=== PATIENT | male | born 1970 | race Caucasian/White ===

== ENCOUNTER 2017-06-17 13:32 | Inpatient (IN) | payer OTHER ==
[2017-06-17 14:21] VITALS: BMI 29.5
--- NOTE | 2017-06-17 15:11 | HP ---
CIWA Score - CIWA Score Nausea/Vomitin-Mild Nausea/No Vomiting Muscle Tremors: 4-Moderate,w/Arms Extend Anxiety: 4-Mod. Anxious/Guarded Agitation: 3 Paroxysmal Sweats: 3 Orientation: 0-Oriented Tacttile Disturbances: 1-Very Mild Itch/Numbness Auditory Disturbances: 0-None Visual Disturbances: 0-None Headache: 0-None Present CIWA-Ar Total Score: 16 Admission ROS BHS - HPI Chief Complaint: Withdrawal sx. Allergies/Adverse Reactions: Allergies Allergy/AdvReac Type Severity Reaction Status Date / Time No Known Allergies Allergy Verified 06/23/16 13:18 History of Present Illness: 47 y/o man with a long hx. of drug dependence is admitted for detox. Pt. has been in previous detox, denies significant period drug free. Last detox at [facility] > a month ago. Exam Limitations: No Limitations - Ebola screening Have you traveled outside of the country in the last 21 days: No Have you had contact with anyone from an Ebola affected area: No Have you been sick,other than usual withdrawal symptoms: No Do you have a fever: No - Review of Systems Constitutional: Diaphoresis EENT: reports: No Symptoms Reported Respiratory: reports: No Symptoms reported Cardiac: reports: No Symptoms Reported GI: reports: Nausea, Abdominal cramping Musculoskeletal: reports: Joint Pain Integumentary: reports: Sweating Neuro: reports: Seizure (last one 03/2016), Tremors Endocrine: reports: No Symptoms Reported Hematology: reports: No Symptoms Reported Psychiatric: reports: Orientated x3, Anxious Other Systems: Reviewed and Negative Patient History - Patient Medical History Hx Anemia: No Hx Asthma: No Hx Chronic Obstructive Pulmonary Disease (COPD): No Hx Cancer: No Hx Cardiac Disorders: No Hx Congestive Heart Failure: No Hx Hypertension: No Hx Hypercholesterolemia: No Hx Pacemaker: No HX Cerebrovascular Accident: No Hx Seizures: Yes (last one 03/2016) Hx Dementia: No Hx Diabetes: No Hx Gastrointestinal Disorders: Yes (TUMS NEEDED) Hx Liver Disease: No Hx Genitourinary Disorders: No Hx Sexually Transmitted Disorders: Yes (CHLAMYDIA X 2, IN THE PAST) Hx Renal Disease (ESRD): No Hx Thyroid Disease: No Hx Human Immunodeficiency Virus (HIV): No Hx Hepatitis C: No Hx Depression: No Hx Suicide Attempt: No Hx Bipolar Disorder: No Hx Schizophrenia: No - Patient Surgical History Past Surgical History: Yes Hx Neurologic Surgery: No Hx Cataract Extraction: No Hx Cardiac Surgery: No Hx Lung Surgery: No Hx Breast Surgery: No Hx Breast Biopsy: No Hx Abdominal Surgery: No Hx Appendectomy: No Hx Cholecystectomy: Yes (2004) Other Surgical History: right inguinal hernia x2 and left inguinal repair 2010; nose polyps removal - PPD History Previous Implant?: Yes Documented Results: Positive w/o proof PPD to be Administered?: No - Smoking Cessation Smoking history: Current every day smoker Have you smoked in the past 12 months: Yes Aproximately how many cigarettes per day: 25 Hx Chewing Tobacco Use: No Initiated information on smoking cessation: Yes 'Breaking Loose' booklet given: 06/17/17 - Substance & Tx. History Hx Alcohol Use: No Hx Substance Use: Yes Substance Use Type: Tranquilizers Hx Substance Use Treatment: Yes ([facility] 03/2017) - Substances Abused Alprazolam (Xanax) Route: Oral Frequency: Daily Amount used: 20mg Age of first use: 28 Date of Last Use: 06/17/17 Family Disease History - Family Disease History Family Disease History: Diabetes: Father (pancreatic CA alive,post surgical DM) , Heart Disease: Grandparent, Mother, CA: Father Admission Physical Exam BHS - Vital Signs Vital Signs: Vital Signs - 24 hr 06/17/17 14:18 Temperature 96.7 F L Pulse Rate 70 Respiratory 19 Rate Blood Pressure 117/77 - Physical General Appearance: Yes: Tremorous, Irritable, Sweating, Anxious HEENTM: Yes: Within Normal Limits Respiratory: Yes: Chest Non-Tender, Lungs Clear, Normal Breath Sounds Neck: Yes: Supple Breast: Yes: Breast Exam Deferred Cardiology: Yes: Regular Rhythm, Regular Rate, S1, S2 Abdominal: Yes: Normal Bowel Sounds, Non Tender, Soft Genitourinary: Yes: Within Normal Limits Back: Yes: Within Normal Limits Musculoskeletal: Yes: Within Normal Limits Extremities: Yes: Tremors Neurological: Yes: Fully Oriented, Alert Integumentary: Yes: Diaphoresis Lymphatic: Yes: Within Normal Limits - Diagnostic (1) Nicotine dependence Current Visit: Yes Status: Acute Qualifiers: Nicotine product type: cigarettes Substance use status: uncomplicated Qualified Code(s): F17.210 - Nicotine dependence, cigarettes, uncomplicated ; F17.210 - Nicotine dependence, cigarettes, uncomplicated (2) Opioid dependence on agonist therapy Current Visit: Yes Status: Acute (3) Uncomplicated sedative, hypnotic or anxiolytic withdrawal Current Visit: Yes Status: Acute (4) Acid reflux Current Visit: Yes Status: Chronic Qualifiers: Esophagitis presence: without esophagitis Qualified Code(s): K21.9 - Gastro-esophageal reflux disease without esophagitis; K21.9 - Gastro-esophageal reflux disease without esophagitis; K21.9 - Gastro-esophageal reflux disease without esophagitis Cleared for Admission BHS - Detox or Rehab S Level of Care: Medically Managed Detox Regimen/Protocol: Valium S Breath Alcohol Content Breath Alcohol Content: 0 Urine Drug Screen - Results Drug Screen Negative: No Urine Drug Screen Results: BZO-Benzodiazepines, MTD-Methadone, TCA-Tricyclic Antidepress
[2017-06-17] MEDS ORDERED: MENTHOL/PHENOL 1 EACH UD MM PRN (15:21)
[2017-06-17] MEDS ORDERED: hydrOXYzine PAMOATE 50 MG CAPSULE (FP) PO PRN (15:21)
[2017-06-17] MEDS ORDERED: MAGNESIUM HYDROX 2400MG/30ML ORAL SUSPENSION 30 ML CUP PO PRN (15:21)
[2017-06-17] MEDS ORDERED: LOPERAMIDE HCL 2 MG CAPSULE PO PRN (15:21)
[2017-06-17] MEDS ORDERED: MAGNESIUM CITRATE 300 ML BOTTLE PO PRN (15:21)
[2017-06-17] MEDS ORDERED: NICOTINE POLACRILEX 4 MG GUM BC PRN (15:21)
[2017-06-17] MEDS ORDERED: MAG HYDROX/AL HYDROX/SIMETH 30 ML UNIT-DOSE CUP PO PRN (15:21)
[2017-06-17] MEDS ORDERED: ACETAMINOPHEN 325 MG TABLET (FP) PO PRN (15:21)
[2017-06-17] MEDS ORDERED: P-EPHED 60MG/TRIPROLIDI 2.5MG TABLET PO PRN (15:21)
[2017-06-17] MEDS ORDERED: diazePAM 5 MG TABLET PO ONE (15:21)
[2017-06-17] MEDS ORDERED: guaiFENesin/D-METHORPHAN HB 10 ML UNIT-DOSE CUPS PO PRN (15:21)
[2017-06-17] MEDS ORDERED: diphenhydrAMINE HCL 50 MG CAPSULE PO PRN (15:21)
[2017-06-17] MEDS: NICOTINE 21 MG/24 HOURS TOPICAL PATCH TD SCH (19:46)
[2017-06-17] MEDS: GABAPENTIN 300 MG CAPSULE (FP) PO SCH (22:23)
[2017-06-17] MEDS: THIAMINE HCL 100 MG TABLET (FP) PO SCH (22:23)
[2017-06-17] MEDS: diazePAM 5 MG TABLET PO SCH (22:23)
[2017-06-17 23:02] LABS: URINE APPEARANCE SLCLOUDY; URINE BILIRUBIN NEGATIVE (NEGATIVE); URINE BLOOD NEGATIVE (NEGATIVE); URINE COLOR AMBER; URINE GLUCOSE (UA) NEGATIVE (NEGATIVE); URINE KETONE TRACE (NEGATIVE); URINE NITRITE NEGATIVE (NEGATIVE); URINE PROTEIN NEGATIVE (NEGATIVE); URINE UROBILINOGEN NEGATIVE mg/dL (0.2-1.0)
[2017-06-18] MEDS ORDERED: METHADONE HCL 10 MG TABLET ONE (05:50)
[2017-06-18] MEDS ORDERED: METHADONE HCL 40 MG DISPERSABLE TABLET ONE (05:51)
[2017-06-18] MEDS ORDERED: METHADONE HCL 10 MG TABLET PO SCH (06:00)
[2017-06-18] MEDS: diazePAM 5 MG TABLET PO SCH ×3 (06:04→22:21)
[2017-06-18] MEDS: GABAPENTIN 300 MG CAPSULE (FP) PO SCH ×3 (06:04→22:21)
[2017-06-18] MEDS: METHADONE 80 MG, METHADONE 30 MG PO SCH (06:04)
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
[2017-06-18 09:57] LABS: MCH 29.1 pg (25.7-33.7); MCHC 33.4 g/dl (32.0-35.9); MEAN CELL VOLUME 87.3 fl (80-96); MEAN PLT VOLUME 8.4 fl (7.5-11.1); PLATELET COUNT 224 K/MM3 (134-434); RDW 14.9 % (11.9-15.9); WHITE BLOOD COUNT 5.2 K/mm3 (4.0-10.0)
[2017-06-18 10:26] LABS: ALBUMIN 3.6 g/dl (3.4-5.0); ALK PHOS 59 U/L (45-117); ANION GAP 7 (8-16); BILIRUBIN,TOTAL 0.6 mg/dL (0.2-1.0); CALCIUM 8.3 mg/dL (8.5-10.1); CO2 29 mmol/L (21-32); CREATININE 0.8 mg/dL (0.7-1.3); GLUCOSE,RANDOM 106 mg/dL (74-106); SGOT/AST 16 U/L (15-37); SGPT/ALT 13 U/L (12-78); TOT PROT 6.9 g/dl (6.4-8.2)
[2017-06-18] MEDS: NICOTINE 21 MG/24 HOURS TOPICAL PATCH TD SCH (10:27)
[2017-06-18] MEDS: PRENATAL VITAMINS W/ FOLIC ACID TABLET (FP) PO SCH (10:27)
[2017-06-18] MEDS: diazePAM 5 MG TABLET PO PRN ×2 (10:27→17:13)
[2017-06-18 13:45] LABS: URINE LEUK ESTERASE Negative (NEGATIVE)
--- NOTE | 2017-06-18 15:19 | PN ---
S CIWA - CIWA Score Nausea/Vomitin Muscle Tremors: 4-Moderate,w/Arms Extend Anxiety: 4-Mod. Anxious/Guarded Agitation: 4-Moderately Restless Paroxysmal Sweats: 3 Orientation: 0-Oriented Tacttile Disturbances: 1-Very Mild Itch/Numbness Auditory Disturbances: 0-None Visual Disturbances: 0-None Headache: 1-Very Mild CIWA-Ar Total Score: 20 BHS Progress Note (SOAP) Subjective: Anxiety, tremor, chills, stomach ache, interrupted sleep Objective: 06/18/17 15:18 Last Vital Signs Temp Pulse Resp BP Pulse Ox 96.1 F L 70 18 118/62 06/18/17 13:11 06/18/17 13:11 06/18/17 13:11 06/18/17 13:11 Laboratory Tests 06/17/17 06/18/17 06/18/17 22:45 07:30 07:30 WBC 5.2 RBC 4.03 Hgb 11.7 Hct 35.2 L MCV 87.3 MCH 29.1 MCHC 33.4 RDW 14.9 Plt Count 224 MPV 8.4 Sodium 142 Potassium 4.0 Chloride 106 Carbon Dioxide 29 Anion Gap 7 L BUN 22 H D Creatinine 0.8 Creat Clearance w eGFR > 60 Random Glucose 106 Calcium 8.3 L Total Bilirubin 0.6 D AST 16 ALT 13 Alkaline Phosphatase 59 D Total Protein 6.9 Albumin 3.6 Urine Color Maria Ines Urine Appearance Slcloudy Urine pH 5.0 D Ur Specific [place] >= 1.030 H Urine Protein Negative Urine Glucose (UA) Negative Urine Ketones Trace H Urine Blood Negative Urine Nitrite Negative Urine Bilirubin Negative Urine Urobilinogen Negative Ur Leukocyte Esterase Negative RPR Titer 06/18/17 07:30 WBC RBC Hgb Hct MCV MCH MCHC RDW Plt Count MPV Sodium Potassium Chloride Carbon Dioxide Anion Gap BUN Creatinine Creat Clearance w eGFR Random Glucose Calcium Total Bilirubin AST ALT Alkaline Phosphatase Total Protein Albumin Urine Color Urine Appearance Urine pH Ur Specific [place] Urine Protein Urine Glucose (UA) Urine Ketones Urine Blood Urine Nitrite Urine Bilirubin Urine Urobilinogen Ur Leukocyte Esterase RPR Titer Nonreactive Labs noted: bun 22 Assessment: 06/18/17 15:19 Withdrawal symptoms Noted with azotemia Plan: Continue detox Azotemia: encouraged to drink lots of water
[2017-06-18] MEDS: IBUPROFEN 400 MG TABLET (FP) PO PRN (18:51)
[2017-06-18] MEDS: ZOLPIDEM TARTRATE 5 MG TABLET PO PRN (22:21)
[2017-06-18] MEDS: THIAMINE HCL 100 MG TABLET (FP) PO SCH (22:21)
[2017-06-19] MEDS ORDERED: METHADONE HCL 10 MG TABLET ONE (04:45)
[2017-06-19] MEDS ORDERED: METHADONE HCL 40 MG DISPERSABLE TABLET ONE (04:46)
[2017-06-19] MEDS: METHADONE 80 MG, METHADONE 30 MG PO SCH (05:16)
[2017-06-19] MEDS: GABAPENTIN 300 MG CAPSULE (FP) PO SCH ×3 (05:16→22:16)
[2017-06-19] MEDS: diazePAM 5 MG TABLET PO PRN ×4 (05:17→18:00)
[2017-06-19] MEDS: NICOTINE 21 MG/24 HOURS TOPICAL PATCH TD SCH (09:20)
[2017-06-19] MEDS: PRENATAL VITAMINS W/ FOLIC ACID TABLET (FP) PO SCH (09:22)
--- NOTE | 2017-06-19 10:19 | EKG ---
Test Reason : Blood Pressure : / mmHG Vent. Rate : 064 BPM Atrial Rate : 064 BPM P-R Int : 200 ms QRS Dur : 090 ms QT Int : 418 ms P-R-T Axes : 034 040 045 degrees QTc Int : 431 ms NORMAL SINUS RHYTHM NORMAL ECG NO PREVIOUS ECGS AVAILABLE Confirmed by MOISÉS JACKSON MD ([id number]) on 06/19/2017 10:18:39 AM Referred By: Confirmed By:MOISÉS JACKSON MD
[2017-06-19] MEDS: diazePAM 5 MG TABLET PO SCH ×2 (10:59→22:16)
--- NOTE | 2017-06-19 11:45 | PN ---
[facility] CIWA - CIWA Score Nausea/Vomitin-No Nausea/No Vomiting Muscle Tremors: 4-Moderate,w/Arms Extend Anxiety: 4-Mod. Anxious/Guarded Agitation: 4-Moderately Restless Paroxysmal Sweats: 1-Minimal Palms Moist Orientation: 0-Oriented Tacttile Disturbances: 3-Moderate Itch/Numb/Burn Auditory Disturbances: 0-None Visual Disturbances: 0-None Headache: 0-None Present CIWA-Ar Total Score: 16 S Progress Note (SOAP) Subjective: ANXIETY,TREMORS,COLD SWEATS,JITTERY,RESTLESSNESS. Objective: 06/19/17 11:44 Vital Signs Temperature 98.5 F 06/19/17 10:16 Pulse Rate 64 06/19/17 10:16 Respiratory Rate 20 06/19/17 10:16 Blood Pressure 137/83 06/19/17 10:16 O2 Sat by Pulse Oximetry (%) Laboratory Last Values WBC 5.2 K/mm3 (4.0-10.0) 06/18/17 07:30 RBC 4.03 M/mm3 (4.00-5.60) 06/18/17 07:30 Hgb 11.7 GM/dL (11.7-16.9) 06/18/17 07:30 Hct 35.2 % (35.4-49) L 06/18/17 07:30 MCV 87.3 fl (80-96) 06/18/17 07:30 MCH 29.1 pg (25.7-33.7) 06/18/17 07:30 MCHC 33.4 g/dl (32.0-35.9) 06/18/17 07:30 RDW 14.9 % (11.9-15.9) 06/18/17 07:30 Plt Count 224 K/MM3 (134-434) 06/18/17 07:30 MPV 8.4 fl (7.5-11.1) 06/18/17 07:30 Sodium 142 mmol/L (136-145) 06/18/17 07:30 Potassium 4.0 mmol/L (3.5-5.1) 06/18/17 07:30 Chloride 106 mmol/L (98-107) 06/18/17 07:30 Carbon Dioxide 29 mmol/L (21-32) 06/18/17 07:30 Anion Gap 7 (8-16) L 06/18/17 07:30 BUN 22 mg/dL (7-18) H D 06/18/17 07:30 Creatinine 0.8 mg/dL (0.7-1.3) 06/18/17 07:30 Creat Clearance w eGFR > 60 (>60) 06/18/17 07:30 Random Glucose 106 mg/dL (74-106) 06/18/17 07:30 Calcium 8.3 mg/dL (8.5-10.1) L 06/18/17 07:30 Total Bilirubin 0.6 mg/dL (0.2-1.0) D 06/18/17 07:30 AST 16 U/L (15-37) 06/18/17 07:30 ALT 13 U/L (12-78) 06/18/17 07:30 Alkaline Phosphatase 59 U/L (45-117) D 06/18/17 07:30 Total Protein 6.9 g/dl (6.4-8.2) 06/18/17 07:30 Albumin 3.6 g/dl (3.4-5.0) 06/18/17 07:30 Urine Color Maria Ines 06/17/17 22:45 Urine Appearance Slcloudy 06/17/17 22:45 Urine pH 5.0 (5.0-8.0) D 06/17/17 22:45 Ur Specific [place] >= 1.030 (1.005-1.025) H 06/17/17 22:45 Urine Protein Negative (NEGATIVE) 06/17/17 22:45 Urine Glucose (UA) Negative (NEGATIVE) 06/17/17 22:45 Urine Ketones Trace (NEGATIVE) H 06/17/17 22:45 Urine Blood Negative (NEGATIVE) 06/17/17 22:45 Urine Nitrite Negative (NEGATIVE) 06/17/17 22:45 Urine Bilirubin Negative (NEGATIVE) 06/17/17 22:45 Urine Urobilinogen Negative mg/dL (0.2-1.0) 06/17/17 22:45 Ur Leukocyte Esterase Negative (NEGATIVE) 06/17/17 22:45 RPR Titer Nonreactive (NONREACTIVE) 06/18/17 07:30 Assessment: 06/19/17 11:44 WITHDRAWAL SX Plan: CONTINUE DETOX
[2017-06-19] MEDS: IBUPROFEN 400 MG TABLET (FP) PO PRN (18:02)
[2017-06-19] MEDS: THIAMINE HCL 100 MG TABLET (FP) PO SCH (22:16)
[2017-06-19] MEDS: ZOLPIDEM TARTRATE 5 MG TABLET PO PRN (22:16)
[2017-06-20] MEDS ORDERED: METHADONE HCL 40 MG DISPERSABLE TABLET ONE (04:55)
[2017-06-20] MEDS ORDERED: METHADONE HCL 10 MG TABLET ONE (04:55)
[2017-06-20] MEDS: GABAPENTIN 300 MG CAPSULE (FP) PO SCH ×3 (05:47→22:28)
[2017-06-20] MEDS: METHADONE 80 MG, METHADONE 30 MG PO SCH (05:48)
[2017-06-20] MEDS: diazePAM 5 MG TABLET PO PRN ×2 (05:52→12:00)
[2017-06-20] MEDS: diazePAM 5 MG TABLET PO SCH ×2 (10:24→22:30)
[2017-06-20] MEDS: PRENATAL VITAMINS W/ FOLIC ACID TABLET (FP) PO SCH (10:24)
[2017-06-20] MEDS: NICOTINE 21 MG/24 HOURS TOPICAL PATCH TD SCH (10:25)
--- NOTE | 2017-06-20 10:53 | PN ---
BHS Progress Note (SOAP) Subjective: SLIGHT TO MODERATE ANXIETY,SWEATS,ALERT O X 3. NAD. Objective: 06/20/17 10:52 Vital Signs Temperature 98.6 F 06/20/17 09:33 Pulse Rate 65 06/20/17 09:33 Respiratory Rate 18 06/20/17 09:33 Blood Pressure 135/88 06/20/17 09:33 O2 Sat by Pulse Oximetry (%) Laboratory Last Values WBC 5.2 K/mm3 (4.0-10.0) 06/18/17 07:30 RBC 4.03 M/mm3 (4.00-5.60) 06/18/17 07:30 Hgb 11.7 GM/dL (11.7-16.9) 06/18/17 07:30 Hct 35.2 % (35.4-49) L 06/18/17 07:30 MCV 87.3 fl (80-96) 06/18/17 07:30 MCH 29.1 pg (25.7-33.7) 06/18/17 07:30 MCHC 33.4 g/dl (32.0-35.9) 06/18/17 07:30 RDW 14.9 % (11.9-15.9) 06/18/17 07:30 Plt Count 224 K/MM3 (134-434) 06/18/17 07:30 MPV 8.4 fl (7.5-11.1) 06/18/17 07:30 Sodium 142 mmol/L (136-145) 06/18/17 07:30 Potassium 4.0 mmol/L (3.5-5.1) 06/18/17 07:30 Chloride 106 mmol/L (98-107) 06/18/17 07:30 Carbon Dioxide 29 mmol/L (21-32) 06/18/17 07:30 Anion Gap 7 (8-16) L 06/18/17 07:30 BUN 22 mg/dL (7-18) H D 06/18/17 07:30 Creatinine 0.8 mg/dL (0.7-1.3) 06/18/17 07:30 Creat Clearance w eGFR > 60 (>60) 06/18/17 07:30 Random Glucose 106 mg/dL (74-106) 06/18/17 07:30 Calcium 8.3 mg/dL (8.5-10.1) L 06/18/17 07:30 Total Bilirubin 0.6 mg/dL (0.2-1.0) D 06/18/17 07:30 AST 16 U/L (15-37) 06/18/17 07:30 ALT 13 U/L (12-78) 06/18/17 07:30 Alkaline Phosphatase 59 U/L (45-117) D 06/18/17 07:30 Total Protein 6.9 g/dl (6.4-8.2) 06/18/17 07:30 Albumin 3.6 g/dl (3.4-5.0) 06/18/17 07:30 Urine Color Maria Ines 06/17/17 22:45 Urine Appearance Slcloudy 06/17/17 22:45 Urine pH 5.0 (5.0-8.0) D 06/17/17 22:45 Ur Specific [place] >= 1.030 (1.005-1.025) H 06/17/17 22:45 Urine Protein Negative (NEGATIVE) 06/17/17 22:45 Urine Glucose (UA) Negative (NEGATIVE) 06/17/17 22:45 Urine Ketones Trace (NEGATIVE) H 06/17/17 22:45 Urine Blood Negative (NEGATIVE) 06/17/17 22:45 Urine Nitrite Negative (NEGATIVE) 06/17/17 22:45 Urine Bilirubin Negative (NEGATIVE) 06/17/17 22:45 Urine Urobilinogen Negative mg/dL (0.2-1.0) 06/17/17 22:45 Ur Leukocyte Esterase Negative (NEGATIVE) 06/17/17 22:45 RPR Titer Nonreactive (NONREACTIVE) 06/18/17 07:30 Assessment: 06/20/17 10:53 WITHDRAWAL SX Plan: CONTINUE DETOX
[2017-06-20] MEDS: THIAMINE HCL 100 MG TABLET (FP) PO SCH (22:28)
[2017-06-20] MEDS: ZOLPIDEM TARTRATE 5 MG TABLET PO PRN (22:30)
[2017-06-21] MEDS ORDERED: METHADONE HCL 10 MG TABLET ONE (04:35)
[2017-06-21] MEDS ORDERED: METHADONE HCL 40 MG DISPERSABLE TABLET ONE (04:36)
[2017-06-21] MEDS: GABAPENTIN 300 MG CAPSULE (FP) PO SCH (05:24)
[2017-06-21] MEDS: METHADONE 80 MG, METHADONE 30 MG PO SCH (05:24)
[2017-06-21 09:42] VITALS: BP 125/80; PULSE 69; TEMP 97.7
[2017-06-21] MEDS ORDERED: diazePAM 5 MG TABLET PO SCH (10:00)
--- NOTE | 2017-06-21 11:41 | DS ---
[facility] Detox Discharge Summary Admission Date: 06/17/17 Discharge Date: 06/21/17 - History Present History: Opioid Dependence, Sedative Dependence, MMTP Additional Comments: PATIENT GOING TO [facility] FOR AFTERCARE. PATIENT WAS DISCHARGED FROM DETOX UNIT IN STABLE MEDICAL CONDITION. Pertinent Past History: Nicotine Dependence, MMTP, History of seizures, Acid Reflux. - Physical Exam Results Vital Signs: Vital Signs Temperature 97.7 F 06/21/17 09:41 Pulse Rate 69 06/21/17 09:41 Respiratory Rate 69 H 06/21/17 09:41 Blood Pressure 125/80 06/21/17 09:41 O2 Sat by Pulse Oximetry (%) Pertinent Admission Physical Exam Findings: WITHDRAWAL SYMPTOMS. Laboratory Tests 06/17/17 06/18/17 06/18/17 22:45 07:30 07:30 WBC 5.2 RBC 4.03 Hgb 11.7 Hct 35.2 L MCV 87.3 MCH 29.1 MCHC 33.4 RDW 14.9 Plt Count 224 MPV 8.4 Sodium 142 Potassium 4.0 Chloride 106 Carbon Dioxide 29 Anion Gap 7 L BUN 22 H D Creatinine 0.8 Creat Clearance w eGFR > 60 Random Glucose 106 Calcium 8.3 L Total Bilirubin 0.6 D AST 16 ALT 13 Alkaline Phosphatase 59 D Total Protein 6.9 Albumin 3.6 Urine Color Maria Ines Urine Appearance Slcloudy Urine pH 5.0 D Ur Specific [place] >= 1.030 H Urine Protein Negative Urine Glucose (UA) Negative Urine Ketones Trace H Urine Blood Negative Urine Nitrite Negative Urine Bilirubin Negative Urine Urobilinogen Negative Ur Leukocyte Esterase Negative RPR Titer 06/18/17 07:30 WBC RBC Hgb Hct MCV MCH MCHC RDW Plt Count MPV Sodium Potassium Chloride Carbon Dioxide Anion Gap BUN Creatinine Creat Clearance w eGFR Random Glucose Calcium Total Bilirubin AST ALT Alkaline Phosphatase Total Protein Albumin Urine Color Urine Appearance Urine pH Ur Specific [place] Urine Protein Urine Glucose (UA) Urine Ketones Urine Blood Urine Nitrite Urine Bilirubin Urine Urobilinogen Ur Leukocyte Esterase RPR Titer Nonreactive LABS NOTED. - Treatment Hospital Course: Detox Protocol Followed, Detoxed Safely, Responded well, Discharged Condition Good, Rehab Referral Accepted Patient has Accepted a Rehab Referral to: [facility]. - Medication Discharge Medications: Ambulatory Orders Gabapentin [Neurontin] 600 mg PO TID 06/17/17 - Diagnosis (1) Nicotine dependence Status: Chronic Qualifiers: Nicotine product type: cigarettes Substance use status: in withdrawal Qualified Code(s): F17.213 - Nicotine dependence, cigarettes, with withdrawal; F17.213 - Nicotine dependence, cigarettes, with withdrawal (2) Opioid dependence on agonist therapy Status: Chronic (3) Uncomplicated sedative, hypnotic or anxiolytic withdrawal Status: Acute (4) Acid reflux Status: Chronic Qualifiers: Esophagitis presence: without esophagitis Qualified Code(s): K21.9 - Gastro-esophageal reflux disease without esophagitis; K21.9 - Gastro-esophageal reflux disease without esophagitis; K21.9 - Gastro-esophageal reflux disease without esophagitis (5) Methadone maintenance therapy patient Status: Chronic (6) Substance-induced anxiety disorder Status: Acute (7) Substance-induced sleep disorder Status: Acute - AMA Did Patient Leave Against Medical Advice: No
== END 2017-06-21 09:30 | disposition home or self-care (01) | DRG 773 ==
LOC: YASAS 13:32 → Y3N 15:37
PROVIDERS: ADMIT Internal Medicine; ATTEND Internal Medicine
PROC: HZ2ZZZZ Detoxification Services for Substance Abuse Treatment (ICD-10-PCS; principal; 2017-06-20)
DX: F13.230 Sedative, hypnotic or anxiolytic dependence with withdrawal, uncomplicated (principal); F11.20 Opioid dependence, uncomplicated; F17.213 Nicotine dependence, cigarettes, with withdrawal; F19.280 Other psychoactive substance dependence with psychoactive substance-induced anxiety disorder; F19.282 Other psychoactive substance dependence with psychoactive substance-induced sleep disorder; K21.9 Gastro-esophageal reflux disease without esophagitis; R79.89 Other specified abnormal findings of blood chemistry; Z87.438 Personal history of other diseases of male genital organs; Z86.69 Personal history of other diseases of the nervous system and sense organs
CPT/HCPCS: 36415; 71020-TC; 80053; 81003; 85027; 86593; 93005; 93010

== ENCOUNTER 2018-06-11 15:15 | Inpatient (IN) | payer OTHER ==
[2018-06-11 16:22] VITALS: BMI 34.0
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
[2018-06-11] MEDS ORDERED: LOPERAMIDE HCL 2 MG CAPSULE PO PRN (18:22)
[2018-06-11] MEDS ORDERED: IBUPROFEN 400 MG TABLET (FP) PO PRN (18:22)
[2018-06-11] MEDS ORDERED: MENTHOL/PHENOL 1 EACH UD MM PRN (18:22)
[2018-06-11] MEDS ORDERED: guaiFENesin/D-METHORPHAN HB 10 ML UNIT-DOSE CUPS PO PRN (18:22)
[2018-06-11] MEDS ORDERED: P-EPHED 60MG/TRIPROLIDI 2.5MG TABLET PO PRN (18:22)
[2018-06-11] MEDS ORDERED: MAGNESIUM HYDROX 2400MG/30ML ORAL SUSPENSION 30 ML CUP PO PRN (18:22)
[2018-06-11] MEDS ORDERED: MAGNESIUM CITRATE 300 ML BOTTLE PO PRN (18:22)
[2018-06-11] MEDS ORDERED: NICOTINE POLACRILEX 4 MG GUM BC PRN (18:22)
[2018-06-11] MEDS ORDERED: MAG HYDROX/AL HYDROX/SIMETH 30 ML UNIT-DOSE CUP PO PRN (18:22)
[2018-06-11] MEDS ORDERED: diazePAM 5 MG TABLET PO ONE (19:00)
[2018-06-11] MEDS ORDERED: MELATONIN 5 MG TABLETS PO PRN (22:00)
[2018-06-11] MEDS: DOCUSATE SODIUM 100 MG CAPSULE (FP) PO SCH (22:11)
[2018-06-11] MEDS: GABAPENTIN 300 MG CAPSULE (FP) PO SCH (22:11)
[2018-06-11] MEDS: THIAMINE HCL 100 MG TABLET (FP) PO SCH (22:12)
[2018-06-11] MEDS: diazePAM 5 MG TABLET PO SCH (22:12)
[2018-06-11 22:18] LABS: URINE APPEARANCE CLEAR; URINE BILIRUBIN NEGATIVE (<2.0 mg/dL); URINE COLOR LTYELLOW; URINE GLUCOSE (UA) NEGATIVE (NEGATIVE); URINE KETONE NEGATIVE (NEGATIVE); URINE LEUK ESTERASE TRACE (NEGATIVE); URINE NITRITE NEGATIVE (NEGATIVE); URINE PROTEIN NEGATIVE (NEGATIVE); URINE UROBILINOGEN NEGATIVE mg/dL (0.2-1.0)
[2018-06-11 23:04] LABS: EPI CELLS RARE /HPF (FEW); URINE MUCUS RARE
[2018-06-12] MEDS: GABAPENTIN 300 MG CAPSULE (FP) PO SCH ×3 (05:41→21:03)
[2018-06-12] MEDS: diazePAM 5 MG TABLET PO SCH ×3 (05:41→21:03)
[2018-06-12] MEDS: PRENATAL VITAMINS W/ FOLIC ACID TABLET (FP) PO SCH (09:57)
[2018-06-12] MEDS: PANTOPRAZOLE 20 MG TABLET (FP) PO SCH (09:58)
[2018-06-12] MEDS: diazePAM 5 MG TABLET PO PRN ×2 (09:58→16:53)
[2018-06-12] MEDS ORDERED: METHADONE HCL 40 MG DISPERSABLE TABLET PO ONE (10:01)
[2018-06-12 10:17] LABS: HEMATOCRIT 33.2 % (35.4-49); MCH 28.5 pg (25.7-33.7); MCHC 33.1 g/dl (32.0-35.9); MEAN CELL VOLUME 86.2 fl (80-96); MEAN PLT VOLUME 8.6 fl (7.5-11.1); PLATELET COUNT 222 K/MM3 (134-434); RBC 3.85 M/mm3 (4.00-5.60); RDW 16.1 % (11.9-15.9); WHITE BLOOD COUNT 4.3 K/mm3 (4.0-10.0)
--- NOTE | 2018-06-12 10:29 | PN ---
[facility] CIWA - CIWA Score Nausea/Vomitin-Mild Nausea/No Vomiting Muscle Tremors: 4-Moderate,w/Arms Extend Anxiety: 4-Mod. Anxious/Guarded Agitation: 4-Moderately Restless Paroxysmal Sweats: 1-Minimal Palms Moist Orientation: 1-Uncertain about Date Tacttile Disturbances: 1-Very Mild Itch/Numbness Auditory Disturbances: 0-None Visual Disturbances: 0-None Headache: 1-Very Mild CIWA-Ar Total Score: 17 S Progress Note (SOAP) Subjective: sweat tremor disoriented to date restlessness nausea gassy trouble sleep at night on methadone maintenance 120 mg added to home med and reconciled by the software writer Objective: 06/12/18 10:30 Vital Signs Temperature 97.5 F L 06/12/18 08:48 Pulse Rate 60 06/12/18 08:48 Respiratory Rate 18 06/12/18 08:48 Blood Pressure 109/72 06/12/18 08:48 O2 Sat by Pulse Oximetry (%) Laboratory Last Values WBC 4.3 K/mm3 (4.0-10.0) 06/12/18 07:00 RBC 3.85 M/mm3 (4.00-5.60) L 06/12/18 07:00 Hgb 11.0 GM/dL (11.7-16.9) L 06/12/18 07:00 Hct 33.2 % (35.4-49) L 06/12/18 07:00 MCV 86.2 fl (80-96) 06/12/18 07:00 MCH 28.5 pg (25.7-33.7) 06/12/18 07:00 MCHC 33.1 g/dl (32.0-35.9) 06/12/18 07:00 RDW 16.1 % (11.9-15.9) H 06/12/18 07:00 Plt Count 222 K/MM3 (134-434) 06/12/18 07:00 MPV 8.6 fl (7.5-11.1) 06/12/18 07:00 Urine Color Ltyellow 06/11/18 20:48 Urine Appearance Clear 06/11/18 20:48 Urine pH 5.0 (5.0-8.0) 06/11/18 20:48 Ur Specific [place] 1.015 (1.010-1.035) 06/11/18 20:48 Urine Protein Negative (NEGATIVE) 06/11/18 20:48 Urine Glucose (UA) Negative (NEGATIVE) 06/11/18 20:48 Urine Ketones Negative (NEGATIVE) 06/11/18 20:48 Urine Blood Negative (NEGATIVE) 06/11/18 20:48 Urine Nitrite Negative (NEGATIVE) 06/11/18 20:48 Urine Bilirubin Negative (<2.0 mg/dL) 06/11/18 20:48 Urine Urobilinogen Negative mg/dL (0.2-1.0) 06/11/18 20:48 Ur Leukocyte Esterase Trace (NEGATIVE) 06/11/18 20:48 Urine WBC (Auto) <1 /hpf (3-5) 06/11/18 20:48 Urine RBC (Auto) None /hpf (0-3) 06/11/18 20:48 Ur Epithelial Cells Rare /HPF (FEW) 06/11/18 20:48 Urine Mucus Rare 06/11/18 20:48 lab noted Assessment: 06/12/18 10:30 withdrawal sx methadone maintenance 120 mg Plan: continue detox begin methadone
[2018-06-12] MEDS: hydrOXYzine PAMOATE 50 MG CAPSULE (FP) PO PRN (10:31)
[2018-06-12] MEDS: NICOTINE 21 MG/24 HOURS TOPICAL PATCH TD SCH (10:32)
[2018-06-12 10:33] LABS: ALBUMIN 3.3 g/dl (3.4-5.0); ALK PHOS 57 U/L (45-117); ANION GAP 8 MMOL/L (8-16); BILIRUBIN,TOTAL 0.3 mg/dL (0.2-1); BLOOD UREA NITROGEN 21 mg/dL (7-18); CALCIUM 8.5 mg/dL (8.5-10.1); CHLORIDE 106 mmol/L (98-107); CO2 28 mmol/L (21-32); CREATININE 0.7 mg/dL (0.55-1.3); GLUCOSE,RANDOM 103 mg/dL (74-106); POTASSIUM 4.3 mmol/L (3.5-5.1); SGOT/AST 26 U/L (15-37); SGPT/ALT 17 U/L (13-61); SODIUM 143 mmol/L (136-145); TOT PROT 6.9 g/dl (6.4-8.2)
[2018-06-12] MEDS ORDERED: ONDANSETRON *ODT* 4 MG TABLET SL ONE (10:45)
[2018-06-12] MEDS: ACETAMINOPHEN 325 MG TABLET (FP) PO PRN ×2 (11:58→20:19)
--- NOTE | 2018-06-12 13:17 | EKG ---
Test Reason : Blood Pressure : / mmHG Vent. Rate : 060 BPM Atrial Rate : 060 BPM P-R Int : 200 ms QRS Dur : 088 ms QT Int : 412 ms P-R-T Axes : 043 020 041 degrees QTc Int : 412 ms POOR DATA QUALITY, INTERPRETATION MAY BE ADVERSELY AFFECTED NORMAL SINUS RHYTHM LOW VOLTAGE QRS BORDERLINE ECG WHEN COMPARED WITH ECG OF 17-JUN-2017 20:05, NO SIGNIFICANT CHANGE WAS FOUND Confirmed by MD JOBY, VIJAYA ([id number]) on 06/12/2018 1:17:11 PM Referred By: Confirmed By:VIJAYA HEMPHILL MD
[2018-06-12] MEDS: THIAMINE HCL 100 MG TABLET (FP) PO SCH (21:04)
[2018-06-12] MEDS: DOCUSATE SODIUM 100 MG CAPSULE (FP) PO SCH (21:34)
[2018-06-13] MEDS: diazePAM 5 MG TABLET PO PRN ×4 (01:19→19:13)
[2018-06-13] MEDS: GABAPENTIN 300 MG CAPSULE (FP) PO SCH ×3 (05:27→23:04)
[2018-06-13] MEDS: METHADONE HCL 40 MG DISPERSABLE TABLET PO SCH (05:27)
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
--- NOTE | 2018-06-13 08:37 | PN ---
S CIWA - CIWA Score Nausea/Vomitin-Mild Nausea/No Vomiting Muscle Tremors: 3 Anxiety: 4-Mod. Anxious/Guarded Agitation: 3 Paroxysmal Sweats: 1-Minimal Palms Moist Orientation: 0-Oriented Tacttile Disturbances: 1-Very Mild Itch/Numbness Auditory Disturbances: 0-None Visual Disturbances: 0-None Headache: 1-Very Mild CIWA-Ar Total Score: 14 BHS Progress Note (SOAP) Subjective: anxiety, restlessness, mild gi distress, trouble sleep at night Objective: 06/13/18 09:45 Vital Signs Temperature 98.2 F 06/13/18 07:07 Pulse Rate 58 L 06/13/18 07:07 Respiratory Rate 18 06/13/18 07:07 Blood Pressure 117/69 06/13/18 07:07 O2 Sat by Pulse Oximetry (%) Laboratory Last Values WBC 4.3 K/mm3 (4.0-10.0) 06/12/18 07:00 RBC 3.85 M/mm3 (4.00-5.60) L 06/12/18 07:00 Hgb 11.0 GM/dL (11.7-16.9) L 06/12/18 07:00 Hct 33.2 % (35.4-49) L 06/12/18 07:00 MCV 86.2 fl (80-96) 06/12/18 07:00 MCH 28.5 pg (25.7-33.7) 06/12/18 07:00 MCHC 33.1 g/dl (32.0-35.9) 06/12/18 07:00 RDW 16.1 % (11.9-15.9) H 06/12/18 07:00 Plt Count 222 K/MM3 (134-434) 06/12/18 07:00 MPV 8.6 fl (7.5-11.1) 06/12/18 07:00 Sodium 143 mmol/L (136-145) 06/12/18 07:00 Potassium 4.3 mmol/L (3.5-5.1) 06/12/18 07:00 Chloride 106 mmol/L (98-107) 06/12/18 07:00 Carbon Dioxide 28 mmol/L (21-32) 06/12/18 07:00 Anion Gap 8 MMOL/L (8-16) 06/12/18 07:00 BUN 21 mg/dL (7-18) H 06/12/18 07:00 Creatinine 0.7 mg/dL (0.55-1.3) 06/12/18 07:00 Creat Clearance w eGFR > 60 (>60) 06/12/18 07:00 Random Glucose 103 mg/dL (74-106) 06/12/18 07:00 Calcium 8.5 mg/dL (8.5-10.1) 06/12/18 07:00 Total Bilirubin 0.3 mg/dL (0.2-1) 06/12/18 07:00 AST 26 U/L (15-37) 06/12/18 07:00 ALT 17 U/L (13-61) 06/12/18 07:00 Alkaline Phosphatase 57 U/L (45-117) 06/12/18 07:00 Total Protein 6.9 g/dl (6.4-8.2) 06/12/18 07:00 Albumin 3.3 g/dl (3.4-5.0) L 06/12/18 07:00 Urine Color Ltyellow 06/11/18 20:48 Urine Appearance Clear 06/11/18 20:48 Urine pH 5.0 (5.0-8.0) 06/11/18 20:48 Ur Specific [place] 1.015 (1.010-1.035) 06/11/18 20:48 Urine Protein Negative (NEGATIVE) 06/11/18 20:48 Urine Glucose (UA) Negative (NEGATIVE) 06/11/18 20:48 Urine Ketones Negative (NEGATIVE) 06/11/18 20:48 Urine Blood Negative (NEGATIVE) 06/11/18 20:48 Urine Nitrite Negative (NEGATIVE) 06/11/18 20:48 Urine Bilirubin Negative (<2.0 mg/dL) 06/11/18 20:48 Urine Urobilinogen Negative mg/dL (0.2-1.0) 06/11/18 20:48 Ur Leukocyte Esterase Trace (NEGATIVE) 06/11/18 20:48 Urine WBC (Auto) <1 /hpf (3-5) 06/11/18 20:48 Urine RBC (Auto) None /hpf (0-3) 06/11/18 20:48 Ur Epithelial Cells Rare /HPF (FEW) 06/11/18 20:48 Urine Mucus Rare 06/11/18 20:48 RPR Titer Nonreactive (NONREACTIVE) 06/12/18 07:00 lab noted Assessment: 06/13/18 09:45 withdrawal sx Plan: continue detox
[2018-06-13] MEDS: PRENATAL VITAMINS W/ FOLIC ACID TABLET (FP) PO SCH (11:24)
[2018-06-13] MEDS: PANTOPRAZOLE 20 MG TABLET (FP) PO SCH (11:24)
[2018-06-13] MEDS: diazePAM 5 MG TABLET PO SCH ×2 (11:24→23:04)
[2018-06-13] MEDS: NICOTINE 21 MG/24 HOURS TOPICAL PATCH TD SCH (11:25)
[2018-06-13] MEDS: hydrOXYzine PAMOATE 50 MG CAPSULE (FP) PO PRN (16:45)
[2018-06-13] MEDS: DOCUSATE SODIUM 100 MG CAPSULE (FP) PO SCH (23:04)
[2018-06-13] MEDS: THIAMINE HCL 100 MG TABLET (FP) PO SCH (23:04)
[2018-06-14] MEDS: diazePAM 5 MG TABLET PO PRN ×4 (00:57→17:16)
[2018-06-14] MEDS: GABAPENTIN 300 MG CAPSULE (FP) PO SCH ×3 (05:55→22:20)
[2018-06-14] MEDS: METHADONE HCL 40 MG DISPERSABLE TABLET PO SCH (05:56)
[2018-06-14] MEDS: PRENATAL VITAMINS W/ FOLIC ACID TABLET (FP) PO SCH (10:08)
[2018-06-14] MEDS: NICOTINE 21 MG/24 HOURS TOPICAL PATCH TD SCH (10:08)
[2018-06-14] MEDS: diazePAM 5 MG TABLET PO SCH ×2 (10:08→22:20)
[2018-06-14] MEDS: PANTOPRAZOLE 20 MG TABLET (FP) PO SCH (10:08)
--- NOTE | 2018-06-14 10:27 | PN ---
BHS Progress Note (SOAP) Subjective: feeling better no tremor less anxiousness social with peers in day room discuss aftercare Objective: 06/14/18 10:25 Vital Signs Temperature 99.1 F 06/14/18 09:06 Pulse Rate 82 06/14/18 09:06 Respiratory Rate 19 06/14/18 09:06 Blood Pressure 158/76 06/14/18 09:06 O2 Sat by Pulse Oximetry (%) Laboratory Last Values WBC 4.3 K/mm3 (4.0-10.0) 06/12/18 07:00 RBC 3.85 M/mm3 (4.00-5.60) L 06/12/18 07:00 Hgb 11.0 GM/dL (11.7-16.9) L 06/12/18 07:00 Hct 33.2 % (35.4-49) L 06/12/18 07:00 MCV 86.2 fl (80-96) 06/12/18 07:00 MCH 28.5 pg (25.7-33.7) 06/12/18 07:00 MCHC 33.1 g/dl (32.0-35.9) 06/12/18 07:00 RDW 16.1 % (11.9-15.9) H 06/12/18 07:00 Plt Count 222 K/MM3 (134-434) 06/12/18 07:00 MPV 8.6 fl (7.5-11.1) 06/12/18 07:00 Sodium 143 mmol/L (136-145) 06/12/18 07:00 Potassium 4.3 mmol/L (3.5-5.1) 06/12/18 07:00 Chloride 106 mmol/L (98-107) 06/12/18 07:00 Carbon Dioxide 28 mmol/L (21-32) 06/12/18 07:00 Anion Gap 8 MMOL/L (8-16) 06/12/18 07:00 BUN 21 mg/dL (7-18) H 06/12/18 07:00 Creatinine 0.7 mg/dL (0.55-1.3) 06/12/18 07:00 Creat Clearance w eGFR > 60 (>60) 06/12/18 07:00 Random Glucose 103 mg/dL (74-106) 06/12/18 07:00 Calcium 8.5 mg/dL (8.5-10.1) 06/12/18 07:00 Total Bilirubin 0.3 mg/dL (0.2-1) 06/12/18 07:00 AST 26 U/L (15-37) 06/12/18 07:00 ALT 17 U/L (13-61) 06/12/18 07:00 Alkaline Phosphatase 57 U/L (45-117) 06/12/18 07:00 Total Protein 6.9 g/dl (6.4-8.2) 06/12/18 07:00 Albumin 3.3 g/dl (3.4-5.0) L 06/12/18 07:00 Urine Color Ltyellow 06/11/18 20:48 Urine Appearance Clear 06/11/18 20:48 Urine pH 5.0 (5.0-8.0) 06/11/18 20:48 Ur Specific [place] 1.015 (1.010-1.035) 06/11/18 20:48 Urine Protein Negative (NEGATIVE) 06/11/18 20:48 Urine Glucose (UA) Negative (NEGATIVE) 06/11/18 20:48 Urine Ketones Negative (NEGATIVE) 06/11/18 20:48 Urine Blood Negative (NEGATIVE) 06/11/18 20:48 Urine Nitrite Negative (NEGATIVE) 06/11/18 20:48 Urine Bilirubin Negative (<2.0 mg/dL) 06/11/18 20:48 Urine Urobilinogen Negative mg/dL (0.2-1.0) 06/11/18 20:48 Ur Leukocyte Esterase Trace (NEGATIVE) 06/11/18 20:48 Urine WBC (Auto) <1 /hpf (3-5) 06/11/18 20:48 Urine RBC (Auto) None /hpf (0-3) 06/11/18 20:48 Ur Epithelial Cells Rare /HPF (FEW) 06/11/18 20:48 Urine Mucus Rare 06/11/18 20:48 RPR Titer Nonreactive (NONREACTIVE) 06/12/18 07:00 lab noted patient experienced anxiousness about possible meeting exwife Assessment: 06/14/18 10:26 mild withdrawal sx Plan: medically supervised detox
[2018-06-14] MEDS: hydrOXYzine PAMOATE 50 MG CAPSULE (FP) PO PRN ×2 (14:43→18:56)
[2018-06-14] MEDS: ACETAMINOPHEN 325 MG TABLET (FP) PO PRN (14:43)
[2018-06-14] MEDS: THIAMINE HCL 100 MG TABLET (FP) PO SCH (22:20)
[2018-06-14] MEDS: DOCUSATE SODIUM 100 MG CAPSULE (FP) PO SCH (22:22)
[2018-06-15] MEDS: GABAPENTIN 300 MG CAPSULE (FP) PO SCH (06:10)
[2018-06-15] MEDS: METHADONE HCL 40 MG DISPERSABLE TABLET PO SCH (06:11)
[2018-06-15] MEDS: hydrOXYzine PAMOATE 50 MG CAPSULE (FP) PO PRN ×2 (06:14→10:20)
--- NOTE | 2018-06-15 08:34 | DS ---
[facility] Detox Discharge Summary Admission Date: 06/11/18 Discharge Date: 06/15/18 - History Present History: Sedative Dependence - Physical Exam Results Vital Signs: Vital Signs Temperature 97.5 F L 06/15/18 07:40 Pulse Rate 65 06/15/18 07:40 Respiratory Rate 18 06/15/18 07:40 Blood Pressure 124/80 06/15/18 07:40 O2 Sat by Pulse Oximetry (%) - Treatment Hospital Course: Detox Protocol Followed, Detoxed Safely, Responded well, Discharged Condition Good, Rehab Referral Accepted - Medication Discharge Medications: Ambulatory Orders Methadone [Dolophine -] 120 mg PO DAILY@0600 06/12/18 hydrOXYzine PAMOATE [Vistaril -] 50 mg PO Q4HWA #90 capsule 06/13/18 Famotidine [Pepcid -] 20 mg PO DAILY #30 tablet 06/14/18 Gabapentin [Neurontin] 600 mg PO TID #90 mg 06/14/18 - Diagnosis (1) Uncomplicated sedative, hypnotic or anxiolytic withdrawal Current Visit: Yes Status: Chronic (2) Acid reflux Current Visit: Yes Status: Chronic Qualifiers: Esophagitis presence: without esophagitis Qualified Code(s): K21.9 - Gastro -esophageal reflux disease without esophagitis (3) Constipation Current Visit: Yes Status: Chronic Qualifiers: Constipation type: unspecified constipation type Qualified Code(s): K59.00 - Constipation, unspecified (4) Edema Current Visit: Yes Status: Chronic Qualifiers: Edema type: unspecified Qualified Code(s): R60.9 - Edema, unspecified (5) Hx of carpal tunnel syndrome Current Visit: Yes Status: Chronic (6) Nicotine dependence Current Visit: Yes Status: Chronic Qualifiers: Nicotine product type: cigarettes Substance use status: uncomplicated Qualified Code(s): F17.210 - Nicotine dependence, cigarettes, uncomplicated (7) Opioid dependence on agonist therapy Current Visit: Yes Status: Chronic (8) PTSD (post-traumatic stress disorder) Current Visit: Yes Status: Chronic (9) Drug-induced mood disorder Current Visit: No Status: Acute (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
[2018-06-15 09:03] VITALS: BP 119/76; PULSE 76; TEMP 98.7
[2018-06-15] MEDS ORDERED: diazePAM 5 MG TABLET PO SCH (10:00)
[2018-06-15] MEDS: PRENATAL VITAMINS W/ FOLIC ACID TABLET (FP) PO SCH (10:20)
[2018-06-15] MEDS: PANTOPRAZOLE 20 MG TABLET (FP) PO SCH (10:20)
[2018-06-15] MEDS: NICOTINE 21 MG/24 HOURS TOPICAL PATCH TD SCH (10:20)
== END 2018-06-15 11:26 | disposition other institution (70) | DRG 773 ==
LOC: YASAS 15:15 → Y6N 17:29
PROC: HZ2ZZZZ Detoxification Services for Substance Abuse Treatment (ICD-10-PCS; principal; 2018-06-11)
DX: F13.230 Sedative, hypnotic or anxiolytic dependence with withdrawal, uncomplicated (principal); F11.20 Opioid dependence, uncomplicated; F17.210 Nicotine dependence, cigarettes, uncomplicated; F43.10 Post-traumatic stress disorder, unspecified; F19.24 Other psychoactive substance dependence with psychoactive substance-induced mood disorder; F19.280 Other psychoactive substance dependence with psychoactive substance-induced anxiety disorder; F19.282 Other psychoactive substance dependence with psychoactive substance-induced sleep disorder; K21.9 Gastro-esophageal reflux disease without esophagitis; K59.00 Constipation, unspecified; R60.9 Edema, unspecified; Z86.69 Personal history of other diseases of the nervous system and sense organs
CPT/HCPCS: 36415; 71046-TC-FY; 80053; 81003; 81015; 85027; 86593; 93005; 93010; Q0162

== ENCOUNTER 2018-06-15 11:35 | Inpatient (IN) | payer OTHER ==
[2018-06-15] MEDS ORDERED: NICOTINE POLACRILEX 4 MG GUM BUC PRN (11:41)
[2018-06-15] MEDS ORDERED: MAG HYDROX/AL HYDROX/SIMETH 30 ML UNIT-DOSE CUP PO PRN (11:41)
[2018-06-15] MEDS ORDERED: ACETAMINOPHEN 325 MG TABLET (FP) PO PRN (11:41)
[2018-06-15] MEDS ORDERED: LOPERAMIDE HCL 2 MG CAPSULE PO PRN (11:41)
[2018-06-15] MEDS ORDERED: MENTHOL/PHENOL 1 EACH UD MM PRN (11:41)
[2018-06-15] MEDS ORDERED: MAGNESIUM CITRATE 300 ML BOTTLE PO PRN (11:41)
[2018-06-15] MEDS ORDERED: guaiFENesin/D-METHORPHAN HB 10 ML UNIT-DOSE CUPS PO PRN (11:41)
[2018-06-15] MEDS ORDERED: MAGNESIUM HYDROX 2400MG/30ML ORAL SUSPENSION 30 ML CUP PO PRN (11:41)
[2018-06-15] MEDS ORDERED: P-EPHED 60MG/TRIPROLIDI 2.5MG TABLET PO PRN (11:41)
--- NOTE | 2018-06-15 11:41 | HP ---
[facility] Rehab Assess/Revision - Admission History Admitted to Rehab from[facility] - Findings Detox History & Physical reviewed: Yes Concur with findings: Yes
[2018-06-15 12:23] VITALS: BMI 34.1
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
[2018-06-15] MEDS: GABAPENTIN 300 MG CAPSULE (FP) PO SCH ×2 (17:43→21:29)
[2018-06-15] MEDS: THIAMINE HCL 100 MG TABLET (FP) PO SCH (21:29)
[2018-06-15] MEDS: hydrOXYzine PAMOATE 50 MG CAPSULE (FP) PO PRN (21:30)
[2018-06-15] MEDS: SUVOREXANT 10 MG TABLET PO PRN (21:30)
[2018-06-16] MEDS: MELATONIN 5 MG TABLETS PO PRN ×2 (00:32→23:55)
[2018-06-16] MEDS: GABAPENTIN 300 MG CAPSULE (FP) PO SCH ×3 (06:26→21:40)
[2018-06-16] MEDS: METHADONE HCL 40 MG DISPERSABLE TABLET PO SCH (06:26)
[2018-06-16] MEDS: NICOTINE 21 MG/24 HOURS TOPICAL PATCH TD SCH (09:48)
[2018-06-16] MEDS: PRENATAL VITAMINS W/ FOLIC ACID TABLET (FP) PO SCH (09:48)
[2018-06-16] MEDS: PANTOPRAZOLE 40 MG TABLET (FP) PO SCH (09:48)
[2018-06-16] MEDS: hydrOXYzine PAMOATE 50 MG CAPSULE (FP) PO PRN ×3 (14:16→23:00)
[2018-06-16] MEDS: THIAMINE HCL 100 MG TABLET (FP) PO SCH (21:40)
[2018-06-16] MEDS: SUVOREXANT 10 MG TABLET PO PRN (21:41)
[2018-06-17] MEDS: GABAPENTIN 300 MG CAPSULE (FP) PO SCH ×3 (06:26→21:56)
[2018-06-17] MEDS: METHADONE HCL 40 MG DISPERSABLE TABLET PO SCH (06:26)
[2018-06-17] MEDS: PRENATAL VITAMINS W/ FOLIC ACID TABLET (FP) PO SCH (09:39)
[2018-06-17] MEDS: PANTOPRAZOLE 40 MG TABLET (FP) PO SCH (09:39)
[2018-06-17] MEDS: NICOTINE 21 MG/24 HOURS TOPICAL PATCH TD SCH (09:39)
[2018-06-17] MEDS: IBUPROFEN 400 MG TABLET (FP) PO PRN (15:04)
[2018-06-17] MEDS: hydrOXYzine PAMOATE 50 MG CAPSULE (FP) PO PRN (21:57)
[2018-06-17] MEDS: SUVOREXANT 10 MG TABLET PO PRN (21:57)
[2018-06-17] MEDS: THIAMINE HCL 100 MG TABLET (FP) PO SCH (21:57)
[2018-06-18] MEDS: MELATONIN 5 MG TABLETS PO PRN (00:21)
[2018-06-18] MEDS: METHADONE HCL 40 MG DISPERSABLE TABLET PO SCH (05:58)
[2018-06-18] MEDS: GABAPENTIN 300 MG CAPSULE (FP) PO SCH ×3 (05:58→21:23)
[2018-06-18] MEDS: IBUPROFEN 400 MG TABLET (FP) PO PRN ×2 (06:36→21:23)
[2018-06-18] MEDS: PANTOPRAZOLE 40 MG TABLET (FP) PO SCH (10:02)
[2018-06-18] MEDS: PRENATAL VITAMINS W/ FOLIC ACID TABLET (FP) PO SCH (10:02)
[2018-06-18] MEDS: NICOTINE 21 MG/24 HOURS TOPICAL PATCH TD SCH (10:02)
[2018-06-18] MEDS: hydrOXYzine PAMOATE 50 MG CAPSULE (FP) PO PRN ×2 (10:04→21:23)
[2018-06-18] MEDS: DOCUSATE SODIUM 100 MG CAPSULE (FP) PO SCH ×2 (15:50→21:23)
[2018-06-18] MEDS: THIAMINE HCL 100 MG TABLET (FP) PO SCH (21:23)
[2018-06-18] MEDS ORDERED: SUVOREXANT 10 MG TABLET PO PRN (22:00)
[2018-06-19] MEDS: DOCUSATE SODIUM 100 MG CAPSULE (FP) PO SCH ×3 (06:12→21:33)
[2018-06-19] MEDS: METHADONE HCL 40 MG DISPERSABLE TABLET PO SCH (06:12)
[2018-06-19] MEDS: GABAPENTIN 300 MG CAPSULE (FP) PO SCH ×3 (06:12→21:33)
--- NOTE | 2018-06-19 08:13 | PN ---
S Progress Note Note: Patient complains of experiencing difficulty to sleep despite taking Belsomra 10 mg po at bedtime last night. Requests that dosage of medication be increased. Will increase Belsomra to 15 mg po HS prn for insomnia
[2018-06-19] MEDS: PANTOPRAZOLE 40 MG TABLET (FP) PO SCH (10:04)
[2018-06-19] MEDS: hydrOXYzine PAMOATE 50 MG CAPSULE (FP) PO PRN ×3 (10:04→21:33)
[2018-06-19] MEDS: PRENATAL VITAMINS W/ FOLIC ACID TABLET (FP) PO SCH (10:04)
[2018-06-19] MEDS: NICOTINE 21 MG/24 HOURS TOPICAL PATCH TD SCH (10:04)
[2018-06-19] MEDS: THIAMINE HCL 100 MG TABLET (FP) PO SCH (21:33)
[2018-06-19] MEDS: SUVOREXANT 15 MG TABLET PO PRN (21:34)
[2018-06-19] MEDS: IBUPROFEN 400 MG TABLET (FP) PO PRN (23:16)
[2018-06-20] MEDS: MELATONIN 5 MG TABLETS PO PRN (00:30)
[2018-06-20] MEDS: GABAPENTIN 300 MG CAPSULE (FP) PO SCH ×3 (06:07→21:10)
[2018-06-20] MEDS: METHADONE HCL 40 MG DISPERSABLE TABLET PO SCH (06:07)
[2018-06-20] MEDS: DOCUSATE SODIUM 100 MG CAPSULE (FP) PO SCH ×3 (06:07→21:10)
[2018-06-20] MEDS: NICOTINE 21 MG/24 HOURS TOPICAL PATCH TD SCH (09:58)
[2018-06-20] MEDS: PRENATAL VITAMINS W/ FOLIC ACID TABLET (FP) PO SCH (09:59)
[2018-06-20] MEDS: PANTOPRAZOLE 40 MG TABLET (FP) PO SCH (09:59)
[2018-06-20] MEDS: hydrOXYzine PAMOATE 50 MG CAPSULE (FP) PO PRN ×2 (10:01→21:13)
[2018-06-20] MEDS: IBUPROFEN 400 MG TABLET (FP) PO PRN ×2 (14:10→22:27)
[2018-06-20] MEDS: THIAMINE HCL 100 MG TABLET (FP) PO SCH (21:10)
[2018-06-20] MEDS: SUVOREXANT 15 MG TABLET PO PRN (21:12)
[2018-06-21] MEDS: GABAPENTIN 300 MG CAPSULE (FP) PO SCH ×3 (06:17→21:49)
[2018-06-21] MEDS: DOCUSATE SODIUM 100 MG CAPSULE (FP) PO SCH ×3 (06:17→21:49)
[2018-06-21] MEDS: METHADONE HCL 40 MG DISPERSABLE TABLET PO SCH (06:17)
[2018-06-21] MEDS: hydrOXYzine PAMOATE 50 MG CAPSULE (FP) PO PRN ×3 (09:27→21:49)
[2018-06-21] MEDS: IBUPROFEN 400 MG TABLET (FP) PO PRN ×2 (09:27→21:49)
[2018-06-21] MEDS: PANTOPRAZOLE 40 MG TABLET (FP) PO SCH (09:28)
[2018-06-21] MEDS: PRENATAL VITAMINS W/ FOLIC ACID TABLET (FP) PO SCH (09:28)
[2018-06-21] MEDS: NICOTINE 21 MG/24 HOURS TOPICAL PATCH TD SCH (09:29)
[2018-06-21] MEDS: THIAMINE HCL 100 MG TABLET (FP) PO SCH (21:49)
[2018-06-21] MEDS: SUVOREXANT 15 MG TABLET PO PRN (21:49)
[2018-06-22] MEDS: METHADONE HCL 40 MG DISPERSABLE TABLET PO SCH (06:10)
[2018-06-22] MEDS: GABAPENTIN 300 MG CAPSULE (FP) PO SCH ×3 (06:11→21:32)
[2018-06-22] MEDS: DOCUSATE SODIUM 100 MG CAPSULE (FP) PO SCH ×3 (06:11→21:31)
[2018-06-22] MEDS: IBUPROFEN 400 MG TABLET (FP) PO PRN ×2 (09:57→21:32)
[2018-06-22] MEDS: PANTOPRAZOLE 40 MG TABLET (FP) PO SCH (09:58)
[2018-06-22] MEDS: PRENATAL VITAMINS W/ FOLIC ACID TABLET (FP) PO SCH (09:58)
[2018-06-22] MEDS: hydrOXYzine PAMOATE 50 MG CAPSULE (FP) PO PRN ×3 (09:58→21:32)
[2018-06-22] MEDS: NICOTINE 21 MG/24 HOURS TOPICAL PATCH TD SCH (09:58)
[2018-06-22] MEDS: THIAMINE HCL 100 MG TABLET (FP) PO SCH (21:31)
[2018-06-22] MEDS: SUVOREXANT 15 MG TABLET PO PRN (21:32)
[2018-06-22] MEDS ORDERED: SUVOREXANT 10 MG TABLET PO PRN (22:00)
[2018-06-23] MEDS: DOCUSATE SODIUM 100 MG CAPSULE (FP) PO SCH ×3 (05:55→21:48)
[2018-06-23] MEDS: METHADONE HCL 40 MG DISPERSABLE TABLET PO SCH (05:55)
[2018-06-23] MEDS: GABAPENTIN 300 MG CAPSULE (FP) PO SCH ×3 (05:55→21:48)
[2018-06-23] MEDS: NICOTINE 21 MG/24 HOURS TOPICAL PATCH TD SCH (10:17)
[2018-06-23] MEDS: PRENATAL VITAMINS W/ FOLIC ACID TABLET (FP) PO SCH (10:17)
[2018-06-23] MEDS: PANTOPRAZOLE 40 MG TABLET (FP) PO SCH (10:17)
[2018-06-23] MEDS: hydrOXYzine PAMOATE 50 MG CAPSULE (FP) PO PRN ×2 (14:58→21:48)
[2018-06-23] MEDS: IBUPROFEN 400 MG TABLET (FP) PO PRN (21:47)
[2018-06-23] MEDS: THIAMINE HCL 100 MG TABLET (FP) PO SCH (21:48)
[2018-06-23] MEDS: SUVOREXANT 15 MG TABLET PO PRN (21:48)
[2018-06-24] MEDS: GABAPENTIN 300 MG CAPSULE (FP) PO SCH ×3 (06:03→21:36)
[2018-06-24] MEDS: DOCUSATE SODIUM 100 MG CAPSULE (FP) PO SCH ×3 (06:03→21:37)
[2018-06-24] MEDS: METHADONE HCL 40 MG DISPERSABLE TABLET PO SCH (06:03)
[2018-06-24] MEDS: PRENATAL VITAMINS W/ FOLIC ACID TABLET (FP) PO SCH (09:53)
[2018-06-24] MEDS: NICOTINE 21 MG/24 HOURS TOPICAL PATCH TD SCH (09:53)
[2018-06-24] MEDS: PANTOPRAZOLE 40 MG TABLET (FP) PO SCH (09:53)
[2018-06-24] MEDS: hydrOXYzine PAMOATE 50 MG CAPSULE (FP) PO PRN (14:40)
[2018-06-24] MEDS: IBUPROFEN 400 MG TABLET (FP) PO PRN ×2 (14:40→21:37)
[2018-06-24] MEDS: THIAMINE HCL 100 MG TABLET (FP) PO SCH (21:36)
[2018-06-24] MEDS: SUVOREXANT 15 MG TABLET PO PRN (21:36)
[2018-06-25] MEDS: GABAPENTIN 300 MG CAPSULE (FP) PO SCH ×3 (06:15→21:08)
[2018-06-25] MEDS: METHADONE HCL 40 MG DISPERSABLE TABLET PO SCH (06:15)
[2018-06-25] MEDS: DOCUSATE SODIUM 100 MG CAPSULE (FP) PO SCH ×3 (06:15→21:08)
[2018-06-25] MEDS: PRENATAL VITAMINS W/ FOLIC ACID TABLET (FP) PO SCH (10:05)
[2018-06-25] MEDS: PANTOPRAZOLE 40 MG TABLET (FP) PO SCH (10:05)
[2018-06-25] MEDS: NICOTINE 21 MG/24 HOURS TOPICAL PATCH TD SCH (10:06)
[2018-06-25] MEDS: hydrOXYzine PAMOATE 50 MG CAPSULE (FP) PO PRN ×3 (10:06→21:09)
[2018-06-25] MEDS: AMMONIUM LACTATE 12% LOTION 225 GM BOTTLE TP SCH (12:07)
[2018-06-25] MEDS: IBUPROFEN 400 MG TABLET (FP) PO PRN ×2 (15:21→21:10)
[2018-06-25] MEDS: THIAMINE HCL 100 MG TABLET (FP) PO SCH (21:07)
[2018-06-25] MEDS: MELATONIN 5 MG TABLETS PO PRN (21:08)
[2018-06-25] MEDS: SUVOREXANT 15 MG TABLET PO PRN (21:08)
[2018-06-25] MEDS ORDERED: SUVOREXANT 10 MG TABLET PO PRN (22:00)
[2018-06-26] MEDS: GABAPENTIN 300 MG CAPSULE (FP) PO SCH ×3 (06:07→21:25)
[2018-06-26] MEDS: METHADONE HCL 40 MG DISPERSABLE TABLET PO SCH (06:07)
[2018-06-26] MEDS: DOCUSATE SODIUM 100 MG CAPSULE (FP) PO SCH ×3 (06:07→21:25)
[2018-06-26] MEDS: PANTOPRAZOLE 40 MG TABLET (FP) PO SCH (09:54)
[2018-06-26] MEDS: PRENATAL VITAMINS W/ FOLIC ACID TABLET (FP) PO SCH (09:54)
[2018-06-26] MEDS: AMMONIUM LACTATE 12% LOTION 225 GM BOTTLE TP SCH (09:54)
[2018-06-26] MEDS: NICOTINE 21 MG/24 HOURS TOPICAL PATCH TD SCH (09:54)
--- NOTE | 2018-06-26 11:51 | HP ---
MARTY VASQUEZ Rehab Assess/Revision - Admission History Admitted to Rehab from: [facility] [place] - Vital signs Vital Signs: Vital Signs Period Temp Pulse Resp BP Sys/Curry Pulse Ox Last 24 Hr 98.1 F 73 18-18 102/64 - Findings Detox History & Physical reviewed: Yes Concur with findings: Yes Inpatient Rehab Admission - Initial Determination Are CD services needed?: Yes Free of communicable disease: Yes - Rehab Admission Criteria Previous failed treatment: Yes Comorbidities: Yes Lacks judgement: Yes
[2018-06-26] MEDS: hydrOXYzine PAMOATE 50 MG CAPSULE (FP) PO PRN ×2 (14:23→21:25)
[2018-06-26] MEDS: THIAMINE HCL 100 MG TABLET (FP) PO SCH (21:25)
[2018-06-26] MEDS: IBUPROFEN 400 MG TABLET (FP) PO PRN (21:25)
[2018-06-26] MEDS: SUVOREXANT 15 MG TABLET PO PRN (21:26)
[2018-06-27] MEDS: DOCUSATE SODIUM 100 MG CAPSULE (FP) PO SCH ×3 (06:00→21:35)
[2018-06-27] MEDS: GABAPENTIN 300 MG CAPSULE (FP) PO SCH ×3 (06:00→21:35)
[2018-06-27] MEDS: METHADONE HCL 40 MG DISPERSABLE TABLET PO SCH (06:00)
[2018-06-27] MEDS: PRENATAL VITAMINS W/ FOLIC ACID TABLET (FP) PO SCH (09:56)
[2018-06-27] MEDS: PANTOPRAZOLE 40 MG TABLET (FP) PO SCH (09:56)
[2018-06-27] MEDS: NICOTINE 21 MG/24 HOURS TOPICAL PATCH TD SCH (09:56)
[2018-06-27] MEDS: AMMONIUM LACTATE 12% LOTION 225 GM BOTTLE TP SCH (09:57)
[2018-06-27] MEDS: hydrOXYzine PAMOATE 50 MG CAPSULE (FP) PO PRN ×2 (14:08→21:37)
[2018-06-27] MEDS: THIAMINE HCL 100 MG TABLET (FP) PO SCH (21:35)
[2018-06-27] MEDS: IBUPROFEN 400 MG TABLET (FP) PO PRN (21:37)
[2018-06-27] MEDS: SUVOREXANT 15 MG TABLET PO PRN (21:37)
[2018-06-28] MEDS: DOCUSATE SODIUM 100 MG CAPSULE (FP) PO SCH ×3 (06:02→21:57)
[2018-06-28] MEDS: METHADONE HCL 40 MG DISPERSABLE TABLET PO SCH (06:02)
[2018-06-28] MEDS: GABAPENTIN 300 MG CAPSULE (FP) PO SCH ×3 (06:02→21:57)
[2018-06-28] MEDS ORDERED: PT OWN MED DRAWER 7, Y5N ONE (08:27)
[2018-06-28] MEDS: NICOTINE 21 MG/24 HOURS TOPICAL PATCH TD SCH (09:45)
[2018-06-28] MEDS: PRENATAL VITAMINS W/ FOLIC ACID TABLET (FP) PO SCH (09:45)
[2018-06-28] MEDS: hydrOXYzine PAMOATE 50 MG CAPSULE (FP) PO PRN ×3 (09:45→21:57)
[2018-06-28] MEDS: PANTOPRAZOLE 40 MG TABLET (FP) PO SCH (09:45)
[2018-06-28] MEDS: AMMONIUM LACTATE 12% LOTION 225 GM BOTTLE TP SCH (09:46)
[2018-06-28] MEDS: IBUPROFEN 400 MG TABLET (FP) PO PRN ×2 (14:26→21:58)
[2018-06-28] MEDS: THIAMINE HCL 100 MG TABLET (FP) PO SCH (21:57)
[2018-06-28] MEDS: SUVOREXANT 15 MG TABLET PO PRN (21:58)
[2018-06-29] MEDS: METHADONE HCL 40 MG DISPERSABLE TABLET PO SCH (06:16)
[2018-06-29] MEDS: DOCUSATE SODIUM 100 MG CAPSULE (FP) PO SCH ×3 (06:16→21:21)
[2018-06-29] MEDS: GABAPENTIN 300 MG CAPSULE (FP) PO SCH ×3 (06:16→21:20)
[2018-06-29] MEDS ORDERED: PT OWN MED DRAWER 7, Y5N ONE (08:37)
[2018-06-29] MEDS: PRENATAL VITAMINS W/ FOLIC ACID TABLET (FP) PO SCH (10:00)
[2018-06-29] MEDS: AMMONIUM LACTATE 12% LOTION 225 GM BOTTLE TP SCH (10:00)
[2018-06-29] MEDS: PANTOPRAZOLE 40 MG TABLET (FP) PO SCH (10:00)
[2018-06-29] MEDS: NICOTINE 21 MG/24 HOURS TOPICAL PATCH TD SCH (10:00)
[2018-06-29] MEDS: hydrOXYzine PAMOATE 50 MG CAPSULE (FP) PO PRN ×2 (14:00→21:20)
[2018-06-29] MEDS: IBUPROFEN 400 MG TABLET (FP) PO PRN (21:20)
[2018-06-29] MEDS: THIAMINE HCL 100 MG TABLET (FP) PO SCH (21:21)
[2018-06-29] MEDS: SUVOREXANT 15 MG TABLET PO PRN (21:21)
[2018-06-30] MEDS: METHADONE HCL 40 MG DISPERSABLE TABLET PO SCH (06:21)
[2018-06-30] MEDS: DOCUSATE SODIUM 100 MG CAPSULE (FP) PO SCH ×3 (06:21→21:21)
[2018-06-30] MEDS: GABAPENTIN 300 MG CAPSULE (FP) PO SCH ×3 (06:21→21:21)
[2018-06-30] MEDS: NICOTINE 21 MG/24 HOURS TOPICAL PATCH TD SCH (10:02)
[2018-06-30] MEDS: PRENATAL VITAMINS W/ FOLIC ACID TABLET (FP) PO SCH (10:02)
[2018-06-30] MEDS: PANTOPRAZOLE 40 MG TABLET (FP) PO SCH (10:02)
[2018-06-30] MEDS: AMMONIUM LACTATE 12% LOTION 225 GM BOTTLE TP SCH (10:03)
[2018-06-30] MEDS ORDERED: PT OWN MED DRAWER 7, Y5N ONE (10:04)
[2018-06-30] MEDS: IBUPROFEN 400 MG TABLET (FP) PO PRN (15:01)
[2018-06-30] MEDS: hydrOXYzine PAMOATE 50 MG CAPSULE (FP) PO PRN ×2 (15:02→21:22)
[2018-06-30] MEDS: THIAMINE HCL 100 MG TABLET (FP) PO SCH (21:21)
[2018-07-01] MEDS: GABAPENTIN 300 MG CAPSULE (FP) PO SCH ×3 (06:08→21:14)
[2018-07-01] MEDS: METHADONE HCL 40 MG DISPERSABLE TABLET PO SCH (06:08)
[2018-07-01] MEDS: DOCUSATE SODIUM 100 MG CAPSULE (FP) PO SCH ×3 (06:08→21:14)
[2018-07-01] MEDS: NICOTINE 21 MG/24 HOURS TOPICAL PATCH TD SCH (09:58)
[2018-07-01] MEDS: PANTOPRAZOLE 40 MG TABLET (FP) PO SCH (09:58)
[2018-07-01] MEDS: PRENATAL VITAMINS W/ FOLIC ACID TABLET (FP) PO SCH (09:58)
[2018-07-01] MEDS: AMMONIUM LACTATE 12% LOTION 225 GM BOTTLE TP SCH (09:59)
[2018-07-01] MEDS: hydrOXYzine PAMOATE 50 MG CAPSULE (FP) PO PRN ×2 (14:51→21:16)
[2018-07-01] MEDS: IBUPROFEN 400 MG TABLET (FP) PO PRN (14:51)
[2018-07-01] MEDS: THIAMINE HCL 100 MG TABLET (FP) PO SCH (21:14)
[2018-07-01] MEDS ORDERED: SUVOREXANT 15 MG TABLET PO ONE (23:17)
--- NOTE | 2018-07-01 23:23 | PN ---
[facility] Progress Note Note: Psychiatry Attending's on-call note : Called for renewal of belsomra. Chart reviewed. Dose confirmed. Spoke to patient via telephone. Mr Stock denies adverse effects. Reports insomnia. Wants the medication. Reminded of virtues of sleep hygiene. Belsomra 15 mg po hs. Re-ordered.
[2018-07-02] MEDS: GABAPENTIN 300 MG CAPSULE (FP) PO SCH ×3 (06:07→21:24)
[2018-07-02] MEDS: METHADONE HCL 40 MG DISPERSABLE TABLET PO SCH (06:08)
[2018-07-02] MEDS: DOCUSATE SODIUM 100 MG CAPSULE (FP) PO SCH ×3 (06:08→21:26)
[2018-07-02] MEDS: NICOTINE 21 MG/24 HOURS TOPICAL PATCH TD SCH (10:20)
[2018-07-02] MEDS: PANTOPRAZOLE 40 MG TABLET (FP) PO SCH (10:20)
[2018-07-02] MEDS: PRENATAL VITAMINS W/ FOLIC ACID TABLET (FP) PO SCH (10:20)
[2018-07-02] MEDS: AMMONIUM LACTATE 12% LOTION 225 GM BOTTLE TP SCH (10:21)
[2018-07-02] MEDS: IBUPROFEN 400 MG TABLET (FP) PO PRN (15:37)
[2018-07-02] MEDS: hydrOXYzine PAMOATE 50 MG CAPSULE (FP) PO PRN ×2 (15:38→21:26)
[2018-07-02] MEDS: THIAMINE HCL 100 MG TABLET (FP) PO SCH (21:24)
[2018-07-03] MEDS: METHADONE HCL 40 MG DISPERSABLE TABLET PO SCH (06:04)
[2018-07-03] MEDS: DOCUSATE SODIUM 100 MG CAPSULE (FP) PO SCH ×3 (06:04→21:59)
[2018-07-03] MEDS: GABAPENTIN 300 MG CAPSULE (FP) PO SCH ×3 (06:05→21:59)
[2018-07-03] MEDS: PRENATAL VITAMINS W/ FOLIC ACID TABLET (FP) PO SCH (10:16)
[2018-07-03] MEDS: IBUPROFEN 400 MG TABLET (FP) PO PRN (10:16)
[2018-07-03] MEDS: NICOTINE 21 MG/24 HOURS TOPICAL PATCH TD SCH (10:16)
[2018-07-03] MEDS: PANTOPRAZOLE 40 MG TABLET (FP) PO SCH (10:16)
[2018-07-03] MEDS: AMMONIUM LACTATE 12% LOTION 225 GM BOTTLE TP SCH (10:16)
[2018-07-03] MEDS: hydrOXYzine PAMOATE 50 MG CAPSULE (FP) PO PRN ×3 (10:17→21:58)
[2018-07-03] MEDS: THIAMINE HCL 100 MG TABLET (FP) PO SCH (21:58)
[2018-07-04] MEDS: GABAPENTIN 300 MG CAPSULE (FP) PO SCH ×3 (06:16→22:00)
[2018-07-04] MEDS: METHADONE HCL 40 MG DISPERSABLE TABLET PO SCH (06:16)
[2018-07-04] MEDS: DOCUSATE SODIUM 100 MG CAPSULE (FP) PO SCH ×3 (06:16→22:00)
[2018-07-04] MEDS: PRENATAL VITAMINS W/ FOLIC ACID TABLET (FP) PO SCH (10:07)
[2018-07-04] MEDS: NICOTINE 21 MG/24 HOURS TOPICAL PATCH TD SCH (10:07)
[2018-07-04] MEDS: PANTOPRAZOLE 40 MG TABLET (FP) PO SCH (10:07)
[2018-07-04] MEDS: hydrOXYzine PAMOATE 50 MG CAPSULE (FP) PO PRN ×3 (10:08→22:03)
[2018-07-04] MEDS: AMMONIUM LACTATE 12% LOTION 225 GM BOTTLE TP SCH (10:08)
[2018-07-04] MEDS: THIAMINE HCL 100 MG TABLET (FP) PO SCH (22:00)
[2018-07-04] MEDS: IBUPROFEN 400 MG TABLET (FP) PO PRN (22:02)
[2018-07-05] MEDS: DOCUSATE SODIUM 100 MG CAPSULE (FP) PO SCH (05:59)
[2018-07-05] MEDS: GABAPENTIN 300 MG CAPSULE (FP) PO SCH (05:59)
[2018-07-05] MEDS ORDERED: METHADONE HCL 40 MG DISPERSABLE TABLET PO SCH (06:00)
[2018-07-05 06:51] VITALS: BP 103/63; PULSE 75; TEMP 97.7
--- NOTE | 2018-07-05 09:26 | PN ---
S Progress Note Note: Patient completed rehabilitation protocol and dischrhe to home iin stable comdition. Discharge order issued.
== END 2018-07-05 10:00 | disposition home or self-care (01) | DRG 772 ==
LOC: YASAS 11:35 → Y3W 11:36
PROVIDERS: ADMIT Psychiatry & Neurology Psychiatry; ATTEND Psychiatry & Neurology Psychiatry
PROC: HZ42ZZZ Group Counseling for Substance Abuse Treatment, Cognitive-Behavioral (ICD-10-PCS; principal; 2018-06-15)
DX: F13.20 Sedative, hypnotic or anxiolytic dependence, uncomplicated (principal); F11.20 Opioid dependence, uncomplicated; F17.210 Nicotine dependence, cigarettes, uncomplicated; F41.9 Anxiety disorder, unspecified; F43.10 Post-traumatic stress disorder, unspecified; F19.282 Other psychoactive substance dependence with psychoactive substance-induced sleep disorder; K21.9 Gastro-esophageal reflux disease without esophagitis; M54.30 Sciatica, unspecified side; R76.11 Nonspecific reaction to tuberculin skin test without active tuberculosis

== ENCOUNTER 2018-11-15 13:52 | Inpatient (IN) | payer OTHER ==
[2018-11-15 16:26] VITALS: BMI 33.4
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
[2018-11-15] MEDS ORDERED: MAG HYDROX/AL HYDROX/SIMETH 30 ML UNIT-DOSE CUP PO PRN (17:38)
[2018-11-15] MEDS ORDERED: hydrOXYzine PAMOATE 25 MG CAPSULE (FP) PO PRN (17:38)
[2018-11-15] MEDS ORDERED: BISMUTH SUBSALICYLATE 524 MG/30 ML UD PO PRN (17:38)
[2018-11-15] MEDS ORDERED: IBUPROFEN 400 MG TABLET (FP) PO PRN (17:38)
[2018-11-15] MEDS ORDERED: ACETAMINOPHEN 325 MG TABLET (FP) PO PRN ×2 (17:38)
[2018-11-15] MEDS ORDERED: MELATONIN 5 MG TABLETS PO PRN (17:38)
[2018-11-15] MEDS ORDERED: MENTHOL/PHENOL 1 EACH UD MM PRN (17:38)
[2018-11-15] MEDS ORDERED: MAGNESIUM CITRATE 300 ML BOTTLE PO PRN (17:38)
[2018-11-15] MEDS ORDERED: MAGNESIUM HYDROX 2400MG/30ML ORAL SUSPENSION 30 ML CUP PO PRN (17:38)
[2018-11-15] MEDS ORDERED: AMMONIUM LACTATE 12% LOTION 225 GM BOTTLE TP PRN (18:13)
[2018-11-15] MEDS: diazePAM 5 MG TABLET PO PRN (20:09)
[2018-11-15] MEDS: diazePAM 5 MG TABLET PO SCH (22:27)
[2018-11-15] MEDS: THIAMINE HCL 100 MG TABLET (FP) PO SCH (22:27)
[2018-11-15] MEDS: GABAPENTIN 100 MG CAPSULE (FP) PO SCH (22:27)
[2018-11-16] MEDS: diazePAM 5 MG TABLET PO PRN ×3 (02:05→17:07)
[2018-11-16] MEDS: diazePAM 5 MG TABLET PO SCH ×3 (05:24→22:04)
[2018-11-16] MEDS: GABAPENTIN 100 MG CAPSULE (FP) PO SCH ×3 (05:24→22:04)
[2018-11-16] MEDS ORDERED: METHADONE HCL 40 MG DISPERSABLE TABLET PO ONE (08:45)
[2018-11-16] MEDS: PRENATAL VITAMINS W/ FOLIC ACID TABLET (FP) PO SCH (09:30)
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
[2018-11-16 11:28] LABS: HEMATOCRIT 35.5 % (35.4-49); MCH 30.1 pg (25.7-33.7); MCHC 33.8 g/dl (32.0-35.9); MEAN CELL VOLUME 89.1 fl (80-96); MEAN PLT VOLUME 8.3 fl (7.5-11.1); PLATELET COUNT 246 K/MM3 (134-434); RBC 3.99 M/mm3 (4.00-5.60); RDW 16.9 % (11.9-15.9); WHITE BLOOD COUNT 4.9 K/mm3 (4.0-10.0)
[2018-11-16 11:53] LABS: ALBUMIN 3.4 g/dl (3.4-5.0); ALK PHOS 80 U/L (45-117); ANION GAP 6 MMOL/L (8-16); BILIRUBIN,TOTAL 0.2 mg/dL (0.2-1); BLOOD UREA NITROGEN 18 mg/dL (7-18); CALCIUM 8.2 mg/dL (8.5-10.1); CHLORIDE 104 mmol/L (98-107); CO2 30 mmol/L (21-32); CREATININE 0.7 mg/dL (0.55-1.3); GLUCOSE,RANDOM 111 mg/dL (74-106); POTASSIUM 4.5 mmol/L (3.5-5.1); SGOT/AST 17 U/L (15-37); SGPT/ALT 13 U/L (13-61); SODIUM 140 mmol/L (136-145); TOT PROT 7.2 g/dl (6.4-8.2)
[2018-11-16] MEDS: NICOTINE 21 MG/24 HOURS TOPICAL PATCH TD SCH (13:38)
--- NOTE | 2018-11-16 14:49 | PN ---
[facility] Progress Note (SOAP) Subjective: pt here for detox from benzo use- on valium, pt requesting nicotine patch O: Vital Signs - 24 hr 11/15/18 11/15/18 11/16/18 16:24 22:14 00:30 Temperature 97.9 F 98.1 F Pulse Rate 68 76 Respiratory 18 18 18 Rate Blood Pressure 118/68 116/68 11/16/18 11/16/18 11/16/18 03:30 06:00 09:20 Temperature 97.7 F 97.7 F Pulse Rate 73 67 Respiratory 18 18 20 Rate Blood Pressure 132/77 120/76 11/16/18 13:53 Temperature 98.4 F Pulse Rate 68 Respiratory 18 Rate Blood Pressure 129/82 Laboratory Tests 11/16/18 11/16/18 11/16/18 07:00 07:00 07:00 WBC 4.9 RBC 3.99 L Hgb 12.0 Hct 35.5 MCV 89.1 MCH 30.1 MCHC 33.8 RDW 16.9 H Plt Count 246 MPV 8.3 Sodium 140 Potassium 4.5 Chloride 104 Carbon Dioxide 30 Anion Gap 6 L BUN 18 Creatinine 0.7 Creat Clearance w eGFR 119.37 Random Glucose 111 H Calcium 8.2 L Total Bilirubin 0.2 AST 17 ALT 13 Alkaline Phosphatase 80 Total Protein 7.2 Albumin 3.4 RPR Titer Nonreactive labs and VS WNL a/p: continue benzo detox, prn clonidine/vistaril nicotine patch and gum
[2018-11-16] MEDS: cloNIDine HCL 0.1 MG TABLET PO PRN (19:19)
[2018-11-16] MEDS: hydrOXYzine PAMOATE 50 MG CAPSULE (FP) PO PRN (19:19)
[2018-11-16] MEDS: QUEtiapine FUMARATE 50 MG TABLET PO SCH (22:04)
[2018-11-16] MEDS: THIAMINE HCL 100 MG TABLET (FP) PO SCH (22:04)
[2018-11-17] MEDS: METHADONE HCL 40 MG DISPERSABLE TABLET PO SCH (05:52)
[2018-11-17] MEDS: GABAPENTIN 100 MG CAPSULE (FP) PO SCH ×3 (05:53→22:05)
[2018-11-17] MEDS: diazePAM 5 MG TABLET PO PRN ×3 (05:55→17:07)
[2018-11-17] MEDS: PRENATAL VITAMINS W/ FOLIC ACID TABLET (FP) PO SCH (10:11)
[2018-11-17] MEDS: NICOTINE 21 MG/24 HOURS TOPICAL PATCH TD SCH (10:11)
[2018-11-17] MEDS: diazePAM 5 MG TABLET PO SCH ×2 (10:12→22:04)
--- NOTE | 2018-11-17 10:53 | PN ---
[facility] CIWA - CIWA Score Nausea/Vomitin Muscle Tremors: 2 Anxiety: 2 Agitation: 0-Normal Activity Paroxysmal Sweats: 2 Orientation: 0-Oriented Tacttile Disturbances: 0-None Auditory Disturbances: 1-Very Mild Visual Disturbances: 1-Very Mild Sensitivity Headache: 0-None Present CIWA-Ar Total Score: 11 [facility] Progress Note (SOAP) Subjective: c/o interrupted sleep, nausea, interrupted sleep Objective: 11/17/18 10:53 Vital Signs Temperature 98.0 F 11/17/18 09:36 Pulse Rate 95 H 11/17/18 09:36 Respiratory Rate 18 11/17/18 09:36 Blood Pressure 121/78 11/17/18 09:36 O2 Sat by Pulse Oximetry (%) Laboratory Last Values WBC 4.9 K/mm3 (4.0-10.0) 11/16/18 07:00 RBC 3.99 M/mm3 (4.00-5.60) L 11/16/18 07:00 Hgb 12.0 GM/dL (11.7-16.9) 11/16/18 07:00 Hct 35.5 % (35.4-49) 11/16/18 07:00 MCV 89.1 fl (80-96) 11/16/18 07:00 MCH 30.1 pg (25.7-33.7) 11/16/18 07:00 MCHC 33.8 g/dl (32.0-35.9) 11/16/18 07:00 RDW 16.9 % (11.9-15.9) H 11/16/18 07:00 Plt Count 246 K/MM3 (134-434) 11/16/18 07:00 MPV 8.3 fl (7.5-11.1) 11/16/18 07:00 Sodium 140 mmol/L (136-145) 11/16/18 07:00 Potassium 4.5 mmol/L (3.5-5.1) 11/16/18 07:00 Chloride 104 mmol/L (98-107) 11/16/18 07:00 Carbon Dioxide 30 mmol/L (21-32) 11/16/18 07:00 Anion Gap 6 MMOL/L (8-16) L 11/16/18 07:00 BUN 18 mg/dL (7-18) 11/16/18 07:00 Creatinine 0.7 mg/dL (0.55-1.3) 11/16/18 07:00 Creat Clearance w eGFR 119.37 (>60) 11/16/18 07:00 Random Glucose 111 mg/dL (74-106) H 11/16/18 07:00 Calcium 8.2 mg/dL (8.5-10.1) L 11/16/18 07:00 Total Bilirubin 0.2 mg/dL (0.2-1) 11/16/18 07:00 AST 17 U/L (15-37) 11/16/18 07:00 ALT 13 U/L (13-61) 11/16/18 07:00 Alkaline Phosphatase 80 U/L (45-117) 11/16/18 07:00 Total Protein 7.2 g/dl (6.4-8.2) 11/16/18 07:00 Albumin 3.4 g/dl (3.4-5.0) 11/16/18 07:00 RPR Titer Nonreactive (NONREACTIVE) 11/16/18 07:00 11/17/18 14:28 AOx3 full ROM ambulating in the unit no acute distress Assessment: 11/17/18 14:28 withdrawal sx Plan: continue detox increase PO fluids continue to monitor
[2018-11-17] MEDS: hydrOXYzine PAMOATE 50 MG CAPSULE (FP) PO PRN (12:41)
[2018-11-17] MEDS: cloNIDine HCL 0.1 MG TABLET PO PRN (20:30)
[2018-11-17] MEDS: THIAMINE HCL 100 MG TABLET (FP) PO SCH (22:05)
[2018-11-17] MEDS: QUEtiapine FUMARATE 50 MG TABLET PO SCH (22:05)
[2018-11-18] MEDS: diazePAM 5 MG TABLET PO PRN ×2 (01:45→14:40)
[2018-11-18] MEDS: GABAPENTIN 100 MG CAPSULE (FP) PO SCH (05:49)
[2018-11-18] MEDS: METHADONE HCL 40 MG DISPERSABLE TABLET PO SCH (05:49)
[2018-11-18] MEDS ORDERED: diazePAM 5 MG TABLET PO SCH (06:00)
[2018-11-18] MEDS: PRENATAL VITAMINS W/ FOLIC ACID TABLET (FP) PO SCH (12:53)
[2018-11-18] MEDS: NICOTINE 21 MG/24 HOURS TOPICAL PATCH TD SCH (12:53)
[2018-11-18] MEDS: GABAPENTIN 300 MG CAPSULE (FP) PO SCH ×2 (13:21→22:15)
--- NOTE | 2018-11-18 16:04 | PN ---
S Progress Note (SOAP) Subjective: Anxious, sweating, chills, tremor, interrupted sleep. Patient stated that he was on neurontin 600mg TID and it was changed to 300mg TID when he was at [facility]. Patient stated that neurontin 300mg TID was helping him a lot with his anxiety and requesting for his neurontin 100mg TID to be increased to 300mg TID. Objective: 11/18/18 16:01 Last Vital Signs Temp Pulse Resp BP Pulse Ox 98.8 F 77 18 122/79 11/18/18 13:13 11/18/18 13:13 11/18/18 13:13 11/18/18 13:13 Laboratory Tests 11/16/18 11/16/18 11/16/18 07:00 07:00 07:00 WBC 4.9 RBC 3.99 L Hgb 12.0 Hct 35.5 MCV 89.1 MCH 30.1 MCHC 33.8 RDW 16.9 H Plt Count 246 MPV 8.3 Sodium 140 Potassium 4.5 Chloride 104 Carbon Dioxide 30 Anion Gap 6 L BUN 18 Creatinine 0.7 Creat Clearance w eGFR 119.37 Random Glucose 111 H Calcium 8.2 L Total Bilirubin 0.2 AST 17 ALT 13 Alkaline Phosphatase 80 Total Protein 7.2 Albumin 3.4 RPR Titer Nonreactive Labs reviewed Assessment: 11/18/18 16:02 Withdrawal symptoms Plan: Continue detox Encouraged PO water intake Neurontin increased to 300mg PO TID
[2018-11-18] MEDS: hydrOXYzine PAMOATE 50 MG CAPSULE (FP) PO PRN (20:36)
[2018-11-18] MEDS: cloNIDine HCL 0.1 MG TABLET PO PRN (20:36)
[2018-11-18] MEDS: QUEtiapine FUMARATE 50 MG TABLET PO SCH (22:15)
[2018-11-18] MEDS: THIAMINE HCL 100 MG TABLET (FP) PO SCH (22:15)
[2018-11-19] MEDS: METHADONE HCL 40 MG DISPERSABLE TABLET PO SCH (05:20)
[2018-11-19] MEDS: GABAPENTIN 300 MG CAPSULE (FP) PO SCH (05:21)
[2018-11-19 09:46] VITALS: BP 128/78; PULSE 101; TEMP 98.6
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
== END 2018-11-19 09:12 | disposition home or self-care (01) | DRG 773 ==
LOC: YASAS 13:52 → Y6N 18:55
PROVIDERS: ADMIT Surgery; ATTEND Surgery
PROC: HZ2ZZZZ Detoxification Services for Substance Abuse Treatment (ICD-10-PCS; principal; 2018-11-15)
DX: F13.230 Sedative, hypnotic or anxiolytic dependence with withdrawal, uncomplicated (principal); F11.20 Opioid dependence, uncomplicated; F17.213 Nicotine dependence, cigarettes, with withdrawal; F19.282 Other psychoactive substance dependence with psychoactive substance-induced sleep disorder; F41.8 Other specified anxiety disorders; F32.9 Major depressive disorder, single episode, unspecified; K21.9 Gastro-esophageal reflux disease without esophagitis; Z86.69 Personal history of other diseases of the nervous system and sense organs; Z86.19 Personal history of other infectious and parasitic diseases
CPT/HCPCS: 36415; 80053; 85027; 86593; J0735

== ENCOUNTER 2019-01-03 10:13 | Inpatient (IN) | payer OTHER ==
[2019-01-03 12:10] VITALS: BMI 34.3
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
[2019-01-03] MEDS ORDERED: MAGNESIUM CITRATE 300 ML BOTTLE PO PRN (13:12)
[2019-01-03] MEDS ORDERED: IBUPROFEN 400 MG TABLET (FP) PO PRN (13:12)
[2019-01-03] MEDS ORDERED: MAG HYDROX/AL HYDROX/SIMETH 30 ML UNIT-DOSE CUP PO PRN (13:12)
[2019-01-03] MEDS ORDERED: BISMUTH SUBSALICYLATE 262 MG/15 ML BTL PO PRN (13:12)
[2019-01-03] MEDS ORDERED: MENTHOL/PHENOL 1 EACH UD MM PRN (13:12)
[2019-01-03] MEDS ORDERED: MAGNESIUM HYDROX 2400MG/30ML ORAL SUSPENSION 30 ML CUP PO PRN (13:12)
[2019-01-03] MEDS ORDERED: ACETAMINOPHEN 325 MG TABLET (FP) PO PRN ×2 (13:12)
[2019-01-03] MEDS: chlordiazePOXIDE HCL 25 MG CAPSULE PO PRN (16:50)
[2019-01-03 17:45] LABS: HEMATOCRIT 34.5 % (35.4-49); HEMOGLOBIN 11.2 GM/dL (11.7-16.9); MCH 29.3 pg (25.7-33.7); MCHC 32.3 g/dl (32.0-35.9); MEAN CELL VOLUME 90.7 fl (80-96); MEAN PLT VOLUME 8.3 fl (7.5-11.1); PLATELET COUNT 282 K/MM3 (134-434); RBC 3.81 M/mm3 (4.00-5.60); RDW 15.9 % (11.9-15.9); WHITE BLOOD COUNT 4.6 K/mm3 (4.0-10.0)
[2019-01-03 17:57] LABS: ALBUMIN 3.4 g/dl (3.4-5.0); BILIRUBIN,TOTAL 0.2 mg/dL (0.2-1); CALCIUM 8.5 mg/dL (8.5-10.1); CREATININE 0.8 mg/dL (0.55-1.3); POTASSIUM 4.6 mmol/L (3.5-5.1)
[2019-01-03] MEDS: THIAMINE HCL 100 MG TABLET (FP) PO SCH (22:43)
[2019-01-03] MEDS: chlordiazePOXIDE HCL 25 MG CAPSULE PO SCH (22:44)
[2019-01-03] MEDS: MELATONIN 5 MG TABLETS PO PRN (22:45)
[2019-01-04] MEDS: chlordiazePOXIDE HCL 25 MG CAPSULE PO SCH ×4 (04:08→22:09)
[2019-01-04] MEDS: METHADONE HCL 40 MG DISPERSABLE TABLET PO SCH (10:08)
[2019-01-04] MEDS: PRENATAL VITAMINS W/ FOLIC ACID TABLET (FP) PO SCH (10:08)
[2019-01-04] MEDS ORDERED: NICOTINE POLACRILEX 4 MG GUM BUC PRN (10:16)
[2019-01-04] MEDS: chlordiazePOXIDE HCL 25 MG CAPSULE PO PRN ×2 (12:15→23:11)
[2019-01-04] MEDS: NICOTINE 21 MG/24 HOURS TOPICAL PATCH TD SCH (12:15)
--- NOTE | 2019-01-04 16:22 | PN ---
[facility] CIWA - CIWA Score Nausea/Vomitin-No Nausea/No Vomiting Muscle Tremors: 2 Anxiety: 4-Mod. Anxious/Guarded Agitation: 4-Moderately Restless Paroxysmal Sweats: 3 Orientation: 0-Oriented Tacttile Disturbances: 0-None Auditory Disturbances: 0-None Visual Disturbances: 2-Mild Sensitivity Headache: 0-None Present CIWA-Ar Total Score: 15 BHS Progress Note (SOAP) Subjective: Anxious, Restless, Sweating, Tremors, Poor Appetite. Objective: PATIENT A & O X 2 (UNCERTAIN ABOUT CURRENT DAY / DATE). PATIENT OBSERVED AMBULATING ON UNIT UNASSISTED. IN NO ACUTE DISTRESS. 01/04/19 16:20 Vital Signs Temperature 97.0 F L 01/04/19 13:53 Pulse Rate 60 01/04/19 13:53 Respiratory Rate 16 01/04/19 13:53 Blood Pressure 124/72 01/04/19 13:53 O2 Sat by Pulse Oximetry (%) Laboratory Tests 01/03/19 01/03/19 01/03/19 13:35 13:35 13:35 WBC 4.6 RBC 3.81 L Hgb 11.2 L Hct 34.5 L MCV 90.7 MCH 29.3 MCHC 32.3 RDW 15.9 Plt Count 282 MPV 8.3 Sodium 140 Potassium 4.6 Chloride 105 Carbon Dioxide 30 Anion Gap 4 L BUN 18 Creatinine 0.8 Est GFR (CKD-EPI)AfAm 120.72 Est GFR (CKD-EPI)NonAf 104.16 Random Glucose 76 Calcium 8.5 Total Bilirubin 0.2 AST 26 ALT 13 Alkaline Phosphatase 60 Total Protein 7.0 Albumin 3.4 RPR Titer Nonreactive LABS NOTED. Assessment: 01/04/19 16:21 WITHDRAWAL SYMPTOMS. ANEMIA. 01/04/19 16:21 Plan: CONTINUE DETOX. INCREASE DAILY PO FLUID / WATER INTAKE. PATIENT IS CURRENTLY RECEIVING DAILY MVI CONTAINING B VITAMINS AND IRON WHILE ADMITTED FOR DETOX.
[2019-01-04] MEDS: hydrOXYzine PAMOATE 25 MG CAPSULE (FP) PO PRN (17:16)
[2019-01-04] MEDS: THIAMINE HCL 100 MG TABLET (FP) PO SCH (22:09)
[2019-01-05] MEDS: chlordiazePOXIDE HCL 25 MG CAPSULE PO PRN (03:08)
[2019-01-05] MEDS: chlordiazePOXIDE HCL 25 MG CAPSULE PO SCH ×3 (05:12→18:10)
[2019-01-05] MEDS: METHADONE HCL 40 MG DISPERSABLE TABLET PO SCH (05:12)
[2019-01-05] MEDS: PRENATAL VITAMINS W/ FOLIC ACID TABLET (FP) PO SCH (10:18)
[2019-01-05] MEDS: NICOTINE 21 MG/24 HOURS TOPICAL PATCH TD SCH (10:19)
[2019-01-05] MEDS: GABAPENTIN 300 MG CAPSULE (FP) PO SCH ×2 (14:56→22:07)
--- NOTE | 2019-01-05 17:44 | PN ---
[facility] CIWA - CIWA Score Nausea/Vomitin-No Nausea/No Vomiting Muscle Tremors: None Anxiety: 4-Mod. Anxious/Guarded Agitation: 2 Paroxysmal Sweats: 2 Orientation: 0-Oriented Tacttile Disturbances: 1-Very Mild Itch/Numbness Auditory Disturbances: 1-Very Mild Visual Disturbances: 2-Mild Sensitivity Headache: 0-None Present CIWA-Ar Total Score: 12 S Progress Note (SOAP) Subjective: Anxious, Restless, Tremors, Interrupted sleep, Poor Appetite. Objective: PATIENT A & O X 3, OBSERVED AMBULATING ON UNIT UNASSISTED. IN NO ACUTE DISTRESS. 01/05/19 17:42 Vital Signs Temperature 97.4 F L 01/05/19 16:01 Pulse Rate 56 L 01/05/19 16:01 Respiratory Rate 18 01/05/19 16:01 Blood Pressure 111/67 01/05/19 16:01 O2 Sat by Pulse Oximetry (%) Laboratory Tests 01/03/19 01/03/19 01/03/19 13:35 13:35 13:35 WBC 4.6 RBC 3.81 L Hgb 11.2 L Hct 34.5 L MCV 90.7 MCH 29.3 MCHC 32.3 RDW 15.9 Plt Count 282 MPV 8.3 Sodium 140 Potassium 4.6 Chloride 105 Carbon Dioxide 30 Anion Gap 4 L BUN 18 Creatinine 0.8 Est GFR (CKD-EPI)AfAm 120.72 Est GFR (CKD-EPI)NonAf 104.16 Random Glucose 76 Calcium 8.5 Total Bilirubin 0.2 AST 26 ALT 13 Alkaline Phosphatase 60 Total Protein 7.0 Albumin 3.4 RPR Titer Nonreactive LABS NOTED. PATIENT HAS BEEN ANEMIC ON PREVIOUS ADMISSIONS. 01/05/19 17:43 Assessment: 01/05/19 17:42 WITHDRAWAL SYMPTOMS. Plan: CONTINUE DETOX. INCREASE DAILY PO FLUID INTAKE.
[2019-01-05] MEDS: THIAMINE HCL 100 MG TABLET (FP) PO SCH (22:07)
[2019-01-05] MEDS: MELATONIN 5 MG TABLETS PO PRN (22:07)
[2019-01-05] MEDS: chlordiazePOXIDE HCL 10 MG CAPSULE PO SCH (22:07)
[2019-01-05] MEDS ORDERED: chlordiazePOXIDE HCL 10 MG CAPSULE PO PRN (23:00)
[2019-01-06] MEDS: METHADONE HCL 40 MG DISPERSABLE TABLET PO SCH (05:45)
[2019-01-06] MEDS: GABAPENTIN 300 MG CAPSULE (FP) PO SCH ×3 (05:45→22:45)
[2019-01-06] MEDS: chlordiazePOXIDE HCL 10 MG CAPSULE PO SCH ×4 (05:45→22:45)
[2019-01-06] MEDS: NICOTINE 21 MG/24 HOURS TOPICAL PATCH TD SCH (10:19)
[2019-01-06] MEDS: PRENATAL VITAMINS W/ FOLIC ACID TABLET (FP) PO SCH (10:20)
--- NOTE | 2019-01-06 15:28 | PN ---
[facility] CIWA - CIWA Score Nausea/Vomitin-Mild Nausea/No Vomiting Muscle Tremors: 2 Anxiety: 2 Agitation: 2 Paroxysmal Sweats: 1-Minimal Palms Moist Orientation: 0-Oriented Tacttile Disturbances: 0-None Auditory Disturbances: 0-None Visual Disturbances: 0-None Headache: 0-None Present CIWA-Ar Total Score: 8 [facility] Progress Note (SOAP) Subjective: feeling better today discuss aftercare with staff wants to return to methadone program and attend community self support meeting Objective: 01/06/19 15:30 Vital Signs Temperature 98.6 F 01/06/19 13:42 Pulse Rate 74 01/06/19 13:42 Respiratory Rate 18 01/06/19 13:42 Blood Pressure 126/80 01/06/19 13:42 O2 Sat by Pulse Oximetry (%) Laboratory Last Values WBC 4.6 K/mm3 (4.0-10.0) 01/03/19 13:35 RBC 3.81 M/mm3 (4.00-5.60) L 01/03/19 13:35 Hgb 11.2 GM/dL (11.7-16.9) L 01/03/19 13:35 Hct 34.5 % (35.4-49) L 01/03/19 13:35 MCV 90.7 fl (80-96) 01/03/19 13:35 MCH 29.3 pg (25.7-33.7) 01/03/19 13:35 MCHC 32.3 g/dl (32.0-35.9) 01/03/19 13:35 RDW 15.9 % (11.9-15.9) 01/03/19 13:35 Plt Count 282 K/MM3 (134-434) 01/03/19 13:35 MPV 8.3 fl (7.5-11.1) 01/03/19 13:35 Sodium 140 mmol/L (136-145) 01/03/19 13:35 Potassium 4.6 mmol/L (3.5-5.1) 01/03/19 13:35 Chloride 105 mmol/L (98-107) 01/03/19 13:35 Carbon Dioxide 30 mmol/L (21-32) 01/03/19 13:35 Anion Gap 4 MMOL/L (8-16) L 01/03/19 13:35 BUN 18 mg/dL (7-18) 01/03/19 13:35 Creatinine 0.8 mg/dL (0.55-1.3) 01/03/19 13:35 Est GFR (CKD-EPI)AfAm 120.72 01/03/19 13:35 Est GFR (CKD-EPI)NonAf 104.16 01/03/19 13:35 Random Glucose 76 mg/dL (74-106) 01/03/19 13:35 Calcium 8.5 mg/dL (8.5-10.1) 01/03/19 13:35 Total Bilirubin 0.2 mg/dL (0.2-1) 01/03/19 13:35 AST 26 U/L (15-37) 01/03/19 13:35 ALT 13 U/L (13-61) 01/03/19 13:35 Alkaline Phosphatase 60 U/L (45-117) 01/03/19 13:35 Total Protein 7.0 g/dl (6.4-8.2) 01/03/19 13:35 Albumin 3.4 g/dl (3.4-5.0) 01/03/19 13:35 RPR Titer Nonreactive (NONREACTIVE) 01/03/19 13:35 lab noted Assessment: 01/06/19 15:31 withdrawal sx Plan: continue detox
[2019-01-06] MEDS: MELATONIN 5 MG TABLETS PO PRN (22:45)
[2019-01-06] MEDS: THIAMINE HCL 100 MG TABLET (FP) PO SCH (22:46)
[2019-01-07] MEDS: hydrOXYzine PAMOATE 25 MG CAPSULE (FP) PO PRN (02:30)
[2019-01-07] MEDS: METHADONE HCL 40 MG DISPERSABLE TABLET PO SCH (05:22)
[2019-01-07] MEDS: GABAPENTIN 300 MG CAPSULE (FP) PO SCH (05:22)
[2019-01-07 09:20] VITALS: BP 126/77; PULSE 84; TEMP 96.7
--- NOTE | 2019-01-07 09:37 | DS ---
[facility] Detox Discharge Summary Admission Date: 01/03/19 Discharge Date: 01/07/19 - History Present History: Sedative Dependence Additional Comments: 48 years old male admitted on 01/03/19 for benzo withdrawal stabilization completed detox regimen aftercare [facility] Pertinent Past History: bring in medication list and lab report to aftercare appointment patient developed acute vomiting feeling weak can not tolerate food nor fluid this morning abdomen soft round + hyperactive bowel sound information provided to ER Dr. Degroot proposition: patient completed benzo detox regimen may return to methadone maintenance program and/or [facility] aftercare when medically cleared by the ER - Physical Exam Results Vital Signs: Vital Signs Temperature 96.7 F L 01/07/19 09:19 Pulse Rate 84 01/07/19 09:19 Respiratory Rate 18 01/07/19 09:19 Blood Pressure 126/77 01/07/19 09:19 O2 Sat by Pulse Oximetry (%) Pertinent Admission Physical Exam Findings: alcohol withdrawal sx Laboratory Last Values WBC 4.6 K/mm3 (4.0-10.0) 01/03/19 13:35 RBC 3.81 M/mm3 (4.00-5.60) L 01/03/19 13:35 Hgb 11.2 GM/dL (11.7-16.9) L 01/03/19 13:35 Hct 34.5 % (35.4-49) L 01/03/19 13:35 MCV 90.7 fl (80-96) 01/03/19 13:35 MCH 29.3 pg (25.7-33.7) 01/03/19 13:35 MCHC 32.3 g/dl (32.0-35.9) 01/03/19 13:35 RDW 15.9 % (11.9-15.9) 01/03/19 13:35 Plt Count 282 K/MM3 (134-434) 01/03/19 13:35 MPV 8.3 fl (7.5-11.1) 01/03/19 13:35 Sodium 140 mmol/L (136-145) 01/03/19 13:35 Potassium 4.6 mmol/L (3.5-5.1) 01/03/19 13:35 Chloride 105 mmol/L (98-107) 01/03/19 13:35 Carbon Dioxide 30 mmol/L (21-32) 01/03/19 13:35 Anion Gap 4 MMOL/L (8-16) L 01/03/19 13:35 BUN 18 mg/dL (7-18) 01/03/19 13:35 Creatinine 0.8 mg/dL (0.55-1.3) 01/03/19 13:35 Est GFR (CKD-EPI)AfAm 120.72 01/03/19 13:35 Est GFR (CKD-EPI)NonAf 104.16 01/03/19 13:35 Random Glucose 76 mg/dL (74-106) 01/03/19 13:35 Calcium 8.5 mg/dL (8.5-10.1) 01/03/19 13:35 Total Bilirubin 0.2 mg/dL (0.2-1) 01/03/19 13:35 AST 26 U/L (15-37) 01/03/19 13:35 ALT 13 U/L (13-61) 01/03/19 13:35 Alkaline Phosphatase 60 U/L (45-117) 01/03/19 13:35 Total Protein 7.0 g/dl (6.4-8.2) 01/03/19 13:35 Albumin 3.4 g/dl (3.4-5.0) 01/03/19 13:35 RPR Titer Nonreactive (NONREACTIVE) 01/03/19 13:35 lab noted - Treatment Hospital Course: Detox Protocol Followed, Detoxed Safely, Responded well, Discharged Condition Good, Rehab Referral Accepted Patient has Accepted a Rehab Referral to: [facility] - Medication Discharge Medications: Ambulatory Orders Famotidine [Pepcid -] 20 mg PO DAILY #30 tablet 07/04/18 Gabapentin 600 mg PO TID 01/05/19 Ondansetron [Zofran Odt -] 4 mg SL TID #4 od.tablet 01/07/19 - Diagnosis (1) Sedative hypnotic or anxiolytic dependence Status: Acute (2) GERD (gastroesophageal reflux disease) Status: Chronic Qualifiers: Esophagitis presence: without esophagitis Qualified Code(s): K21.9 - Gastro -esophageal reflux disease without esophagitis (3) Nicotine dependence Status: Acute Qualifiers: Nicotine product type: cigarettes Substance use status: in withdrawal Qualified Code(s): F17.213 - Nicotine dependence, cigarettes, with withdrawal (4) PPD positive Status: Resolved (5) Uncomplicated sedative, hypnotic or anxiolytic withdrawal Status: Acute (6) Methadone maintenance therapy patient Status: Chronic - AMA Did Patient Leave Against Medical Advice: No
[2019-01-07] MEDS: PRENATAL VITAMINS W/ FOLIC ACID TABLET (FP) PO SCH (11:11)
[2019-01-07] MEDS: NICOTINE 21 MG/24 HOURS TOPICAL PATCH TD SCH (11:11)
[2019-01-07] MEDS: chlordiazePOXIDE HCL 10 MG CAPSULE PO SCH (11:12)
== END 2019-01-07 10:15 | disposition short-term general hospital (02) | DRG 773 ==
LOC: YASAS 10:13 → Y3N 13:44
PROVIDERS: ADMIT Surgery; ATTEND Surgery
PROC: HZ2ZZZZ Detoxification Services for Substance Abuse Treatment (ICD-10-PCS; principal; 2019-01-03)
DX: F13.230 Sedative, hypnotic or anxiolytic dependence with withdrawal, uncomplicated (principal); F11.20 Opioid dependence, uncomplicated; F17.213 Nicotine dependence, cigarettes, with withdrawal; K21.9 Gastro-esophageal reflux disease without esophagitis; R76.11 Nonspecific reaction to tuberculin skin test without active tuberculosis; D64.9 Anemia, unspecified; R11.10 Vomiting, unspecified; R53.1 Weakness; Z87.438 Personal history of other diseases of male genital organs; Z86.69 Personal history of other diseases of the nervous system and sense organs
CPT/HCPCS: 36415; 80053; 85027; 86593

== ENCOUNTER 2019-01-07 10:21 | Emergency (ER) | payer OTHER ==
[2019-01-07 10:53] VITALS: BP 129/95; PULSE 90; TEMP 100.6; BMI 33.4
--- NOTE | 2019-01-07 12:21 | PDOC ---
History of Present Illness - General Chief Complaint: Pain Stated Complaint: ABD PAIN Time Seen by Provider: 01/07/19 12:21 History Source: Patient Exam Limitations: No Limitations - History of Present Illness Initial Comments: 01/07/19 12:41 48 year old male with PMH GERD, Xanax abuse, Methadone use, carpal tunnel presented to ED for generalized abdominal pain, nausea, vomiting, diarrhea since 0800 today. Pt stated he ate a lot of peanut butter last night, cookies, steak and rice. Pt stated his vomit was peanut butter colored. Pt stated his diarrhea was loose and watery, denied blood in stool or vomit. Pt admitted to fever, chills, sweats. Pt is currently at [facility] for Xanax detox, was planning to be discharged today. Pt denied ETOH use. Allergies: Penicillin Past History - Past Medical History Allergies/Adverse Reactions: Allergies Allergy/AdvReac Type Severity Reaction Status Date / Time Penicillins Allergy Verified 01/07/19 10:31 Home Medications: Ambulatory Orders Famotidine [Pepcid -] 20 mg PO DAILY #30 tablet 07/04/18 Gabapentin 600 mg PO TID 01/05/19 Ondansetron [Zofran Odt -] 4 mg SL TID #4 od.tablet 01/07/19 Anemia: No Asthma: No Cancer: No Cardiac Disorders: No CVA: No COPD: No CHF: No Dementia: No Diabetes: No GI Disorders: Yes (Acid reflux - uses pepcid/zantac otc) Disorders: No HTN: No Hypercholesterolemia: No Kidney Stones: No Liver Disease: No Seizures: Yes (last seizure a yr ago r/t withdrawal) Thyroid Disease: No - Surgical History Abdominal Surgery: No Appendectomy: No Cardiac Surgery: No Cholecystectomy: Yes (2004) Lung Surgery: No Neurologic Surgery: No - Reproductive History Testicular Surgery: No - Suicide/Smoking/Psychosocial Hx Smoking History: Current every day smoker Have you smoked in the past 12 months: Yes Number of Cigarettes Smoked Daily: 10 Information on smoking cessation initiated: No 'Breaking Loose' booklet given: 06/11/18 Hx Alcohol Use: No Drug/Substance Use Hx: No Substance Use Type: Tranquilizers (Started using benzodiazepineat age 28, consumes eiter 8 mg of xanax or 20 mg of klonopin daily. Last used xanx on 06/11 & klonopin on 06/09/18) Hx Substance Use Treatment: Yes Review of Systems - Review of Systems Able to Perform ROS?: Yes Comments:: 01/07/19 12:43 General: admitted to fever, chills, generalized weakness. HEENT: denied sore throat, rhinorrhea, ear pain. Heart: denied chest pain, palpitations, syncope, diaphoresis. Respiratory: denied shortness of breath, cough, sputum production, hemoptysis. Abdomen: admitted to abdominal pain, nausea, vomiting, diarrhea. denied constipation, blood in stool. : denied dysuria, increased urinary frequency, hematuria, urinary incontinence , flank pain. Back: denied back pain. Musculoskeletal: denied joint pain, muscle pain, joint swelling. Neurological: denied headache, dizziness, numbness, tingling, weakness. Skin: denied rash, laceration, abrasion. *Physical Exam - Vital Signs Last Vital Signs Temp Pulse Resp BP Pulse Ox 100.6 F H 90 16 129/95 100 01/07/19 10:21 01/07/19 10:21 01/07/19 10:21 01/07/19 10:21 01/07/19 10:21 - Physical Exam Comments: 01/07/19 12:43 Constitutional: Well-nourished, Well-developed, appearing stated age. appears dehydrated. HEENT: head is normocephalic, atraumatic. EOMI. PERRLA. dry mucous membranes. Neck: supple. Full ROM. Heart: regular rhythm. no murmurs, rubs or gallops. Lungs: clear to auscultation bilaterally. no crackles, rhonchi or wheezing. no stridor. Abdomen: soft, flat. tenderness to palpation of epigastrium. hyperactive bowel sounds. no rebound, guarding, masses. [place] nontender. murphys negative. Extremities: peripheral pulses intact. no lower extremity edema. Neurological: CN 2-12 grossly intact. moves all four extremities. Psych: awake, alert, oriented x3. follows commands. answers questions appropriately. ED Treatment Course - LABORATORY CBC & Chemistry Diagram: 01/07/19 12:39 01/07/19 12:38 Medical Decision Making - Medical Decision Making 01/07/19 12:44 48 year old male with above PMH presented to ED for generalized abdominal pain, nausea, vomiting, diarrhea, fever. Initial Vital Signs Temp Pulse Resp BP Pulse Ox 100.6 F H 90 16 129/95 100 01/07/19 10:21 01/07/19 10:21 01/07/19 10:21 01/07/19 10:21 01/07/19 10:21 Febrile. No tachycardia. No tachypnea. Mild hypertension. No hypoxia on room air. Labs ordered: CBC, CMP, lipase Medications ordered: pepcid, maalox, zofran, tylenol, normal saline bolus 1000 cc Imaging ordered: none 01/07/19 13:04 CBC WBC 9.9 K/mm3 (4.0-10.0) 01/07/19 12:39 RBC 4.95 M/mm3 (4.00-5.60) 01/07/19 12:39 Hgb 14.4 GM/dL (11.7-16.9) 01/07/19 12:39 Hct 43.9 % (35.4-49) D 01/07/19 12:39 MCV 88.6 fl (80-96) 01/07/19 12:39 MCH 29.1 pg (25.7-33.7) 01/07/19 12:39 MCHC 32.9 g/dl (32.0-35.9) 01/07/19 12:39 RDW 15.8 % (11.9-15.9) 01/07/19 12:39 Plt Count 305 K/MM3 (134-434) 01/07/19 12:39 MPV 8.0 fl (7.5-11.1) 01/07/19 12:39 Absolute Neuts (auto) 8.6 K/mm3 (1.5-8.0) H 01/07/19 12:39 Neutrophils % 86.6 % (42.8-82.8) H 01/07/19 12:39 Lymphocytes % 4.1 % (8-40) L 01/07/19 12:39 Monocytes % 8.2 % (3.8-10.2) 01/07/19 12:39 Eosinophils % 0.9 % (0-4.5) 01/07/19 12:39 Basophils % 0.2 % (0-2.0) 01/07/19 12:39 Nucleated RBC % 0 % (0-0) 01/07/19 12:39 No leukocytosis Mild left shift No anemia No thrombocytosis. 01/07/19 13:31 CMP Sodium 136 mmol/L (136-145) 01/07/19 12:38 Potassium 5.3 mmol/L (3.5-5.1) H 01/07/19 12:38 Chloride 103 mmol/L (98-107) 01/07/19 12:38 Carbon Dioxide 26 mmol/L (21-32) 01/07/19 12:38 Anion Gap 7 MMOL/L (8-16) L 01/07/19 12:38 BUN 26 mg/dL (7-18) H 01/07/19 12:38 Creatinine 0.8 mg/dL (0.55-1.3) 01/07/19 12:38 Est GFR (CKD-EPI)AfAm 120.72 01/07/19 12:38 Est GFR (CKD-EPI)NonAf 104.16 01/07/19 12:38 Random Glucose 116 mg/dL (74-106) H 01/07/19 12:38 Calcium 9.1 mg/dL (8.5-10.1) 01/07/19 12:38 Total Bilirubin 0.4 mg/dL (0.2-1) 01/07/19 12:38 AST 30 U/L (15-37) 01/07/19 12:38 ALT 18 U/L (13-61) 01/07/19 12:38 Alkaline Phosphatase 69 U/L (45-117) 01/07/19 12:38 Total Protein 8.2 g/dl (6.4-8.2) 01/07/19 12:38 Albumin 3.8 g/dl (3.4-5.0) 01/07/19 12:38 Lipase 64 U/L (73-393) L 01/07/19 12:38 Mild hyperkalemia. -Pt is receiving IV fluids No SVETA. No transaminitis. Normal lipase. 01/07/19 15:00 Pt reported improvement of symptoms, requesting to be discharged. Pt given PO challenge. 01/07/19 15:23 Pt tolerated PO challenge. Pt discharged. Discharge medications: Zofran *DC/Admit/Observation/Transfer Diagnosis at time of Disposition: Nausea vomiting and diarrhea - Discharge Dispostion Condition at time of disposition: Improved Decision to Admit order: No - Prescriptions Prescriptions: Ondansetron [Zofran Odt -] 4 mg SL TID #4 od.tablet - Referrals - Patient Instructions Additional Instructions: You were seen today for nausea, vomiting, diarrhea, abdominal pain. Your lab work was normal. Follow up with your primary care doctor in 2-3 days. Your care is not complete until you follow up. Bring all paperwork given to you today to your appointment. Take Tylenol over the counter for your pain/fever, take as advised on label. Drink lots of clear liquids, like gatorade or pedialyte, to stay hydrated. I have sent a prescription to your pharmacy for Zofran, an anti-nausea medication, take as advised on label. Return to the Emergency Department for increasing pain despite tylenol use, fever>104F with tylenol use, fever>5 days, vomiting despite zofran use, vomiting blood, dark tarry stools, blood in stools, chest pain, shortness of breath, or any other new, worsening or concerning symptoms. - Post Discharge Activity Forms/Work/School Notes: Back to Work
[2019-01-07] MEDS ORDERED: ONDANSETRON 4 MG/2 ML VIAL IVPUSH ONE (12:37)
[2019-01-07] MEDS ORDERED: SODIUM CHLORIDE 1,000 ML IV STA (12:37)
[2019-01-07] MEDS ORDERED: FAMOTIDINE 20 MG/50 ML IVPB 20 MG/50 ML MG IVPB ONE ×2 (12:37→12:51)
[2019-01-07] MEDS ORDERED: MAG HYDROX/AL HYDROX/SIMETH 30 ML UNIT-DOSE CUP PO ONE (12:38)
[2019-01-07] MEDS ORDERED: ACETAMINOPHEN 1000 MG/100 ML VIAL (NON FORMULARY) IVPB ONE (12:39)
[2019-01-07 12:46] LABS: BASO % 0.2 % (0-2.0); EOS % 0.9 % (0-4.5); HEMATOCRIT 43.9 % (35.4-49); HEMOGLOBIN 14.4 GM/dL (11.7-16.9); LYMPH % 4.1 % (8-40); MCH 29.1 pg (25.7-33.7); MCHC 32.9 g/dl (32.0-35.9); MEAN CELL VOLUME 88.6 fl (80-96); MONO % 8.2 % (3.8-10.2); NEUT % 86.6 % (42.8-82.8); PLATELET COUNT 305 K/MM3 (134-434); RBC 4.95 M/mm3 (4.00-5.60); RDW 15.8 % (11.9-15.9); WHITE BLOOD COUNT 9.9 K/mm3 (4.0-10.0)
[2019-01-07] MEDS ORDERED: MAG HYDROX/AL HYDROX/SIMETH 30 ML UNIT-DOSE CUP ONE (12:51)
[2019-01-07] MEDS ORDERED: ONDANSETRON 4 MG/2 ML VIAL ONE (12:51)
[2019-01-07 13:12] LABS: ALBUMIN 3.8 g/dl (3.4-5.0); BILIRUBIN,TOTAL 0.4 mg/dL (0.2-1); CALCIUM 9.1 mg/dL (8.5-10.1); CREATININE 0.8 mg/dL (0.55-1.3); POTASSIUM 5.3 mmol/L (3.5-5.1); TOT PROT 8.2 g/dl (6.4-8.2)
[2019-01-07] MEDS ORDERED: ACETAMINOPHEN INJECTION 100 ML IVPB ONE (13:56)
--- NOTE | 2019-01-07 14:20 | PDOC ---
Documentation entered by Amarilis Patricio SCRIBE, acting as scribe for Priya Montgomery MD. Priya Montgomery MD: This documentation has been prepared by the bernieibe, Amarilis Patricio SCRIBE, under my direction and personally reviewed by me in its entirety. I confirm that the documentation accurately reflects all work, treatment, procedures, and medical decision making performed by me. Attending Attestation - Resident Resident Name: ThaiNatalie - ED Attending Attestation I have performed the following: I have examined & evaluated the patient, The case was reviewed & discussed with the resident, I agree w/resident's findings & plan, Exceptions are as noted - HPI HPI: 01/07/19 13:50 The patient is a 48 year old male with past medical history of xanax abuse, GERD , on Methadone, who was sent from [facility] for nausea, vomiting, and diarrhea since this morning. Patient states last night he ate a lot of peanut butter and reports his emesis is peanut butter colored. Reports associated crampy abdominal pain. Reports associated fever, chills and diaphoresis, but denies any cough, SOB, chest pain, or urinary complaints. - Physicial Exam PE: GENERAL: Awake, alert, and fully oriented, in no acute distress HEAD: No signs of trauma EYES: PERRLA, EOMI, sclera anicteric, conjunctiva clear ENT: Auricles normal inspection, hearing grossly normal, nares patent, oropharynx clear without exudates. Dry mucosa NECK: Normal ROM, supple, no lymphadenopathy, JVD, or masses LUNGS: Breath sounds equal, clear to auscultation bilaterally. No wheezes, and no crackles HEART: Regular rate and rhythm, normal S1 and S2, no murmurs, rubs or gallops ABDOMEN: Soft, nontender, +increased bowel sounds. No guarding, no rebound. No masses EXTREMITIES: Normal range of motion, no edema. No clubbing or cyanosis. No cords, erythema, or tenderness NEUROLOGICAL: Cranial nerves II through XII grossly intact. Normal speech. Motor and sensation intact SKIN: Warm, Dry, normal turgor, no rashes or lesions noted. - Medical Decision Making Pt with low grade fever, N/V. Denies abd pain. No signs of acute abdomen on exam. Will give IV fluids, GI cocktail. Likely DC home.
== END 2019-01-07 15:50 | disposition home or self-care (01) ==
LOC: JER 10:21
PROC: 3E033NZ Introduction of Analgesics, Hypnotics, Sedatives into Peripheral Vein, Percutaneous Approach (ICD-10-PCS; principal; 2019-01-07)
PROC: 3E033GC Introduction of Other Therapeutic Substance into Peripheral Vein, Percutaneous Approach (ICD-10-PCS; 2019-01-07)
PROC: 3E0337Z Introduction of Electrolytic and Water Balance Substance into Peripheral Vein, Percutaneous Approach (ICD-10-PCS; 2019-01-07)
DX: R11.2 Nausea with vomiting, unspecified (principal); R19.7 Diarrhea, unspecified; F17.210 Nicotine dependence, cigarettes, uncomplicated; K21.9 Gastro-esophageal reflux disease without esophagitis; F11.90 Opioid use, unspecified, uncomplicated; F13.21 Sedative, hypnotic or anxiolytic dependence, in remission
CPT/HCPCS: 36415; 80053; 83690; 85025; 99283-25; J0131; J7030

== ENCOUNTER 2019-06-29 11:54 | Inpatient (IN) | payer OTHER ==
[2019-06-29 13:16] VITALS: BMI 31.9
--- NOTE | 2019-06-29 14:20 | HP ---
"CIWA Score Nausea/Vomitin Muscle Tremors: 4-Moderate,w/Arms Extend Anxiety: 3 Agitation: 0-Normal Activity Paroxysmal Sweats: 1-Minimal Palms Moist Orientation: 2-Disoriented Date<2 days Tacttile Disturbances: 2-Mild Itch/Numbness/Burn Auditory Disturbances: 1-Very Mild Visual Disturbances: 0-None Headache: 1-Very Mild CIWA-Ar Total Score: 16 - Admission Criteria OASAS Guidelines: Admission for Medically Managed Detox: Requires at least one of the followin. CIWA greater than 12 2. Seizures within the past 24 hours 3. Delirium tremens within the past 24 hours 4. Hallucinations within the past 24 hours 5. Acute intervention needed for co occurring medical disorder 6. Acute intervention needed for co occurring psychiatric disorder 7. Severe withdrawal that cannot be handled at a lower level of care (continued vomiting, continued diarrhea, abnormal vital signs) requiring intravenous medication and/or fluids 8. Patient presents the following: CIWA greater than 12 Admission Criteria Met: Admission criteria met Admitting History and Physical - Admission History Source: Patient - Social History Usual Living Arrangement: Yes: With Spouse Admission ROS [facility] Chief Complaint: I want to get off the xanax, I'm getting of the methadone, I'm serious this time , I'm sick and tired of this life, this time is this time and it's not like last time, I'm serious Allergies/Adverse Reactions: Allergies Allergy/AdvReac Type Severity Reaction Status Date / Time Penicillins Allergy Verified 06/29/19 13:00 History of Present Illness: 49 yo gentleman here for detox from xanax. Does not drink alcohol. History of seizures - most recent 8 months ago. He is on a methadone program [facility] - (60mg) was dosed today, brought in take home bottle. Also with history of black outs, no overdose. States he lives with his family. Last time here in December 2018 for detox from benzodiazepine. We discussed importance of ongoing psych treatment. [facility] Search Terms: [email or web address] roberto, 1970 Search Date: 06/29/2019 02:16:51 PM The Drug Utilization Report below displays all of the controlled substance prescriptions, if any, that your patient has filled in the last twelve months. The information displayed on this report is compiled from pharmacy submissions to the Department, and accurately reflects the information as submitted by the pharmacies. This report was requested by: Felisha Kovacs | Reference #: [id number] There are no results for the search terms that you entered. Exam Limitations: Clinical Condition - Ebola screening Have you traveled outside of the country in the last 21 days: No (N) Have you had contact with anyone from an Ebola affected area: No Do you have a fever: No - Review of Systems Constitutional: Loss of Appetite, Malaise, Weakness EENT: reports: No Symptoms Reported Respiratory: reports: No Symptoms reported Cardiac: reports: Chest Tightness ('from my anxiety') GI: reports: Nausea, Poor Appetite, Poor Fluid Intake : reports: Frequency Musculoskeletal: reports: Joint Pain, Muscle Pain Integumentary: reports: Pruritus (due to withdrawal - scratching legs) Neuro: reports: Headache, Numbness, Tremors Endocrine: reports: No Symptoms Reported Hematology: reports: No Symptoms Reported Psychiatric: reports: Judgement Intact, Mood/Affect Appropiate, Anxious Other Systems: Reviewed and Negative Patient History - Patient Medical History Hx Anemia: No Hx Asthma: No Hx Chronic Obstructive Pulmonary Disease (COPD): No Hx Cancer: No Hx Cardiac Disorders: No Hx Congestive Heart Failure: No Hx Hypertension: No Hx Hypercholesterolemia: No Hx Pacemaker: No HX Cerebrovascular Accident: No Hx Seizures: Yes (seizure hx - last time october 2018) Hx Dementia: No Hx Diabetes: No Hx Gastrointestinal Disorders: Yes (gerd) Hx Liver Disease: No Hx Genitourinary Disorders: No Hx Sexually Transmitted Disorders: Yes (treated for chlymidia) Hx Renal Disease (ESRD): No Hx Thyroid Disease: No Hx Human Immunodeficiency Virus (HIV): No (07/2017) Hx Hepatitis C: No Hx Depression: Yes (with anxiety, never hospitalized) Hx Suicide Attempt: No (denies) Hx Bipolar Disorder: No Hx Schizophrenia: No - Patient Surgical History Past Surgical History: Yes Hx Neurologic Surgery: No Hx Cataract Extraction: No Hx Cardiac Surgery: No Hx Lung Surgery: No Hx Breast Surgery: No Hx Breast Biopsy: No Hx Abdominal Surgery: No Hx Appendectomy: No Hx Cholecystectomy: Yes (2004) Other Surgical History: right inguinal hernia x2 and left inguinal repair 2010; nose polyps removal Anesthesia Reaction: No - PPD History Previous Implant?: Yes Documented Results: Positive w/o proof (treated with INH 'twice') Implanted On Prior [facility] Admission?: No Results: CXR(-)06/14 PPD to be Administered?: No - Reproductive History Patient is a Female of Child Bearing Age (11 -55 yrs old): No - Smoking Cessation Smoking history: Current every day smoker Have you smoked in the past 12 months: Yes Aproximately how many cigarettes per day: 20 Hx Chewing Tobacco Use: No Initiated information on smoking cessation: Yes 'Breaking Loose' booklet given: 06/29/19 (give on floor) - Substance & Tx. History Hx Alcohol Use: No Hx Substance Use: Yes Substance Use Type: Marijuana, Tranquilizers Hx Substance Use Treatment: Yes (detox, rehab, [facility], [facility]) - Substances abused Alprazolam (Xanax) Substance route: Oral Frequency: 3-6 times per week Amount used: 14 mg three times per week ('it's hard to get it') Age of first use: 28 Date of last use: 06/29/19 Benzodiazepine (Klonopin) Substance route: Oral Frequency: 1-2 times per week Amount used: if no xanax, take whatever clonopin I can get - ten 2mg taken 06/27 Age of first use: 28 Date of last use: 06/27/19 Admission Physical Exam S - Vital Signs Vital Signs: Vital Signs - 24 hr 06/29/19 12:52 Temperature 97.0 F L Pulse Rate 52 L Respiratory 16 Rate Blood Pressure 99/65 - Physical General Appearance: Yes: Nourished, Appropriately Dressed, Moderate Distress, Tremorous, Irritable, Anxious HEENTM: Yes: EOMI, Hearing grossly Normal, Normocephalic, Normal Voice, Pharynx Normal, Other (upper and lower dentures) Respiratory: Yes: Normal Breath Sounds, No Respiratory Distress Neck: Yes: No masses,lesions,Nodules Breast: Yes: Breast Exam Deferred Cardiology: Yes: Regular Rhythm, Regular Rate Abdominal: Yes: Soft, Protuberent Genitourinary: Yes: Frequency Back: Yes: Normal Inspection Musculoskeletal: Yes: full range of Motion, Gait Steady, Back pain, Muscle Pain Extremities: Yes: Normal Inspection, Non-Tender, Tremors Neurological: Yes: Alert, Normal Mood/Affect, Normal Response, Numbness Integumentary: Yes: Normal Color, Warm, Other (some bleeding on lower extremities from scratching (states related to detoxing)) Lymphatic: Yes: Within Normal Limits - Diagnostic (1) Sedative, hypnotic or anxiolytic dependence, uncomplicated Current Visit: Yes Status: Acute (2) History of seizure Current Visit: Yes Status: Chronic (3) Nicotine dependence Current Visit: Yes Status: Chronic Qualifiers: Nicotine product type: cigarettes Substance use status: in withdrawal Qualified Code(s): F17.213 - Nicotine dependence, cigarettes, with withdrawal (4) GERD (gastroesophageal reflux disease) Current Visit: Yes Status: Chronic Qualifiers: Esophagitis presence: without esophagitis Qualified Code(s): K21.9 - Gastro -esophageal reflux disease without esophagitis (5) Hx of carpal tunnel syndrome Current Visit: Yes Status: Chronic (6) Methadone maintenance therapy patient Current Visit: Yes Status: Chronic (7) PPD positive, treated Current Visit: Yes Status: Chronic Cleared for Admission S - Detox or Rehab [facility] Level of Care: Medically Managed Detox Regimen/Protocol: Valium Breathalyzer - Breathalyzer Breathalyzer: 0 Urine Drug Screen - Test Device Lot number: [id number] Expiration date: 02/24/21 - Control Is test valid?: Yes - Results Drug screen NEGATIVE: No Urine drug screen results: THC-Marijuana, MTD-Methadone, BZO-Benzodiazepines Inpatient Rehab Admission - Rehab Decision to Admit Inpatient rehab admission?: No"
[2019-06-29] MEDS ORDERED: NICOTINE POLACRILEX 4 MG GUM BUC PRN (14:41)
[2019-06-29] MEDS ORDERED: MAGNESIUM HYDROX 2400MG/30ML ORAL SUSPENSION 30 ML CUP PO PRN (14:41)
[2019-06-29] MEDS ORDERED: METHOCARBAMOL 500 MG TABLET PO PRN (14:41)
[2019-06-29] MEDS ORDERED: MELATONIN 5 MG TABLETS PO PRN (14:41)
[2019-06-29] MEDS ORDERED: MAGNESIUM CITRATE 300 ML BOTTLE PO PRN (14:41)
[2019-06-29] MEDS ORDERED: MENTHOL/PHENOL 1 EACH UD MM PRN (14:41)
[2019-06-29] MEDS ORDERED: IBUPROFEN 400 MG TABLET (FP) PO PRN (14:41)
[2019-06-29] MEDS ORDERED: diazePAM 5 MG TABLET PO ONE (14:41)
[2019-06-29] MEDS ORDERED: MAG HYDROX/AL HYDROX/SIMETH 30 ML UNIT-DOSE CUP PO PRN (14:41)
[2019-06-29] MEDS ORDERED: BISMUTH SUBSALICYLATE 524 MG/30 ML UD PO PRN (14:41)
[2019-06-29] MEDS ORDERED: ACETAMINOPHEN 325 MG TABLET (FP) PO PRN ×2 (14:41)
[2019-06-29] MEDS ORDERED: hydrOXYzine PAMOATE 25 MG CAPSULE (FP) PO PRN (14:41)
[2019-06-29] MEDS: NICOTINE 21 MG/24 HOURS TOPICAL PATCH TD SCH (17:16)
[2019-06-29] MEDS: diazePAM 5 MG TABLET PO SCH (22:11)
[2019-06-29] MEDS: THIAMINE HCL 100 MG TABLET (FP) PO SCH (22:11)
[2019-06-30] MEDS: diazePAM 5 MG TABLET PO PRN ×3 (01:32→18:55)
[2019-06-30] MEDS: diazePAM 5 MG TABLET PO SCH ×3 (05:03→22:11)
[2019-06-30] MEDS ORDERED: METHADONE HCL 10 MG TABLET ONE (05:04)
[2019-06-30] MEDS ORDERED: METHADONE HCL 40 MG DISPERSABLE TABLET ONE (05:04)
[2019-06-30] MEDS ORDERED: METHADONE HCL 10 MG TABLET PO ONE (06:00)
[2019-06-30] MEDS ORDERED: METHADONE 40 MG, METHADONE 20 MG PO ONE (06:00)
[2019-06-30 09:22] LABS: HEMATOCRIT 32.6 % (35.4-49); HEMOGLOBIN 11.6 GM/dL (11.7-16.9); MCH 31.6 pg (25.7-33.7); MCHC 35.5 g/dl (32.0-35.9); MEAN CELL VOLUME 89.1 fl (80-96); MEAN PLT VOLUME 8.6 fl (7.5-11.1); PLATELET COUNT 232 K/MM3 (134-434); RBC 3.66 M/mm3 (4.00-5.60); RDW 15.3 % (11.9-15.9); WHITE BLOOD COUNT 4.1 K/mm3 (4.0-10.0)
[2019-06-30 09:37] LABS: ALBUMIN 3.3 g/dl (3.4-5.0); BILIRUBIN,TOTAL 0.6 mg/dL (0.2-1); BLOOD UREA NITROGEN 20.5 mg/dL (7-18); CALCIUM 8.2 mg/dL (8.5-10.1); CREATININE 0.7 mg/dL (0.55-1.3); TOT PROT 6.5 g/dl (6.4-8.2)
[2019-06-30] MEDS: PRENATAL VITAMINS W/ FOLIC ACID TABLET (FP) PO SCH (10:07)
[2019-06-30] MEDS: NICOTINE 21 MG/24 HOURS TOPICAL PATCH TD SCH (10:07)
--- NOTE | 2019-06-30 10:48 | PN ---
[facility] CIWA - CIWA Score Nausea/Vomitin-Mild Nausea/No Vomiting Muscle Tremors: 2 Anxiety: 4-Mod. Anxious/Guarded Agitation: 3 Paroxysmal Sweats: 2 Orientation: 0-Oriented Tacttile Disturbances: 0-None Auditory Disturbances: 0-None Visual Disturbances: 0-None Headache: 0-None Present CIWA-Ar Total Score: 12 S Progress Note (SOAP) Subjective: 49 years old male admitted on 06/29/19 for benzo withdrawal sx management treated with valium detox regimen patient tolerated well taking neurontin 600 mg po tid for "nerve pain last dose "Months" ago begin neutrontin 300 mg po tid Objective: 06/30/19 10:51 Vital Signs Temperature 96.8 F L 06/30/19 09:00 Pulse Rate 55 L 06/30/19 09:00 Respiratory Rate 18 06/30/19 09:00 Blood Pressure 100/50 L 06/30/19 09:00 O2 Sat by Pulse Oximetry (%) Laboratory Last Values WBC 4.1 K/mm3 (4.0-10.0) 06/30/19 07:50 RBC 3.66 M/mm3 (4.00-5.60) L 06/30/19 07:50 Hgb 11.6 GM/dL (11.7-16.9) L 06/30/19 07:50 Hct 32.6 % (35.4-49) L D 06/30/19 07:50 MCV 89.1 fl (80-96) 06/30/19 07:50 MCH 31.6 pg (25.7-33.7) 06/30/19 07:50 MCHC 35.5 g/dl (32.0-35.9) 06/30/19 07:50 RDW 15.3 % (11.9-15.9) 06/30/19 07:50 Plt Count 232 K/MM3 (134-434) D 06/30/19 07:50 MPV 8.6 fl (7.5-11.1) 06/30/19 07:50 Sodium 141 mmol/L (136-145) 06/30/19 07:50 Potassium 4.0 mmol/L (3.5-5.1) 06/30/19 07:50 Chloride 108 mmol/L (98-107) H 06/30/19 07:50 Carbon Dioxide 27 mmol/L (21-32) 06/30/19 07:50 Anion Gap 6 MMOL/L (8-16) L 06/30/19 07:50 BUN 20.5 mg/dL (7-18) H 06/30/19 07:50 Creatinine 0.7 mg/dL (0.55-1.3) 06/30/19 07:50 Est GFR (CKD-EPI)AfAm 126.64 06/30/19 07:50 Est GFR (CKD-EPI)NonAf 109.27 06/30/19 07:50 Random Glucose 97 mg/dL (74-106) 06/30/19 07:50 Calcium 8.2 mg/dL (8.5-10.1) L 06/30/19 07:50 Total Bilirubin 0.6 mg/dL (0.2-1) 06/30/19 07:50 AST 22 U/L (15-37) 06/30/19 07:50 ALT 13 U/L (13-61) 06/30/19 07:50 Alkaline Phosphatase 57 U/L (45-117) 06/30/19 07:50 Total Protein 6.5 g/dl (6.4-8.2) 06/30/19 07:50 Albumin 3.3 g/dl (3.4-5.0) L 06/30/19 07:50 lab noted Assessment: 06/30/19 10:51 benzo withdrawal sx Plan: continue valium detox regimen
[2019-06-30] MEDS ORDERED: GABAPENTIN 300 MG CAPSULE (FP) PO ONE (10:50)
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
[2019-06-30] MEDS ORDERED: MELATONIN 5 MG TABLETS PO PRN (11:11)
[2019-06-30] MEDS: GABAPENTIN 300 MG CAPSULE (FP) PO SCH ×2 (14:14→22:10)
[2019-06-30] MEDS ORDERED: GABAPENTIN 300 MG CAPSULE (FP) PO SCH (16:00)
[2019-06-30] MEDS: THIAMINE HCL 100 MG TABLET (FP) PO SCH (22:10)
[2019-07-01] MEDS: GABAPENTIN 300 MG CAPSULE (FP) PO SCH ×3 (05:09→22:09)
[2019-07-01] MEDS: diazePAM 5 MG TABLET PO SCH ×2 (05:10→17:08)
--- NOTE | 2019-07-01 09:56 | PN ---
S CIWA - CIWA Score Nausea/Vomitin-No Nausea/No Vomiting Muscle Tremors: 2 Anxiety: 3 Agitation: 2 Paroxysmal Sweats: No Perspiration Orientation: 0-Oriented Tacttile Disturbances: 0-None Auditory Disturbances: 0-None Visual Disturbances: 0-None Headache: 0-None Present CIWA-Ar Total Score: 7 [facility] Progress Note (SOAP) Subjective: 49 years old male admitted on 06/29/19 for benzo withdrawal sx management treated with valium detox regimen patient tolerated well methadone 60 mg po verified today due to lack of take home bottle verification patient will received methadone 60 mg po today Objective: 07/01/19 09:55 Vital Signs Temperature 97.1 F L 07/01/19 09:15 Pulse Rate 61 07/01/19 09:15 Respiratory Rate 18 07/01/19 09:15 Blood Pressure 101/61 07/01/19 09:15 O2 Sat by Pulse Oximetry (%) Laboratory Last Values WBC 4.1 K/mm3 (4.0-10.0) 06/30/19 07:50 RBC 3.66 M/mm3 (4.00-5.60) L 06/30/19 07:50 Hgb 11.6 GM/dL (11.7-16.9) L 06/30/19 07:50 Hct 32.6 % (35.4-49) L D 06/30/19 07:50 MCV 89.1 fl (80-96) 06/30/19 07:50 MCH 31.6 pg (25.7-33.7) 06/30/19 07:50 MCHC 35.5 g/dl (32.0-35.9) 06/30/19 07:50 RDW 15.3 % (11.9-15.9) 06/30/19 07:50 Plt Count 232 K/MM3 (134-434) D 06/30/19 07:50 MPV 8.6 fl (7.5-11.1) 06/30/19 07:50 Sodium 141 mmol/L (136-145) 06/30/19 07:50 Potassium 4.0 mmol/L (3.5-5.1) 06/30/19 07:50 Chloride 108 mmol/L (98-107) H 06/30/19 07:50 Carbon Dioxide 27 mmol/L (21-32) 06/30/19 07:50 Anion Gap 6 MMOL/L (8-16) L 06/30/19 07:50 BUN 20.5 mg/dL (7-18) H 06/30/19 07:50 Creatinine 0.7 mg/dL (0.55-1.3) 06/30/19 07:50 Est GFR (CKD-EPI)AfAm 126.64 06/30/19 07:50 Est GFR (CKD-EPI)NonAf 109.27 06/30/19 07:50 Random Glucose 97 mg/dL (74-106) 06/30/19 07:50 Calcium 8.2 mg/dL (8.5-10.1) L 06/30/19 07:50 Total Bilirubin 0.6 mg/dL (0.2-1) 06/30/19 07:50 AST 22 U/L (15-37) 06/30/19 07:50 ALT 13 U/L (13-61) 06/30/19 07:50 Alkaline Phosphatase 57 U/L (45-117) 06/30/19 07:50 Total Protein 6.5 g/dl (6.4-8.2) 06/30/19 07:50 Albumin 3.3 g/dl (3.4-5.0) L 06/30/19 07:50 RPR Titer Nonreactive (NONREACTIVE) 06/30/19 07:50 lab noted Assessment: 07/01/19 09:55 benzo withdrawal sx Plan: continue valium detox regimen
[2019-07-01] MEDS ORDERED: METHADONE 40 MG, METHADONE 20 MG PO ONE (10:00)
[2019-07-01] MEDS ORDERED: METHADONE HCL 10 MG TABLET PO ONE (10:00)
[2019-07-01] MEDS ORDERED: METHADONE HCL 40 MG DISPERSABLE TABLET ONE (10:16)
[2019-07-01] MEDS ORDERED: METHADONE HCL 10 MG TABLET ONE (10:16)
[2019-07-01] MEDS: diazePAM 5 MG TABLET PO PRN ×3 (10:17→22:10)
[2019-07-01] MEDS: NICOTINE 21 MG/24 HOURS TOPICAL PATCH TD SCH (10:17)
[2019-07-01] MEDS: PRENATAL VITAMINS W/ FOLIC ACID TABLET (FP) PO SCH (10:17)
[2019-07-01 17:31] VITALS: TEMP 97.4
[2019-07-01] MEDS: THIAMINE HCL 100 MG TABLET (FP) PO SCH (22:09)
[2019-07-02] MEDS ORDERED: METHADONE HCL 10 MG TABLET ONE (04:24)
[2019-07-02] MEDS ORDERED: METHADONE HCL 40 MG DISPERSABLE TABLET ONE (04:24)
[2019-07-02] MEDS: GABAPENTIN 300 MG CAPSULE (FP) PO SCH (05:35)
[2019-07-02] MEDS ORDERED: METHADONE HCL 10 MG TABLET PO SCH (06:00)
[2019-07-02] MEDS ORDERED: diazePAM 5 MG TABLET PO ONE (06:00)
[2019-07-02] MEDS ORDERED: METHADONE 40 MG, METHADONE 20 MG PO SCH (06:00)
[2019-07-02 06:16] VITALS: BP 115/76; PULSE 52
[2019-07-02] MEDS: PRENATAL VITAMINS W/ FOLIC ACID TABLET (FP) PO SCH (09:13)
[2019-07-02] MEDS: NICOTINE 21 MG/24 HOURS TOPICAL PATCH TD SCH (09:13)
--- NOTE | 2019-07-02 10:32 | DS ---
[facility] Detox Discharge Summary Admission Date: 06/29/19 Discharge Date: 07/02/19 - History Present History: Sedative Dependence Additional Comments: 49 years old male admitted on 06/29/19 for benzo withdrawal sx management treated with valium detox regimen patient tolerated well patient is alert oriented x 3 cardiac S1S2 regular rate rhythm respiratory clear lung bilaterally on auscultatino abdomen soft round obese no rebound tenderness - Physical Exam Results Vital Signs: Vital Signs Temperature 97.4 F L 07/02/19 06:15 Pulse Rate 52 L 07/02/19 06:15 Respiratory Rate 16 07/02/19 06:15 Blood Pressure 115/76 07/02/19 06:15 O2 Sat by Pulse Oximetry (%) Pertinent Admission Physical Exam Findings: benzo withdrawal sx Laboratory Last Values WBC 4.1 K/mm3 (4.0-10.0) 06/30/19 07:50 RBC 3.66 M/mm3 (4.00-5.60) L 06/30/19 07:50 Hgb 11.6 GM/dL (11.7-16.9) L 06/30/19 07:50 Hct 32.6 % (35.4-49) L D 06/30/19 07:50 MCV 89.1 fl (80-96) 06/30/19 07:50 MCH 31.6 pg (25.7-33.7) 06/30/19 07:50 MCHC 35.5 g/dl (32.0-35.9) 06/30/19 07:50 RDW 15.3 % (11.9-15.9) 06/30/19 07:50 Plt Count 232 K/MM3 (134-434) D 06/30/19 07:50 MPV 8.6 fl (7.5-11.1) 06/30/19 07:50 Sodium 141 mmol/L (136-145) 06/30/19 07:50 Potassium 4.0 mmol/L (3.5-5.1) 06/30/19 07:50 Chloride 108 mmol/L (98-107) H 06/30/19 07:50 Carbon Dioxide 27 mmol/L (21-32) 06/30/19 07:50 Anion Gap 6 MMOL/L (8-16) L 06/30/19 07:50 BUN 20.5 mg/dL (7-18) H 06/30/19 07:50 Creatinine 0.7 mg/dL (0.55-1.3) 06/30/19 07:50 Est GFR (CKD-EPI)AfAm 126.64 06/30/19 07:50 Est GFR (CKD-EPI)NonAf 109.27 06/30/19 07:50 Random Glucose 97 mg/dL (74-106) 06/30/19 07:50 Calcium 8.2 mg/dL (8.5-10.1) L 06/30/19 07:50 Total Bilirubin 0.6 mg/dL (0.2-1) 06/30/19 07:50 AST 22 U/L (15-37) 06/30/19 07:50 ALT 13 U/L (13-61) 06/30/19 07:50 Alkaline Phosphatase 57 U/L (45-117) 06/30/19 07:50 Total Protein 6.5 g/dl (6.4-8.2) 06/30/19 07:50 Albumin 3.3 g/dl (3.4-5.0) L 06/30/19 07:50 RPR Titer Nonreactive (NONREACTIVE) 06/30/19 07:50 lab noted patient agrees to return to methadone maintaining program for lab follow up - Treatment Hospital Course: Detox Protocol Followed, Detoxed Safely, Responded well, Discharged Condition Good, Rehab Referral Accepted Patient has Accepted a Rehab Referral to: return to methadone maintenance program - Medication Discharge Medications: Ambulatory Orders Gabapentin 600 mg PO TID 01/05/19 - Diagnosis (1) Sedative, hypnotic or anxiolytic dependence, uncomplicated Status: Acute (2) GERD (gastroesophageal reflux disease) Status: Chronic Qualifiers: Esophagitis presence: without esophagitis Qualified Code(s): K21.9 - Gastro -esophageal reflux disease without esophagitis (3) Methadone maintenance therapy patient Status: Chronic (4) Nicotine dependence Status: Acute Qualifiers: Nicotine product type: cigarettes Substance use status: in withdrawal Qualified Code(s): F17.213 - Nicotine dependence, cigarettes, with withdrawal (5) PPD positive, treated Status: Resolved - AMA Did Patient Leave Against Medical Advice: No CIWA Score - CIWA Score Nausea/Vomitin-No Nausea/No Vomiting Muscle Tremors: 1-None Visible, but Watkins Anxiety: 2 Agitation: 1-Slight > Activity Paroxysmal Sweats: No Perspiration Orientation: 0-Oriented Tacttile Disturbances: 0-None Auditory Disturbances: 0-None Visual Disturbances: 0-None Headache: 0-None Present CIWA-Ar Total Score: 4
== END 2019-07-02 08:54 | disposition home or self-care (01) | DRG 773 ==
LOC: YASAS 11:54 → Y3N 15:07
PROVIDERS: ADMIT Allergy & Immunology; ATTEND Allergy & Immunology
PROC: HZ2ZZZZ Detoxification Services for Substance Abuse Treatment (ICD-10-PCS; principal; 2019-06-29)
DX: F13.230 Sedative, hypnotic or anxiolytic dependence with withdrawal, uncomplicated (principal); F11.20 Opioid dependence, uncomplicated; F17.213 Nicotine dependence, cigarettes, with withdrawal; F41.9 Anxiety disorder, unspecified; F19.280 Other psychoactive substance dependence with psychoactive substance-induced anxiety disorder; F19.282 Other psychoactive substance dependence with psychoactive substance-induced sleep disorder; K21.9 Gastro-esophageal reflux disease without esophagitis; R76.11 Nonspecific reaction to tuberculin skin test without active tuberculosis; M54.30 Sciatica, unspecified side; G40.909 Epilepsy, unspecified, not intractable, without status epilepticus; Z87.438 Personal history of other diseases of male genital organs; Z62.810 Personal history of physical and sexual abuse in childhood
CPT/HCPCS: 36415; 71046-TC-FY; 80053; 85027; 86593

== ENCOUNTER 2020-05-31 12:26 | Inpatient (IN) | payer OTHER ==
--- OUTSIDE RECORDS SUMMARY | 2020-05-31 12:30 | XMS ---
:1970 Author Organization [facility] Support Name Relationship Address Phone UE Unavailable Unavailable Unavailable ARBEN MURPHY DAUGHTER [address] [place] [address] Re-disclosure Warning The records that you are about to access may contain information from federally- assisted alcohol or drug abuse programs. If such information is present, then the following federally mandated warning applies: This information has been disclosed to you from records protected by federal confidentiality rules (42 CFR part 2). The federal rules prohibit you from making any further disclosure of this information unless further disclosure is expressly permitted by the written consent of the person to whom it pertains or as otherwise permitted by 42 CFR part 2. A general authorization for the release of medical or other information is NOT sufficient for this purpose. The Federal rules restrict any use of the information to criminally investigate or prosecute any alcohol or drug abuse patient.The records that you are about to access may contain highly sensitive health information, the redisclosure of which is protected by Article 27-F of the [facility] Public Health law. If you continue you may haveaccess to information: Regarding HIV / AIDS; Provided by facilities licensed or operated by the [facility] Office of Mental Health; or Provided by the [facility] Office for People With Developmental Disabilities. If such information is present, then the following [facility] mandated warning applies: This information has been disclosed to you from confidential records which are protected by state law. State law prohibits you from making any further disclosure of this information without the specific written consent of the person to whom it pertains, or as otherwise permitted by law. Any unauthorized further disclosure in violation of state law may result in a fine or usp sentence or both. A general authorization for the release of medical or other information is NOT sufficient authorization for further disclosure. Insurance Providers Payer name Policy type Policy ID Covered Covered alliance party's Policy P araceli / Coverage alliance party ID relationship to Elizabeth Inf ormation type elizabeth MEDICAID [id number] SP [id number] QUIANA [id number] SP [id number] 400 HEALTH NON CAP QUIANA [id number] SP [id number] HEALTH NON CAP Results ID Date Data Source [id number] 04/05/2020 01:07:00 PM EDT [place] Name Value Range Interpretation Code Description Data Sri rce(s) Supporting Document(s ) SARS-COV-2 [place] PCR This lab was ordered by and reported by [facility]. Procedure
--- NOTE | 2020-05-31 15:49 | BHS.RME ---
Substance Use & Tx History - Substance Use History Xanax Substance amount: 10 mg Frequency of use: Daily Substance route: Oral Date of Last Use: 05/30/20 Klonopin Substance amount: 15 mg Frequency of use: Daily Substance route: Oral Date of Last Use: 05/31/20 Methamphetamine Substance amount: $300/week Frequency of use: More than 3 times per week Substance route: Smoking Date of Last Use: 05/30/20 - Last Treatment Date of last treatment: 06/29/2019 Treatment type: Substance Use Disorder (ALAN) Where was last treatment: Detox Physical/Psych/Mental Status - Behavior General Behavior: Increased activity (restlessness, agitation) Eye Contact: Excessive Other Behaviors: Mannerisms - Cooperativeness Cooperativeness: Cooperative - Thinking Thought Processes: Tight Thought content: Future oriented - Physical Health Problems Is patient presently having any pain?: Yes Does patient presently have any injuries (include location): No Does patient currently have a fever: No CIWA Nausea/Vomitin-Mild Nausea/No Vomiting Muscle Tremors: 2 Anxiety: 3 Agitation: 3 Paroxysmal Sweats: 2 Orientation: 0-Oriented Tacttile Disturbances: 1-Very Mild Itch/Numbness Auditory Disturbances: 0-None Visual Disturbances: 1-Very Mild Sensitivity Headache: 2-Mild CIWA-Ar Total Score: 15
--- NOTE | 2020-05-31 15:57 | HP ---
CIWA Score Nausea/Vomitin-Mild Nausea/No Vomiting Muscle Tremors: 2 Anxiety: 3 Agitation: 3 Paroxysmal Sweats: 2 Orientation: 0-Oriented Tacttile Disturbances: 1-Very Mild Itch/Numbness Auditory Disturbances: 0-None Visual Disturbances: 1-Very Mild Sensitivity Headache: 2-Mild CIWA-Ar Total Score: 15 - Admission Criteria OASAS Guidelines: Admission for Medically Managed Detox: Requires at least one of the followin. CIWA greater than 12 2. Seizures within the past 24 hours 3. Delirium tremens within the past 24 hours 4. Hallucinations within the past 24 hours 5. Acute intervention needed for co occurring medical disorder 6. Acute intervention needed for co occurring psychiatric disorder 7. Severe withdrawal that cannot be handled at a lower level of care (continued vomiting, continued diarrhea, abnormal vital signs) requiring intravenous medication and/or fluids 8. Patient presents the following: CIWA greater than 12 Admission Criteria Met: Admission criteria met Admitting History and Physical - Smoking History Smoking history: Current every day smoker Have you smoked in the past 12 months: Yes Aproximately how many cigarettes per day: 20 - Alcohol/Substance Use Hx Alcohol Use: No Admission ROS [facility] Chief Complaint: I am here for detox Allergies/Adverse Reactions: Allergies Allergy/AdvReac Type Severity Reaction Status Date / Time Penicillins Allergy Verified 06/29/19 13:00 History of Present Illness: Patient is a 50 years old man who presents for detox from benzos. His last treatment was in June of 2019. He denies overdose, he reports seizure and blackouts, last event was in December. Patient is on methadone maintenance 160mg @ [facility]. Approach, she was medicated this morning. Exam Limitations: No Limitations - Ebola screening Have you traveled outside of the country in the last 21 days: No Have you had contact with anyone from an Ebola affected area: No Have you been sick,other than usual withdrawal symptoms: No Do you have a fever: No - Review of Systems Constitutional: Chills, Loss of Appetite, Changes in sleep, Weight Stable EENT: reports: Blurred Vision, Recent change in vision, Other (U/L full dentures) Respiratory: reports: No Symptoms reported Cardiac: reports: No Symptoms Reported GI: reports: Constipated, Nausea, Poor Appetite, Poor Fluid Intake, Abdominal cramping : reports: No Symptoms Reported Musculoskeletal: reports: Back Pain, Joint Pain, Muscle Pain, Muscle Weakness Integumentary: reports: Sweating Neuro: reports: Headache, Numbness, Tremors Endocrine: reports: No Symptoms Reported Hematology: reports: No Symptoms Reported, Anemia Psychiatric: reports: Anxious, Depressed Other Systems: Reviewed and Negative Patient History - Patient Medical History Hx Anemia: No Hx Asthma: No Hx Chronic Obstructive Pulmonary Disease (COPD): No Hx Cancer: No Hx Cardiac Disorders: No Hx Congestive Heart Failure: No Hx Hypertension: No Hx Hypercholesterolemia: No Hx Pacemaker: No HX Cerebrovascular Accident: No Hx Seizures: Yes (seizure hx - last time october 2018) Hx Dementia: No Hx Diabetes: No Hx Gastrointestinal Disorders: Yes (GERD) Hx Liver Disease: No Hx Genitourinary Disorders: No Hx Sexually Transmitted Disorders: Yes Hx Renal Disease (ESRD): No Hx Thyroid Disease: No Hx Human Immunodeficiency Virus (HIV): No Hx Hepatitis C: No Hx Depression: Yes Hx Suicide Attempt: No Hx Bipolar Disorder: No Hx Schizophrenia: No - Patient Surgical History Past Surgical History: Yes Hx Neurologic Surgery: No Hx Cataract Extraction: No Hx Cardiac Surgery: No Hx Lung Surgery: No Hx Breast Surgery: No Hx Breast Biopsy: No Hx Abdominal Surgery: No Hx Appendectomy: No Hx Cholecystectomy: Yes (2004) Hx Genitourinary Surgery: No Hx Section: No Hx Orthopedic Surgery: No Other Surgical History: right inguinal hernia x2 and left inguinal repair 2010; nose polyps removal Anesthesia Reaction: No - PPD History Previous Implant?: No Documented Results: Positive w/o proof Implanted On Prior R Admission?: No Results: CXR(-)06/14 PPD to be Administered?: No - Smoking Cessation Smoking history: Current every day smoker Have you smoked in the past 12 months: Yes Aproximately how many cigarettes per day: 30 Hx Chewing Tobacco Use: No Initiated information on smoking cessation: Yes 'Breaking Loose' booklet given: 05/31/20 Admission Physical Exam BHS - Physical General Appearance: Yes: Mild Distress, Tremorous, Irritable HEENTM: Yes: Normocephalic, Normal Voice Respiratory: Yes: Chest Non-Tender, Lungs Clear, Normal Breath Sounds, No Respiratory Distress, No Accessory Muscle Use Neck: Yes: No masses,lesions,Nodules, Supple Breast: Yes: Breast Exam Deferred Cardiology: Yes: Regular Rhythm, Regular Rate Abdominal: Yes: Normal Bowel Sounds, Non Tender, Soft Genitourinary: Yes: Within Normal Limits Back: Yes: Normal Inspection Musculoskeletal: Yes: full range of Motion, Gait Steady, Back pain, Muscle Pain, Muscle weakness Neurological: Yes: Fully Oriented, Alert, Normal Response Integumentary: Yes: Cold, Clammy Lymphatic: Yes: Within Normal Limits - Diagnostic (1) Sedative, hypnotic or anxiolytic dependence with withdrawal, uncomplicated Current Visit: Yes Status: Acute (2) GERD (gastroesophageal reflux disease) Current Visit: Yes Status: Chronic Qualifiers: Esophagitis presence: without esophagitis Qualified Code(s): K21.9 - Gastro-esophageal reflux disease without esophagitis (3) Methadone maintenance therapy patient Current Visit: Yes Status: Chronic Cleared for Admission S - Detox or Rehab [facility] Level of Care: Medically Managed Detox Regimen/Protocol: Valium Claeared for Rehab Admission: No Breathalyzer - Breathalyzer Breathalyzer: 0 Urine Drug Screen - Test Device Lot number: [id number] Expiration date: 07/27/21 - Control Is test valid?: Yes - Results Drug screen NEGATIVE: No Urine drug screen results: MTD-Methadone, BZO-Benzodiazepines Inpatient Rehab Admission - Rehab Decision to Admit Inpatient rehab admission?: No
[2020-05-31] MEDS ORDERED: MAGNESIUM CITRATE 300 ML BOTTLE PO PRN (16:31)
[2020-05-31] MEDS ORDERED: IBUPROFEN 400 MG TABLET (FP) PO PRN (16:31)
[2020-05-31] MEDS ORDERED: MAGNESIUM HYDROX 2400MG/30ML ORAL SUSPENSION 30 ML CUP PO PRN (16:31)
[2020-05-31] MEDS ORDERED: ACETAMINOPHEN 325 MG TABLET (FP) PO PRN ×2 (16:31)
[2020-05-31] MEDS ORDERED: MAG HYDROX/AL HYDROX/SIMETH 30 ML UNIT-DOSE CUP PO PRN (16:31)
[2020-05-31] MEDS ORDERED: hydrOXYzine PAMOATE 25 MG CAPSULE (FP) PO PRN (16:31)
[2020-05-31] MEDS ORDERED: ONDANSETRON *ODT* 4 MG TABLET SL PRN (16:31)
[2020-05-31] MEDS ORDERED: BISMUTH SUBSALICYLATE 524 MG/30 ML UD PO PRN (16:31)
[2020-05-31] MEDS ORDERED: NICOTINE POLACRILEX 2 MG GUM BUC PRN (16:31)
[2020-05-31] MEDS ORDERED: MENTHOL/PHENOL 1 EACH UD MM PRN (16:31)
--- OUTSIDE RECORDS SUMMARY | 2020-05-31 16:53 | XMS ---
:1970 Author Organization [facility] Support Name Relationship Address Phone UE Unavailable Unavailable Unavailable ARBEN MURPHY DAUGHTER [phone] [place] [address] Re-disclosure Warning The records that you are [...] is protected by Article 27-F of the [facility] Public Health law. If you continue you may haveaccess to information: Regarding HIV / AIDS; Provided by facilities licensed or operated by the [facility] Office of Mental Health; or Provided by the [facility] Office for People With Developmental Disabilities. If such information is present, then the following [facility] mandated warning applies: This information has [...] law may result in a fine or custodial sentence or both. A general authorization for the release of medical or other information is NOT sufficient authorization for further disclosure. Insurance Providers Payer name Policy type Policy ID Covered Covered libertarian's Policy P araceli / Coverage libertarian ID relationship to Elizabeth Inf ormation type elizabeth QUIANA [id number] SP [id number] 400 HEALTH NON CAP MEDICAID [id number] SP [id number] QUIANA [id number] HEALTH NON CAP Results ID Date Data Source [id number] 04/05/2020 01:07:00 PM EDT [place] Name Value Range Interpretation Code Description Data Sri rce(s) Supporting Document(s ) SARS-COV-2 [place] PCR This lab was ordered by and reported by [facility]. Procedure
[2020-05-31 17:11] VITALS: BMI 27.9
[2020-05-31] MEDS: diazePAM 5 MG TABLET PO SCH ×2 (17:49→22:18)
[2020-05-31] MEDS ORDERED: MASKS NR ONE (19:56)
[2020-05-31] MEDS: diazePAM 5 MG TABLET PO PRN (20:41)
[2020-05-31] MEDS ORDERED: GABAPENTIN 300 MG CAPSULE PO ONE (22:00)
[2020-05-31] MEDS: MELATONIN 5 MG TABLETS PO SCH (22:17)
[2020-05-31] MEDS: THIAMINE HCL 100 MG TABLET (FP) PO SCH (22:17)
[2020-06-01] MEDS: diazePAM 5 MG TABLET PO SCH ×4 (07:10→22:10)
[2020-06-01] MEDS: METHADONE HCL 40 MG DISPERSABLE TABLET PO SCH (10:04)
[2020-06-01] MEDS: PRENATAL VITAMINS W/ FOLIC ACID TABLET (FP) PO SCH (10:04)
[2020-06-01] MEDS: NICOTINE 14 MG/24 HOURS TOPICAL PATCH TD SCH (10:05)
[2020-06-01] MEDS: METHOCARBAMOL 500 MG TABLET PO PRN ×2 (10:05→22:47)
--- NOTE | 2020-06-01 11:18 | PN ---
[facility] CIWA - CIWA Score Nausea/Vomitin-No Nausea/No Vomiting Muscle Tremors: 3 Anxiety: 3 Agitation: 2 Paroxysmal Sweats: No Perspiration Orientation: 0-Oriented Tacttile Disturbances: 0-None Auditory Disturbances: 0-None Visual Disturbances: 2-Mild Sensitivity Headache: 1-Very Mild CIWA-Ar Total Score: 11 S Progress Note (SOAP) Subjective: 50 years old male was admitted for benzo withdrawal sx management treating with valium detox regiment received methadone 160mg po today resting in bed comfortably feels tired and "need to sleep" Objective: 06/01/20 11:17 Vital Signs - 24 hr 05/31/20 05/31/20 05/31/20 16:48 16:51 17:35 Temperature 97.3 F L 97.2 F L Pulse Rate 83 86 Respiratory 20 18 Rate Blood Pressure 126/81 121/74 O2 Sat by Pulse 99 100 Oximetry (%) 05/31/20 06/01/20 20:45 08:30 Temperature 97.3 F L 96.8 F L Pulse Rate 101 H 70 Respiratory 18 18 Rate Blood Pressure 129/86 98/59 L O2 Sat by Pulse 98 Oximetry (%) 06/01/20 11:17 lab pending Assessment: 06/01/20 11:17 benzo withdrawal Plan: valium regiment
[2020-06-01] MEDS: diazePAM 5 MG TABLET PO PRN (13:49)
[2020-06-01 14:39] LABS: HEMOGLOBIN 10.8 GM/dL (11.7-16.9); MCH 30.9 pg (25.7-33.7); MCHC 33.8 g/dl (32.0-35.9); MEAN CELL VOLUME 91.4 fl (80-96); MEAN PLT VOLUME 8.3 fl (7.5-11.1); PLATELET COUNT 221 K/MM3 (134-434); RDW 15.8 % (11.9-15.9); WHITE BLOOD COUNT 3.9 K/mm3 (4.0-10.0)
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
[2020-06-01 14:51] LABS: ALBUMIN 3.4 g/dl (3.4-5.0); BILIRUBIN,TOTAL 0.3 mg/dL (0.2-1); BLOOD UREA NITROGEN 27.5 mg/dL (7-18); CALCIUM 8.7 mg/dL (8.5-10.1); CREATININE 0.7 mg/dL (0.55-1.3); POTASSIUM 4.6 mmol/L (3.5-5.1); TOT PROT 6.7 g/dl (6.4-8.2)
[2020-06-01] MEDS ORDERED: GABAPENTIN 300 MG CAPSULE PO SCH (22:00)
[2020-06-01] MEDS: THIAMINE HCL 100 MG TABLET (FP) PO SCH (22:10)
[2020-06-01] MEDS: QUEtiapine FUMARATE 50 MG TABLET PO SCH (22:11)
[2020-06-01] MEDS: GABAPENTIN 300 MG CAPSULE PO SCH (22:11)
[2020-06-01] MEDS: MELATONIN 5 MG TABLETS PO SCH (22:13)
[2020-06-02] MEDS: METHADONE HCL 40 MG DISPERSABLE TABLET PO SCH (05:33)
[2020-06-02] MEDS: diazePAM 5 MG TABLET PO SCH ×3 (05:34→22:17)
[2020-06-02] MEDS: GABAPENTIN 300 MG CAPSULE PO SCH ×3 (05:34→22:18)
[2020-06-02] MEDS: PRENATAL VITAMINS W/ FOLIC ACID TABLET (FP) PO SCH (10:20)
[2020-06-02] MEDS: METHOCARBAMOL 500 MG TABLET PO PRN (10:20)
[2020-06-02] MEDS: diazePAM 5 MG TABLET PO PRN ×2 (10:20→17:45)
[2020-06-02] MEDS: NICOTINE 14 MG/24 HOURS TOPICAL PATCH TD SCH (10:21)
--- NOTE | 2020-06-02 12:37 | PN ---
S CIWA - CIWA Score Nausea/Vomitin-No Nausea/No Vomiting Muscle Tremors: 2 Anxiety: 3 Agitation: 2 Paroxysmal Sweats: No Perspiration Orientation: 0-Oriented Tacttile Disturbances: 0-None Auditory Disturbances: 0-None Visual Disturbances: 1-Very Mild Sensitivity Headache: 1-Very Mild CIWA-Ar Total Score: 9 [facility] Progress Note (SOAP) Subjective: 50 years old male was admitted on 05/31/20 for benzo withdrawal sx management treating with valium detox regiment reports taking gabapentin 600mg po tid not 300mg encourage mr mejia to discuss gabapentin with psychiatrist psychiatrist referral report muscle stiffness lidocain patch [place] [facility] adding vistaril 50mg po q6h for anxiety Objective: 06/02/20 12:43 Vital Signs - 24 hr 06/01/20 06/01/20 06/01/20 12:46 16:34 20:39 Temperature 98.0 F 97.1 F L 96.9 F L Pulse Rate 73 71 68 Respiratory 18 18 18 Rate Blood Pressure 125/75 109/68 105/69 O2 Sat by Pulse 98 98 Oximetry (%) 06/02/20 06/02/20 06:34 09:10 Temperature 97.5 F L 97.1 F L Pulse Rate 62 58 L Respiratory 18 18 Rate Blood Pressure 103/62 102/60 O2 Sat by Pulse 98 98 Oximetry (%) Laboratory Tests 05/31/20 05/31/20 06/01/20 08:46 17:00 08:46 WBC 3.9 L RBC 3.50 L Hgb 10.8 L Hct 32.0 L MCV 91.4 MCH 30.9 MCHC 33.8 RDW 15.8 Plt Count 221 MPV 8.3 Sodium Potassium Chloride Carbon Dioxide Anion Gap BUN Creatinine Est GFR (CKD-EPI)AfAm Est GFR (CKD-EPI)NonAf Random Glucose Calcium Total Bilirubin AST ALT Alkaline Phosphatase Total Protein Albumin Syphilis Serology Non-reactive COVID-19 (DEVANTE) Not detected 06/01/20 08:46 WBC RBC Hgb Hct MCV MCH MCHC RDW Plt Count MPV Sodium 140 Potassium 4.6 Chloride 105 Carbon Dioxide 32 Anion Gap 2 L BUN 27.5 H Creatinine 0.7 Est GFR (CKD-EPI)AfAm 125.75 Est GFR (CKD-EPI)NonAf 108.50 Random Glucose 123 H Calcium 8.7 Total Bilirubin 0.3 AST 26 ALT 17 Alkaline Phosphatase 52 Total Protein 6.7 Albumin 3.4 Syphilis Serology COVID-19 (DEVANTE) bun elevation 06/02/20 12:45 repeat pending Assessment: 06/02/20 12:45 benzo withdrawal Plan: valium regiment
[2020-06-02] MEDS: hydrOXYzine PAMOATE 50 MG CAPSULE (FP) PO SCH ×2 (13:29→17:45)
[2020-06-02] MEDS: LIDOCAINE 5% TOPICAL PATCH TP SCH (13:29)
[2020-06-02] MEDS: METHYL SALICYLATE/MENTHOL OINT 30 GM TUBE TP SCH (13:30)
[2020-06-02] MEDS: THIAMINE HCL 100 MG TABLET (FP) PO SCH (22:17)
[2020-06-02] MEDS: QUEtiapine FUMARATE 50 MG TABLET PO SCH (22:17)
[2020-06-02] MEDS: LIDOCAINE PATCH REMOVAL MC SCH (22:58)
[2020-06-02] MEDS: MELATONIN 5 MG TABLETS PO SCH (22:58)
[2020-06-03] MEDS: hydrOXYzine PAMOATE 50 MG CAPSULE (FP) PO SCH ×4 (01:01→18:06)
[2020-06-03] MEDS: diazePAM 5 MG TABLET PO PRN ×3 (01:02→13:38)
[2020-06-03] MEDS: diazePAM 5 MG TABLET PO SCH ×2 (06:52→18:06)
[2020-06-03] MEDS: GABAPENTIN 300 MG CAPSULE PO SCH (06:52)
[2020-06-03] MEDS: METHADONE HCL 40 MG DISPERSABLE TABLET PO SCH (06:52)
--- NOTE | 2020-06-03 07:55 | PN ---
S CIWA - CIWA Score Nausea/Vomitin-No Nausea/No Vomiting Muscle Tremors: 2 Anxiety: 2 Agitation: 2 Paroxysmal Sweats: No Perspiration Orientation: 0-Oriented Tacttile Disturbances: 1-Very Mild Itch/Numbness Auditory Disturbances: 0-None Visual Disturbances: 0-None Headache: 1-Very Mild CIWA-Ar Total Score: 8 BHS Progress Note (SOAP) Subjective: alert,irritable,anxious,interrupted sleep,aching pain Objective: 06/03/20 16:32 Vital Signs Temperature 97.3 F L 06/03/20 12:26 Pulse Rate 73 06/03/20 12:26 Respiratory Rate 18 06/03/20 12:26 Blood Pressure 107/67 06/03/20 12:26 O2 Sat by Pulse Oximetry (%) 97 06/03/20 12:26 Assessment: 06/03/20 16:32 withdrawal symptom Plan: continue detox valium regimen,discharge in am
--- NOTE | 2020-06-03 07:55 | DS ---
[facility] Detox Discharge Summary Admission Date: 05/31/20 - Physical Exam Results Vital Signs: Vital Signs Temperature 97.3 F L 06/03/20 06:39 Pulse Rate 61 06/03/20 06:39 Respiratory Rate 16 06/03/20 06:39 Blood Pressure 108/63 06/03/20 06:39 O2 Sat by Pulse Oximetry (%) 99 06/03/20 06:39 - Medication Discharge Medications: Ambulatory Orders Gabapentin 600 mg PO TID 01/05/19
[2020-06-03] MEDS: PRENATAL VITAMINS W/ FOLIC ACID TABLET (FP) PO SCH (10:23)
[2020-06-03] MEDS: LIDOCAINE 5% TOPICAL PATCH TP SCH (10:24)
[2020-06-03] MEDS: NICOTINE 14 MG/24 HOURS TOPICAL PATCH TD SCH (10:24)
[2020-06-03] MEDS: METHYL SALICYLATE/MENTHOL OINT 30 GM TUBE TP SCH (10:26)
[2020-06-03] MEDS: GABAPENTIN 400 MG CAPSULE PO SCH ×2 (13:38→22:40)
--- NOTE | 2020-06-03 14:38 | PN ---
[facility] Progress Note Note: Psychiatry Attending's note (follow-up) : Met with the patient. Mr Stock is requesting more gabapentin. " I used to be on 600 mg three times a day." He reports that current dose (300 mg/tid) is ineffective. Patient is ambulatory. Steady gait. Intact cognition. No hallucinations or delusions. Clear and coherent speech. No suicidal/homicidal ideation, intent or plan. Fair sleep. Anxious mood. Stable mental status. Detoxification in progress. Action : Gabapentin dose is raised to 400 mg po tid. Patient agrees with plan.
[2020-06-03] MEDS: LIDOCAINE PATCH REMOVAL MC SCH (22:39)
[2020-06-03] MEDS: THIAMINE HCL 100 MG TABLET (FP) PO SCH (22:39)
[2020-06-03] MEDS: MELATONIN 5 MG TABLETS PO SCH (22:40)
[2020-06-03] MEDS: METHOCARBAMOL 500 MG TABLET PO PRN (22:40)
[2020-06-03] MEDS: QUEtiapine FUMARATE 50 MG TABLET PO SCH (22:40)
[2020-06-04] MEDS: hydrOXYzine PAMOATE 50 MG CAPSULE (FP) PO SCH ×2 (01:13→07:13)
[2020-06-04] MEDS ORDERED: diazePAM 5 MG TABLET PO ONE (06:00)
[2020-06-04] MEDS: GABAPENTIN 400 MG CAPSULE PO SCH (06:14)
[2020-06-04] MEDS: METHADONE HCL 40 MG DISPERSABLE TABLET PO SCH (06:14)
--- NOTE | 2020-06-04 08:14 | PN ---
[facility] CIWA - CIWA Score Nausea/Vomitin-No Nausea/No Vomiting Muscle Tremors: None Anxiety: 1-Mildly Anxious Agitation: 0-Normal Activity Paroxysmal Sweats: No Perspiration Orientation: 0-Oriented Tacttile Disturbances: 0-None Auditory Disturbances: 0-None Visual Disturbances: 0-None Headache: 0-None Present CIWA-Ar Total Score: 1 [facility] Progress Note (SOAP) Subjective: alert,no complaint Objective: 06/04/20 11:43 Vital Signs Temperature 96.8 F L 06/04/20 08:56 Pulse Rate 64 06/04/20 08:56 Respiratory Rate 18 06/04/20 08:56 Blood Pressure 103/88 06/04/20 08:56 O2 Sat by Pulse Oximetry (%) 98 06/04/20 08:56 Assessment: 06/04/20 11:44 detox completed,no withdrawal symptom Plan: stable for discharger today,patient refused rehab at [facility],will go back to his methadone program
--- NOTE | 2020-06-04 08:14 | DS ---
[facility] Detox Discharge Summary Admission Date: 05/31/20 Discharge Date: 06/04/20 - History Present History: Sedative Dependence, MMTP Additional Comments: alert,oriented x 3 ambulation on the unit lung clear on auscultation bilaterally abdomen soft,no distension,no pain or tenderness no edema of the legs patient is stable for discharge today patient declined to go to [facility] rehab will go to [facility] clinic for follow up left the unit in Pertinent Past History: insomnia - Physical Exam Results Vital Signs: Vital Signs Temperature 97.2 F L 06/04/20 06:56 Pulse Rate 58 L 06/04/20 06:56 Respiratory Rate 18 06/04/20 06:56 Blood Pressure 101/61 06/04/20 06:56 O2 Sat by Pulse Oximetry (%) 98 06/04/20 06:56 Pertinent Admission Physical Exam Findings: withdrawal signs and symptom Laboratory Last Values WBC 3.9 K/mm3 (4.0-10.0) L 06/01/20 08:46 RBC 3.50 M/mm3 (4.00-5.60) L 06/01/20 08:46 Hgb 10.8 GM/dL (11.7-16.9) L 06/01/20 08:46 Hct 32.0 % (35.4-49) L 06/01/20 08:46 MCV 91.4 fl (80-96) 06/01/20 08:46 MCH 30.9 pg (25.7-33.7) 06/01/20 08:46 MCHC 33.8 g/dl (32.0-35.9) 06/01/20 08:46 RDW 15.8 % (11.9-15.9) 06/01/20 08:46 Plt Count 221 K/MM3 (134-434) 06/01/20 08:46 MPV 8.3 fl (7.5-11.1) 06/01/20 08:46 Sodium 140 mmol/L (136-145) 06/01/20 08:46 Potassium 4.6 mmol/L (3.5-5.1) 06/01/20 08:46 Chloride 105 mmol/L (98-107) 06/01/20 08:46 Carbon Dioxide 32 mmol/L (21-32) 06/01/20 08:46 Anion Gap 2 MMOL/L (8-16) L 06/01/20 08:46 BUN 25.9 mg/dL (7-18) H 06/03/20 07:00 Creatinine 0.7 mg/dL (0.55-1.3) 06/01/20 08:46 Est GFR (CKD-EPI)AfAm 125.75 06/01/20 08:46 Est GFR (CKD-EPI)NonAf 108.50 06/01/20 08:46 Random Glucose 123 mg/dL (74-106) H 06/01/20 08:46 Calcium 8.7 mg/dL (8.5-10.1) 06/01/20 08:46 Total Bilirubin 0.3 mg/dL (0.2-1) 06/01/20 08:46 AST 26 U/L (15-37) 06/01/20 08:46 ALT 17 U/L (13-61) 06/01/20 08:46 Alkaline Phosphatase 52 U/L (45-117) 06/01/20 08:46 Total Protein 6.7 g/dl (6.4-8.2) 06/01/20 08:46 Albumin 3.4 g/dl (3.4-5.0) 06/01/20 08:46 Syphilis Serology Non-reactive (NONREACTIVE) 05/31/20 08:46 COVID-19 (DEVANTE) Not detected (Not Detected) 05/31/20 17:00 Vital Signs Temperature 96.8 F L 06/04/20 08:56 Pulse Rate 64 06/04/20 08:56 Respiratory Rate 18 06/04/20 08:56 Blood Pressure 103/88 06/04/20 08:56 O2 Sat by Pulse Oximetry (%) 98 06/04/20 08:56 - Treatment Hospital Course: Detox Protocol Followed, Detoxed Safely, Responded well, Discharged Condition Good Patient has Accepted a Rehab Referral to: declined - Medication Discharge Medications: Ambulatory Orders Gabapentin 600 mg PO TID 01/05/19 - Diagnosis (1) Sedative, hypnotic or anxiolytic dependence, uncomplicated Status: Acute (2) Anxiety disorder Status: Chronic Qualifiers: Anxiety disorder type: unspecified anxiety disorder Qualified Code(s): F41.9 - Anxiety disorder, unspecified (3) Hx of carpal tunnel syndrome Status: Chronic (4) Methadone maintenance therapy patient Status: Chronic - AMA Did Patient Leave Against Medical Advice: No
[2020-06-04 09:02] VITALS: BP 103/88; PULSE 64; TEMP 96.8
== END 2020-06-04 10:30 | disposition home or self-care (01) | DRG 773 ==
LOC: YASAS 12:26 → Y3N 16:48
PROVIDERS: ADMIT Allergy & Immunology; ATTEND Allergy & Immunology
PROC: HZ2ZZZZ Detoxification Services for Substance Abuse Treatment (ICD-10-PCS; principal; 2020-05-31)
DX: F13.230 Sedative, hypnotic or anxiolytic dependence with withdrawal, uncomplicated (principal); F11.20 Opioid dependence, uncomplicated; F14.20 Cocaine dependence, uncomplicated; F17.210 Nicotine dependence, cigarettes, uncomplicated; F19.24 Other psychoactive substance dependence with psychoactive substance-induced mood disorder; F41.9 Anxiety disorder, unspecified; G47.00 Insomnia, unspecified; M54.30 Sciatica, unspecified side; R76.11 Nonspecific reaction to tuberculin skin test without active tuberculosis; Z62.810 Personal history of physical and sexual abuse in childhood; Z86.69 Personal history of other diseases of the nervous system and sense organs; Z86.19 Personal history of other infectious and parasitic diseases; Z90.49 Acquired absence of other specified parts of digestive tract; Z98.890 Other specified postprocedural states; Z88.0 Allergy status to penicillin
CPT/HCPCS: 36415; 71046-TC-FY; 80053; 84520; 85027; 86780; U0003

== ENCOUNTER 2021-09-12 16:57 | Inpatient (IN) | payer OTHER ==
[2021-09-12 19:15] VITALS: BMI 34.4
[2021-09-12] MEDS ORDERED: MAG HYDROX/AL HYDROX/SIMETH 30 ML UNIT-DOSE CUP PO PRN (19:27)
[2021-09-12] MEDS ORDERED: MAGNESIUM CITRATE 300 ML BOTTLE PO PRN (19:27)
[2021-09-12] MEDS ORDERED: ACETAMINOPHEN 325 MG TABLET (FP) PO PRN ×2 (19:27)
[2021-09-12] MEDS ORDERED: BISMUTH SUBSALICYLATE 524 MG/30 ML PO PRN (19:27)
[2021-09-12] MEDS ORDERED: ONDANSETRON *ODT* 4 MG TABLET SL PRN (19:27)
[2021-09-12] MEDS ORDERED: NICOTINE POLACRILEX 4 MG GUM BUC PRN (19:27)
[2021-09-12] MEDS ORDERED: MAGNESIUM HYDROX 2400MG/30ML ORAL SUSPENSION 30 ML CUP PO PRN (19:27)
[2021-09-12] MEDS ORDERED: MENTHOL/PHENOL 1 EACH UD MM PRN (19:27)
[2021-09-12] MEDS: GABAPENTIN 400 MG CAPSULE PO SCH (21:30)
[2021-09-12] MEDS: THIAMINE HCL 100 MG TABLET (FP) PO SCH (21:30)
[2021-09-12] MEDS: diazePAM 5 MG TABLET PO PRN (21:31)
[2021-09-12] MEDS ORDERED: MELATONIN 5 MG TABLETS PO SCH (22:00)
[2021-09-12] MEDS: diazePAM 5 MG TABLET PO SCH (22:59)
[2021-09-13] MEDS: GABAPENTIN 400 MG CAPSULE PO SCH ×3 (06:13→21:50)
[2021-09-13] MEDS: diazePAM 5 MG TABLET PO SCH ×4 (06:13→22:15)
[2021-09-13] MEDS: PRENATAL VITAMINS W/ FOLIC ACID TABLET (FP) PO SCH (10:06)
[2021-09-13] MEDS: hydrOXYzine PAMOATE 25 MG CAPSULE (FP) PO PRN ×2 (10:06→13:25)
[2021-09-13] MEDS: NICOTINE 10 MG CARTRIDGE (INHALER) IH PRN (11:54)
[2021-09-13] MEDS ORDERED: methaDONE HCL 10 MG TABLET (FOR DETOX USE ONLY) PO ONE ×2 (14:30→20:30)
[2021-09-13] MEDS: diazePAM 5 MG TABLET PO PRN (14:33)
[2021-09-13] MEDS: THIAMINE HCL 100 MG TABLET (FP) PO SCH (21:50)
[2021-09-13] MEDS ORDERED: SUVOREXANT 10 MG TABLET PO PRN (22:00)
[2021-09-14] MEDS: GABAPENTIN 400 MG CAPSULE PO SCH ×3 (06:01→22:58)
[2021-09-14] MEDS: diazePAM 5 MG TABLET PO SCH ×3 (06:01→22:58)
[2021-09-14] MEDS ORDERED: methaDONE HCL 10 MG TABLET ONE (09:40)
[2021-09-14] MEDS ORDERED: methaDONE HCL 40 MG DISPERSABLE TABLET ONE (09:40)
[2021-09-14] MEDS: PRENATAL VITAMINS W/ FOLIC ACID TABLET (FP) PO SCH (09:58)
[2021-09-14] MEDS: diazePAM 5 MG TABLET PO PRN ×2 (09:59→18:43)
[2021-09-14] MEDS ORDERED: methaDONE HCL 10 MG TABLET PO ONE (10:00)
[2021-09-14] MEDS: hydrOXYzine PAMOATE 25 MG CAPSULE (FP) PO PRN (10:01)
[2021-09-14] MEDS: NICOTINE 10 MG CARTRIDGE (INHALER) IH PRN (10:06)
[2021-09-14 13:25] LABS: HEMATOCRIT 34.8 % (35.4-49); HEMOGLOBIN 11.6 GM/dL (11.7-16.9); MCH 29.8 pg (25.7-33.7); MCHC 33.3 g/dl (32.0-35.9); MEAN CELL VOLUME 89.6 fl (80-96); MEAN PLT VOLUME 8.5 fl (7.5-11.1); PLATELET COUNT 220 10^3/uL (134-434); RBC 3.88 M/mm3 (4.00-5.60); RDW 15.8 % (11.9-15.9); WHITE BLOOD COUNT 4.3 K/mm3 (4.0-10.0)
[2021-09-14 13:36] LABS: ALBUMIN 3.4 g/dl (3.4-5.0); BLOOD UREA NITROGEN 12.4 mg/dL (7-18); CALCIUM 8.6 mg/dL (8.5-10.1)
[2021-09-14 13:40] LABS: CREATININE 0.7 mg/dL (0.55-1.3)
[2021-09-14 13:41] LABS: BILIRUBIN,TOTAL 0.3 mg/dL (0.2-1); TOT PROT 6.8 g/dl (6.4-8.2)
[2021-09-14] MEDS: THIAMINE HCL 100 MG TABLET (FP) PO SCH (22:58)
[2021-09-14] MEDS: IBUPROFEN 400 MG TABLET (FP) PO PRN (23:16)
[2021-09-15] MEDS ORDERED: methaDONE HCL 40 MG DISPERSABLE TABLET ONE (04:23)
[2021-09-15] MEDS ORDERED: methaDONE HCL 10 MG TABLET ONE (04:23)
[2021-09-15] MEDS: diazePAM 5 MG TABLET PO SCH ×2 (05:19→17:26)
[2021-09-15] MEDS: GABAPENTIN 400 MG CAPSULE PO SCH ×3 (05:19→21:44)
[2021-09-15] MEDS ORDERED: methaDONE HCL 10 MG TABLET PO SCH (06:00)
[2021-09-15] MEDS: PRENATAL VITAMINS W/ FOLIC ACID TABLET (FP) PO SCH (10:44)
[2021-09-15] MEDS: hydrOXYzine PAMOATE 25 MG CAPSULE (FP) PO PRN ×2 (10:46→21:43)
[2021-09-15] MEDS: IBUPROFEN 400 MG TABLET (FP) PO PRN (10:46)
[2021-09-15] MEDS: THIAMINE HCL 100 MG TABLET (FP) PO SCH (21:44)
[2021-09-16] MEDS ORDERED: methaDONE HCL 10 MG TABLET ONE (04:48)
[2021-09-16] MEDS ORDERED: methaDONE HCL 40 MG DISPERSABLE TABLET ONE (04:49)
[2021-09-16] MEDS: GABAPENTIN 400 MG CAPSULE PO SCH (05:39)
[2021-09-16 05:55] VITALS: PULSE 63
[2021-09-16] MEDS ORDERED: diazePAM 5 MG TABLET PO ONE (06:00)
[2021-09-16 09:01] VITALS: BP 124/71; TEMP 97.9
== END 2021-09-16 09:05 | disposition home or self-care (01) | DRG 773 ==
LOC: YASAS 16:57 → Y6N 19:34
PROVIDERS: ADMIT Allergy & Immunology; ATTEND Allergy & Immunology
PROC: HZ2ZZZZ Detoxification Services for Substance Abuse Treatment (ICD-10-PCS; principal; 2021-09-12)
DX: F10.230 Alcohol dependence with withdrawal, uncomplicated (principal); F13.230 Sedative, hypnotic or anxiolytic dependence with withdrawal, uncomplicated; F11.20 Opioid dependence, uncomplicated; F14.20 Cocaine dependence, uncomplicated; F12.20 Cannabis dependence, uncomplicated; F17.210 Nicotine dependence, cigarettes, uncomplicated; F19.280 Other psychoactive substance dependence with psychoactive substance-induced anxiety disorder; F19.24 Other psychoactive substance dependence with psychoactive substance-induced mood disorder; F43.10 Post-traumatic stress disorder, unspecified; F41.9 Anxiety disorder, unspecified; M54.30 Sciatica, unspecified side; M17.0 Bilateral primary osteoarthritis of knee; M16.0 Bilateral primary osteoarthritis of hip; R29.6 Repeated falls; R35.1 Nocturia; Z62.810 Personal history of physical and sexual abuse in childhood; Z86.11 Personal history of tuberculosis; Z86.69 Personal history of other diseases of the nervous system and sense organs
CPT/HCPCS: 36415; 80053; 85027; 86780; 93005; 93010; C9803; U0003; U0005

== ENCOUNTER 2021-10-22 14:36 | Inpatient (IN) | payer OTHER ==
[2021-10-22 20:27] VITALS: BMI 27.3
[2021-10-22] MEDS ORDERED: IBUPROFEN 400 MG TABLET (FP) PO PRN (21:13)
[2021-10-22] MEDS ORDERED: NICOTINE POLACRILEX 2 MG GUM BUC PRN (21:13)
[2021-10-22] MEDS ORDERED: MELATONIN 5 MG TABLETS PO PRN (21:13)
[2021-10-22] MEDS ORDERED: MAGNESIUM HYDROX 2400MG/30ML ORAL SUSPENSION 30 ML CUP PO PRN (21:13)
[2021-10-22] MEDS ORDERED: MAGNESIUM CITRATE 300 ML BOTTLE PO PRN (21:13)
[2021-10-22] MEDS ORDERED: diazePAM 5 MG TABLET PO ONE (21:13)
[2021-10-22] MEDS ORDERED: BISMUTH SUBSALICYLATE 524 MG/30 ML PO PRN (21:13)
[2021-10-22] MEDS ORDERED: MAG HYDROX/AL HYDROX/SIMETH 30 ML UNIT-DOSE CUP PO PRN (21:13)
[2021-10-22] MEDS ORDERED: ONDANSETRON *ODT* 4 MG TABLET SL PRN (21:13)
[2021-10-22] MEDS ORDERED: LOPERAMIDE HCL 2 MG CAPSULE PO PRN (21:13)
[2021-10-22] MEDS ORDERED: MENTHOL/PHENOL 1 EACH UD MM PRN (21:13)
[2021-10-22] MEDS ORDERED: ACETAMINOPHEN 325 MG TABLET (FP) PO PRN ×2 (21:13)
[2021-10-22] MEDS: hydrOXYzine PAMOATE 25 MG CAPSULE (FP) PO PRN ×2 (22:37→23:30)
[2021-10-22] MEDS: GABAPENTIN 400 MG CAPSULE PO SCH (22:37)
[2021-10-22] MEDS: THIAMINE HCL 100 MG TABLET (FP) PO SCH (22:37)
[2021-10-22] MEDS: METHOCARBAMOL 500 MG TABLET PO PRN (23:30)
[2021-10-23] MEDS: diazePAM 5 MG TABLET PO SCH ×5 (00:01→22:29)
[2021-10-23] MEDS: GABAPENTIN 400 MG CAPSULE PO SCH ×3 (05:58→22:29)
[2021-10-23] MEDS ORDERED: methaDONE HCL 10 MG TABLET PO SCH (09:30)
[2021-10-23] MEDS ORDERED: methaDONE HCL 10 MG TABLET ONE (10:45)
[2021-10-23] MEDS ORDERED: methaDONE HCL 40 MG DISPERSABLE TABLET ONE (10:45)
[2021-10-23] MEDS: PRENATAL VITAMINS W/ FOLIC ACID TABLET (FP) PO SCH (10:49)
[2021-10-23] MEDS: PANTOPRAZOLE 40 MG TABLET PO SCH (10:49)
[2021-10-23] MEDS: METHOCARBAMOL 500 MG TABLET PO PRN (10:49)
[2021-10-23] MEDS: NICOTINE 10 MG CARTRIDGE (INHALER) IH PRN (10:51)
[2021-10-23] MEDS: diazePAM 5 MG TABLET PO PRN (13:32)
[2021-10-23] MEDS: THIAMINE HCL 100 MG TABLET (FP) PO SCH (22:29)
[2021-10-24] MEDS: diazePAM 5 MG TABLET PO PRN ×2 (01:55→17:59)
[2021-10-24] MEDS: diazePAM 5 MG TABLET PO SCH ×3 (05:55→22:36)
[2021-10-24] MEDS: GABAPENTIN 400 MG CAPSULE PO SCH ×3 (05:56→22:36)
[2021-10-24] MEDS: NICOTINE 10 MG CARTRIDGE (INHALER) IH PRN (05:58)
[2021-10-24] MEDS: PRENATAL VITAMINS W/ FOLIC ACID TABLET (FP) PO SCH (10:32)
[2021-10-24] MEDS: PANTOPRAZOLE 40 MG TABLET PO SCH (10:32)
[2021-10-24] MEDS ORDERED: methaDONE HCL 10 MG TABLET PO ONE (10:39)
[2021-10-24] MEDS ORDERED: methaDONE HCL 10 MG TABLET ONE (11:09)
[2021-10-24] MEDS ORDERED: methaDONE HCL 40 MG DISPERSABLE TABLET ONE (11:09)
[2021-10-24 14:06] LABS: SARS-CoV-2 NAA Not Detected (Not Detected)
[2021-10-24] MEDS: hydrOXYzine PAMOATE 25 MG CAPSULE (FP) PO PRN (17:59)
[2021-10-24] MEDS: THIAMINE HCL 100 MG TABLET (FP) PO SCH (22:38)
[2021-10-25] MEDS: diazePAM 5 MG TABLET PO PRN ×2 (03:42→10:10)
[2021-10-25] MEDS ORDERED: methaDONE HCL 40 MG DISPERSABLE TABLET ONE (04:01)
[2021-10-25] MEDS ORDERED: methaDONE HCL 10 MG TABLET ONE (04:01)
[2021-10-25] MEDS ORDERED: methaDONE HCL 10 MG TABLET PO SCH (06:00)
[2021-10-25] MEDS: GABAPENTIN 400 MG CAPSULE PO SCH ×3 (06:14→22:13)
[2021-10-25] MEDS: diazePAM 5 MG TABLET PO SCH ×2 (06:15→17:35)
[2021-10-25] MEDS: NICOTINE 10 MG CARTRIDGE (INHALER) IH PRN (06:24)
[2021-10-25] MEDS: PANTOPRAZOLE 40 MG TABLET PO SCH (10:10)
[2021-10-25] MEDS: hydrOXYzine PAMOATE 25 MG CAPSULE (FP) PO PRN ×2 (10:10→22:14)
[2021-10-25] MEDS: PRENATAL VITAMINS W/ FOLIC ACID TABLET (FP) PO SCH (10:12)
[2021-10-25] MEDS: THIAMINE HCL 100 MG TABLET (FP) PO SCH (22:13)
[2021-10-25] MEDS: METHOCARBAMOL 500 MG TABLET PO PRN (22:13)
[2021-10-26] MEDS ORDERED: methaDONE HCL 10 MG TABLET ONE (04:10)
[2021-10-26] MEDS ORDERED: methaDONE HCL 40 MG DISPERSABLE TABLET ONE (04:10)
[2021-10-26] MEDS: GABAPENTIN 400 MG CAPSULE PO SCH (05:36)
[2021-10-26] MEDS ORDERED: diazePAM 5 MG TABLET PO ONE (06:00)
[2021-10-26] MEDS: NICOTINE 10 MG CARTRIDGE (INHALER) IH PRN (08:55)
[2021-10-26] MEDS: PRENATAL VITAMINS W/ FOLIC ACID TABLET (FP) PO SCH (09:19)
[2021-10-26] MEDS: PANTOPRAZOLE 40 MG TABLET PO SCH (09:19)
[2021-10-26 09:25] VITALS: BP 148/77; PULSE 76; TEMP 96.9
== END 2021-10-26 10:00 | disposition home or self-care (01) | DRG 773 ==
LOC: YASAS 14:36 → Y6N 20:37
PROVIDERS: ADMIT Allergy & Immunology; ATTEND Allergy & Immunology
PROC: HZ2ZZZZ Detoxification Services for Substance Abuse Treatment (ICD-10-PCS; principal; 2021-10-22)
DX: F13.230 Sedative, hypnotic or anxiolytic dependence with withdrawal, uncomplicated (principal); F11.20 Opioid dependence, uncomplicated; F17.210 Nicotine dependence, cigarettes, uncomplicated; F19.280 Other psychoactive substance dependence with psychoactive substance-induced anxiety disorder; F19.24 Other psychoactive substance dependence with psychoactive substance-induced mood disorder; K21.9 Gastro-esophageal reflux disease without esophagitis; M17.0 Bilateral primary osteoarthritis of knee; M16.0 Bilateral primary osteoarthritis of hip; M54.50 Low back pain, unspecified; R26.89 Other abnormalities of gait and mobility; Z62.810 Personal history of physical and sexual abuse in childhood; E66.3 Overweight; Z68.27 Body mass index [BMI] 27.0-27.9, adult; Z99.89 Dependence on other enabling machines and devices; Z86.11 Personal history of tuberculosis; Z86.19 Personal history of other infectious and parasitic diseases; Z86.16 Personal history of COVID-19; Z91.81 History of falling
CPT/HCPCS: 87811; C9803; U0003; U0005

== ENCOUNTER 2022-03-04 13:09 | Inpatient (IN) | payer OTHER ==
[2022-03-04 14:17] VITALS: BMI 32.8
[2022-03-04] MEDS ORDERED: IBUPROFEN 400 MG TABLET (FP) PO PRN (14:50)
[2022-03-04] MEDS ORDERED: BENZOCAINE/MENTHOL (CHLORASEPTIC ) LOZENGE MM PRN (14:50)
[2022-03-04] MEDS ORDERED: LOPERAMIDE HCL 2 MG CAPSULE PO PRN (14:50)
[2022-03-04] MEDS ORDERED: ACETAMINOPHEN 325 MG TABLET (FP) PO PRN ×2 (14:50)
[2022-03-04] MEDS ORDERED: DICYCLOMINE HCL 10 MG CAPSULE PO PRN (14:50)
[2022-03-04] MEDS ORDERED: MAGNESIUM HYDROX 2400MG/30ML ORAL SUSPENSION 30 ML CUP PO PRN (14:50)
[2022-03-04] MEDS ORDERED: ONDANSETRON *ODT* 4 MG TABLET SL PRN (14:50)
[2022-03-04] MEDS ORDERED: NALOXONE HCL (KLOXXADO) 8 MG SPRAY NS PRN (14:50)
[2022-03-04] MEDS ORDERED: IBUPROFEN 600 MG TABLET (FP) PO PRN (14:50)
[2022-03-04] MEDS ORDERED: BISMUTH SUBSALICYLATE 262 MG/15 ML BTL PO PRN (14:50)
[2022-03-04] MEDS ORDERED: MAGNESIUM CITRATE 300 ML BOTTLE PO PRN (14:50)
[2022-03-04] MEDS ORDERED: MAG HYDROX/AL HYDROX/SIMETH 30 ML UNIT-DOSE CUP PO PRN (14:50)
[2022-03-04] MEDS ORDERED: METHOCARBAMOL 500 MG TABLET PO PRN (14:50)
[2022-03-04] MEDS ORDERED: DOCUSATE SODIUM 100 MG CAPSULE (FP) PO PRN (15:00)
[2022-03-04] MEDS: hydrOXYzine PAMOATE 25 MG CAPSULE (FP) PO SCH ×2 (17:34→22:17)
[2022-03-04] MEDS: NICOTINE 21 MG/24 HOURS TOPICAL PATCH TD SCH (17:34)
[2022-03-04] MEDS: diazePAM 5 MG TABLET PO SCH ×2 (17:35→22:17)
[2022-03-04] MEDS: MELATONIN 5 MG TABLETS PO SCH (22:17)
[2022-03-04] MEDS: THIAMINE HCL 100 MG TABLET (FP) PO SCH (22:17)
[2022-03-05] MEDS: diazePAM 5 MG TABLET PO SCH ×5 (04:12→22:12)
[2022-03-05] MEDS: hydrOXYzine PAMOATE 25 MG CAPSULE (FP) PO SCH ×5 (05:13→22:12)
[2022-03-05] MEDS: PRENATAL VITAMINS W/ FOLIC ACID TABLET (FP) PO SCH (09:03)
[2022-03-05] MEDS: NICOTINE 21 MG/24 HOURS TOPICAL PATCH TD SCH (09:05)
[2022-03-05] MEDS ORDERED: methaDONE HCL 10 MG TABLET PO SCH (10:00)
[2022-03-05 10:38] LABS: CALCIUM 8.5 mg/dL (8.5-10.1)
[2022-03-05 10:39] LABS: ALBUMIN 3.3 g/dl (3.4-5.0)
[2022-03-05 10:40] LABS: BLOOD UREA NITROGEN 24.1 mg/dL (7-18); HEMATOCRIT 34.9 % (35.4-49); HEMOGLOBIN 11.6 GM/dL (11.7-16.9); MCH 29.3 pg (25.7-33.7); MCHC 33.2 g/dl (32.0-35.9); MEAN CELL VOLUME 88.3 fl (80-96); PLATELET COUNT 228 10^3/uL (134-434); RBC 3.95 M/mm3 (4.00-5.60); RDW 15.8 % (11.9-15.9); WHITE BLOOD COUNT 4.5 K/mm3 (4.0-10.0)
[2022-03-05] MEDS ORDERED: methaDONE HCL 10 MG TABLET ONE (10:40)
[2022-03-05] MEDS ORDERED: methaDONE HCL 40 MG DISPERSABLE TABLET ONE (10:41)
[2022-03-05 10:42] LABS: CREATININE 0.8 mg/dL (0.55-1.3)
[2022-03-05 10:44] LABS: BILIRUBIN,TOTAL 0.6 mg/dL (0.2-1); TOT PROT 6.8 g/dl (6.4-8.2)
[2022-03-05 11:35] LABS: HIV INTERPRETATION NEGATIVE (NEGATIVE)
[2022-03-05] MEDS: diazePAM 5 MG TABLET PO PRN ×2 (12:40→18:07)
[2022-03-05] MEDS: NICOTINE 10 MG CARTRIDGE (INHALER) IH PRN (15:26)
[2022-03-05] MEDS: MELATONIN 5 MG TABLETS PO SCH (22:11)
[2022-03-05] MEDS: THIAMINE HCL 100 MG TABLET (FP) PO SCH (22:11)
[2022-03-06] MEDS: diazePAM 5 MG TABLET PO PRN ×4 (01:32→22:09)
[2022-03-06] MEDS ORDERED: methaDONE HCL 40 MG DISPERSABLE TABLET ONE (04:24)
[2022-03-06] MEDS ORDERED: methaDONE HCL 10 MG TABLET ONE (04:24)
[2022-03-06] MEDS: hydrOXYzine PAMOATE 25 MG CAPSULE (FP) PO SCH ×5 (05:25→22:10)
[2022-03-06] MEDS: diazePAM 5 MG TABLET PO SCH ×2 (05:26→18:38)
[2022-03-06] MEDS: NICOTINE 21 MG/24 HOURS TOPICAL PATCH TD SCH (10:38)
[2022-03-06] MEDS: PRENATAL VITAMINS W/ FOLIC ACID TABLET (FP) PO SCH (10:38)
[2022-03-06] MEDS: NICOTINE 10 MG CARTRIDGE (INHALER) IH PRN (10:39)
[2022-03-06] MEDS: THIAMINE HCL 100 MG TABLET (FP) PO SCH (22:10)
[2022-03-06] MEDS: MELATONIN 5 MG TABLETS PO SCH (22:10)
[2022-03-07] MEDS ORDERED: methaDONE HCL 40 MG DISPERSABLE TABLET ONE (04:10)
[2022-03-07] MEDS ORDERED: methaDONE HCL 10 MG TABLET ONE (04:10)
[2022-03-07] MEDS: hydrOXYzine PAMOATE 25 MG CAPSULE (FP) PO SCH ×2 (05:34→10:34)
[2022-03-07] MEDS ORDERED: diazePAM 5 MG TABLET PO ONE (06:00)
[2022-03-07 09:30] VITALS: BP 141/82; PULSE 54; TEMP 97.5
[2022-03-07] MEDS: NICOTINE 21 MG/24 HOURS TOPICAL PATCH TD SCH (10:33)
[2022-03-07] MEDS: PRENATAL VITAMINS W/ FOLIC ACID TABLET (FP) PO SCH (10:33)
[2022-03-07] MEDS: NICOTINE 10 MG CARTRIDGE (INHALER) IH PRN (10:34)
[2022-03-07] MEDS: diazePAM 5 MG TABLET PO PRN (10:34)
== END 2022-03-07 11:39 | disposition home or self-care (01) | DRG 773 ==
LOC: YASAS 13:09 → Y3N 15:24
PROVIDERS: ADMIT Allergy & Immunology; ATTEND Surgery
PROC: HZ2ZZZZ Detoxification Services for Substance Abuse Treatment (ICD-10-PCS; principal; 2022-03-04)
DX: F13.230 Sedative, hypnotic or anxiolytic dependence with withdrawal, uncomplicated (principal); F11.20 Opioid dependence, uncomplicated; F14.20 Cocaine dependence, uncomplicated; F17.210 Nicotine dependence, cigarettes, uncomplicated; K21.9 Gastro-esophageal reflux disease without esophagitis; M16.0 Bilateral primary osteoarthritis of hip; M17.0 Bilateral primary osteoarthritis of knee; R79.89 Other specified abnormal findings of blood chemistry; E66.9 Obesity, unspecified; Z68.32 Body mass index [BMI] 32.0-32.9, adult; Z86.11 Personal history of tuberculosis; Z86.19 Personal history of other infectious and parasitic diseases
CPT/HCPCS: 36415; 80053; 85027; 86780; 87389; 87811; C9803-CS; U0003; U0005

== ENCOUNTER 2023-12-29 12:11 | Inpatient (IN) | payer OTHER ==
[2023-12-29 13:56] VITALS: BMI 28.6
[2023-12-29] MEDS ORDERED: POLYETHYLENE GLYCOL (HEALTHYLAX) 3350 17 GM PACKET PO PRN (15:15)
[2023-12-29] MEDS ORDERED: NALOXONE HCL 0.4 MG/ML VIAL IM PRN (15:15)
[2023-12-29] MEDS ORDERED: BENZONATATE 200 MG CAPSULE PO PRN (15:15)
[2023-12-29] MEDS ORDERED: BISMUTH SUBSALICYLATE 524 MG/30 ML PO PRN (15:15)
[2023-12-29] MEDS ORDERED: IBUPROFEN 400 MG TABLET (FP) PO PRN (15:15)
[2023-12-29] MEDS ORDERED: MAGNESIUM HYDROX 2400MG/30ML ORAL SUSPENSION 30 ML CUP PO PRN (15:15)
[2023-12-29] MEDS ORDERED: guaiFENesin 600 MG TABLET.ER (FP) PO PRN (15:15)
[2023-12-29] MEDS ORDERED: DICYCLOMINE HCL 10 MG CAPSULE PO PRN (15:15)
[2023-12-29] MEDS ORDERED: NALOXONE HCL (KLOXXADO) 8 MG SPRAY NS PRN (15:15)
[2023-12-29] MEDS ORDERED: LOPERAMIDE HCL 2 MG CAPSULE PO PRN (15:15)
[2023-12-29] MEDS ORDERED: NICOTINE POLACRILEX 2 MG GUM BUC PRN (15:15)
[2023-12-29] MEDS ORDERED: BENZOCAINE/MENTHOL (CHLORASEPTIC ) LOZENGE MM PRN (15:15)
[2023-12-29] MEDS ORDERED: NICOTINE POLACRILEX 2 MG LOZENGE BC PRN (15:15)
[2023-12-29] MEDS ORDERED: ONDANSETRON *ODT* 4 MG TABLET SL PRN (15:15)
[2023-12-29] MEDS ORDERED: MAG HYDROX/AL HYDROX/SIMETH 30 ML UNIT-DOSE CUP ONE (16:48)
[2023-12-29] MEDS: MAG HYDROX/AL HYDROX/SIMETH 30 ML UNIT-DOSE CUP PO PRN (16:50)
[2023-12-29] MEDS: levETIRAcetam 500 MG TABLET (FP) PO SCH (17:19)
[2023-12-29] MEDS: METHOCARBAMOL 500 MG TABLET PO PRN (17:21)
[2023-12-29] MEDS: MELATONIN 5 MG TABLETS PO SCH (22:53)
[2023-12-29] MEDS: THIAMINE 100 MG TABLET PO SCH (22:53)
[2023-12-30] MEDS: methaDONE HCL 40 MG DISPERSABLE TABLET PO SCH (07:57)
[2023-12-30] MEDS: methaDONE 40 MG, methaDONE 30 MG PO SCH (08:02)
[2023-12-30] MEDS: PRENATAL VITAMINS W/ FOLIC ACID TABLET (FP) PO SCH (09:58)
[2023-12-30] MEDS: diazePAM 5 MG TABLET PO SCH (11:19)
[2023-12-30] MEDS: diazePAM 5 MG TABLET PO PRN (14:42)
[2023-12-30] MEDS: IBUPROFEN 600 MG TABLET (FP) PO PRN (17:28)
[2023-12-31] MEDS: ACETAMINOPHEN 325 MG TABLET (FP) PO PRN (19:43)
[2023-12-31] MEDS: GABAPENTIN 300 MG CAPSULE PO SCH (22:18)
[2024-01-01] MEDS: diazePAM 5 MG TABLET PO SCH (06:26)
[2024-01-02] MEDS: diazePAM 5 MG TABLET PO SCH (05:50)
[2024-01-02 20:55] VITALS: PULSE 60
[2024-01-03] MEDS: diazePAM 5 MG TABLET PO ONE (05:41)
[2024-01-03 06:47] VITALS: BP 117/77; RESP 16; TEMP 97.7
== END 2024-01-03 08:58 | disposition home or self-care (01) | DRG 773 ==
LOC: YASAS 12:11 → Y6N 16:36 → Y3N 23:15
PROVIDERS: ADMIT Allergy & Immunology; ATTEND Surgery
PROC: HZ2ZZZZ Detoxification Services for Substance Abuse Treatment (ICD-10-PCS; principal; 2023-12-29)
DX: F10.230 Alcohol dependence with withdrawal, uncomplicated (principal); F11.20 Opioid dependence, uncomplicated; F13.10 Sedative, hypnotic or anxiolytic abuse, uncomplicated; F15.10 Other stimulant abuse, uncomplicated; F17.210 Nicotine dependence, cigarettes, uncomplicated; K21.9 Gastro-esophageal reflux disease without esophagitis; M16.0 Bilateral primary osteoarthritis of hip; M17.0 Bilateral primary osteoarthritis of knee; Z86.11 Personal history of tuberculosis; Z86.19 Personal history of other infectious and parasitic diseases; Z86.69 Personal history of other diseases of the nervous system and sense organs
CPT/HCPCS: 71046-TC-FY; 80305; 93005; 93010